=== PATIENT | male | born 1985 | race Caucasian/White ===

== ENCOUNTER 2017-02-09 12:10 | Emergency (ER) | payer MEDICARE, SELFPAY ==
[2017-02-09 12:34] VITALS: BP 140/91
[2017-02-09] MEDS ORDERED: Lactated Ringers 1,000 ML IV ONE ×2 (12:43→13:24)
--- NOTE | 2017-02-09 12:43 | EDM.PDOC ---
ED HPI GI/ABDOMINAL - General Chief Complaint: Gastrointestinal Problem Stated Complaint: VOMITING AND DIARRHEA Time Seen by Provider: 02/09/17 12:37 Source of Information: Reports: Patient History Limitations: Reports: No limitations - History of Present Illness INITIAL COMMENTS - FREE TEXT/NARRATIVE: Patient presents for evaluation and treatment of a headache, nausea, vomiting and diarrhea. Patient reports that the headache is located behind his eyes. He states that he used to frequently get headaches and this is similar to previous headaches. This headache started about 3 days ago. Patient also reports nausea and vomiting. States that the vomiting started today. Reports about 3-4 episodes of vomiting today. Patient also reports that he developed diarrhea today. He states he found about 10 episodes of diarrhea today. Patient denies any fevers, cough, abdominal pain, sore throat, dysuria, hematuria, hematemesis or any melena or hematochezia. Patient denies any ill contacts. He states that he just returned from the [facility] about 3 days ago. He states that they were there for about one month. - Related Data Allergies/ADRs: Allergies Allergy/AdvReac Type Severity Reaction Status Date / Time cefaclor [From [facility]] Allergy Rash Verified 02/09/17 12:25 Penicillins Allergy Rash Verified 02/09/17 12:25 Home Meds: Home Meds ClonazePAM [KlonoPIN] 1 mg PO BID 12/01/14 [History] Levothyroxine 125 mcg PO ACBREAKFAST 02/18/16 [History] Ondansetron [Zofran ODT] 4 mg PO Q6H PRN #15 tab.dis 02/09/17 [Rx] PARoxetine HCl [Paxil] 30 mg PO DAILY 02/09/17 [History] Past Medical History HEENT History: Reports: Impaired vision Other HEENT History: wears eyeglasses Musculoskeletal History: Reports: Fibromyalgia Neurological History: Reports: Concussion, Headaches, chronic Psychiatric History: Reports: Anxiety, Depression, Suicide attempt Endocrine/Metabolic History: Reports: Hypothyroidism Dermatologic History: Reports: Other (see below) Other Dermatologic History: yeast infections - Infectious Disease History Infectious Disease History: Reports: Chicken pox - Past Surgical History HEENT Surgical History: Reports: Myringotomy w tube(s), Naso-sinus surgery, Tonsillectomy Social & Family History - Tobacco Use Smoking Status *Q: Current Some Day Smoker Years of Tobacco use: 12 Packs/Tins Daily: 0.2 Used Tobacco, but Quit: No Second Hand Smoke Exposure: No - Caffeine Use Caffeine Use Comment: unable to obtain - Recreational Drug Use Recreational Drug Use: No Recreational Drug Type: Reports: Other (see below) - Living Situation & Occupation Living situation: Reports: , with family Occupation: unemployed ED ROS GENERAL - Review of Systems Review Of Systems: See Below Constitutional: Reports: chills. Denies: fever HEENT: Denies: Throat pain GI/Abdominal: Reports: Diarrhea, Nausea, Vomiting. Denies: Abdominal pain, Hematochezia, Melena : Reports: no symptoms. Denies: dysuria, hematuria Neurological: Reports: Headache ED EXAM, GI/ABD - Physical Exam Exam: See Below Exam Limited By: No limitations General Appearance: alert, WD/WN, no apparent distress, obese Respiratory/Chest: no respiratory distress, lungs clear, normal breath sounds Cardiovascular: normal peripheral pulses, regular rate, rhythm, no murmur GI/Abdominal: soft, non tender, hyperactive bowel sounds Neurological: alert, oriented, normal cognition Psychiatric: normal affect, normal mood Skin Exam: Warm, Dry Course - Vital Signs Last Recorded V/S: Last Vital Signs Temp 36.7 C 02/09/17 12:29 Pulse 76 02/09/17 16:03 Resp 15 02/09/17 16:03 BP 140/91 H 02/09/17 12:29 Pulse Ox 96 02/09/17 16:03 - Orders/Labs/Meds Orders: Active Orders 24 hr Category Date Time Status Peripheral IV Care [RC] . DIRECTED Care 02/09/17 12:44 Active Peripheral IV Insertion Adult [OM.PC] Routine Oth 02/09/17 12:43 Ordered Labs: Laboratory Tests 02/09/17 02/09/17 Range/Units 12:35 12:35 WBC 14.45 H (4.23-9.07) K/mm3 RBC 5.43 (4.63-6.08) M/mm3 Hgb 15.5 (13.7-17.5) gm/L Hct 43.9 (40.1-51.0) % MCV 80.8 (79.0-92.2) fl MCH 28.5 (25.7-32.2) pg MCHC 35.3 (32.2-35.5) g/dl RDW Std Deviation 38.7 (35.1-43.9) fL Plt Count 289 (163-337) K/mm3 MPV 10.0 (9.4-12.3) fl Neut % (Auto) 80.4 H (34.0-67.9) % Lymph % (Auto) 10.9 L (21.8-53.1) % [place] % (Auto) 8.0 (5.3-12.2) % Eos % (Auto) 0.2 L (0.8-7.0) Baso % (Auto) 0.2 (0.1-1.2) % Neut # (Auto) 11.61 H (1.78-5.38) K/mm3 Lymph # (Auto) 1.58 (1.32-3.57) K/mm3 [place] # (Auto) 1.16 H (0.30-0.82) K/mm3 Eos # (Auto) 0.03 L (0.04-0.54) K/mm3 Baso # (Auto) 0.03 (0.01-0.08) K/mm3 Manual Slide Review Normal smear Sodium 137 (136-145) mEq/L Potassium 3.3 L (3.5-5.1) mEq/L Chloride 100 (98-107) mEq/L Carbon Dioxide 21 (21-32) mEq/L Anion Gap 19.3 H (5-15) BUN 10 (7-18) mg/dL Creatinine 1.1 (0.7-1.3) mg/dL Est Cr Clr Drug Dosing 102.68 mL/min Estimated GFR (MDRD) > 60 (>60) mL/min BUN/Creatinine Ratio 9.1 L (14-18) Glucose 122 H (74-106) mg/dL Calcium 9.2 (8.5-10.1) mg/dL Total Bilirubin 0.6 (0.2-1.0) mg/dL AST 19 (15-37) U/L ALT 34 (16-63) U/L Alkaline Phosphatase 78 (46-116) U/L C-Reactive Protein 0.9 (<1.0) mg/dL Total Protein 8.2 (6.4-8.2) g/dl Albumin 4.2 (3.4-5.0) g/dl Globulin 4.0 gm/dL Albumin/Globulin Ratio 1.1 (1-2) Meds: Medications Discontinued Medications Generic Name Dose Route Start Last Admin Trade Name Dick PRN Reason Stop Dose Admin Lactated Ringer's 1,000 mls @ 999 mls/hr 02/09/17 12:43 02/09/17 12:55 Ringers, Lactated IV 02/09/17 13:43 999 mls/hr .BOLUS ONE Administration Lactated Ringer's 1,000 mls @ 999 mls/hr 02/09/17 13:24 02/09/17 14:00 Ringers, Lactated IV 02/09/17 14:24 999 mls/hr .BOLUS ONE Administration Ketorolac Tromethamine 30 mg 02/09/17 12:44 02/09/17 12:55 Toradol IVPUSH 02/09/17 12:45 30 mg ONETIME ONE Administration Ondansetron HCl 4 mg 02/09/17 12:44 02/09/17 12:55 Zofran IVPUSH 02/09/17 12:45 4 mg ONETIME ONE Administration Potassium Bicarbonate 10 meq 02/09/17 13:48 02/09/17 14:01 Effer-K PO 02/09/17 13:49 10 meq ONETIME ONE Administration Sodium Chloride 10 ml 02/09/17 12:44 02/09/17 12:56 Saline Flush FLUSH 10 ml ASDIRECTED PRN Administration Keep Vein Open - Re-Assessments/Exams Free Text/Narrative Re-Assessment/Exam: 02/09/17 13:29 Headache, nausea and vomiting improved. Plan is to give a 2nd bolus and potassium. Will plan on discharge home today. 02/09/17 15:29 Headache resolved. Nausea resolved. Feeling significantly better Labs returned. WBC is 14.45, hgb is 15.5 and plts are 289 Sodium is 137, potassium is 3.3 (10mEq effer-K given), chloride is 100. Anion gap is 19.3. Glucose is 122 CRP is 0.9 Reviewed the labs with the patient. Advised this will likely last about 1-3 days. Follow-up with family med if symptoms persist beyond 3 days. Discharge instructions as documented. Departure - Departure Time of Disposition: 15:31 Disposition: Home, Self-Care 01 Condition: good Clinical Impression: Gastroenteritis Prescriptions: Ondansetron [Zofran ODT] 4 mg PO Q6H PRN #15 tab.dis PRN Reason: Nausea Instructions: Viral Gastroenteritis, Adult, [id number] Referrals: Taran Richardson MD [Primary Care Provider] - Forms: ED Department Discharge Additional Instructions: Recommend clear liquids and a bland diet. [place] diet recommendations include bread, crackers, soup broth, bananas, egg whites, etc. Take the Zofran one tablet sublingual every 6-8 hours as needed for nausea. Recommend you start a probiotic. These are available [id number]. Expect your illness to last one to 3 days. Should your illness last beyond that followup with family medicine or internal medicine. I recommend Dr. Dolan at the [facility]. call [phone] schedule with him. Please return to the ER should your symptoms change or worsen. - My Orders Last 24 Hours: My Active Orders 02/09/17 12:43 Peripheral IV Insertion Adult [OM.PC] Routine 02/09/17 12:44 Peripheral IV Care [RC] . DIRECTED - Assessment/Plan Last 24 Hours: My Active Orders 02/09/17 12:43 Peripheral IV Insertion Adult [OM.PC] Routine 02/09/17 12:44 Peripheral IV Care [RC] . DIRECTED
[2017-02-09] MEDS ORDERED: Ketorolac 30 MG/ML SDV IVPUSH ONE (12:44)
[2017-02-09] MEDS ORDERED: Ondansetron 4 MG/2 ML SDV IVPUSH ONE (12:44)
[2017-02-09] MEDS ORDERED: Sodium Chloride 0.9% 10 ML Syringe FLUSH PRN (12:44)
[2017-02-09] MEDS ORDERED: Potassium Bicarbonate/Cit Ac 10 MEQ Effervescent Tab PO ONE (13:48)
== END 2017-02-09 16:05 | disposition home or self-care (01) ==
LOC: JD.ED 12:10
DX: K52.9 Noninfective gastroenteritis and colitis, unspecified (principal); F41.9 Anxiety disorder, unspecified; F32.9 Major depressive disorder, single episode, unspecified; E03.9 Hypothyroidism, unspecified; Z88.8 Allergy status to other drugs, medicaments and biological substances; Z88.0 Allergy status to penicillin; Z79.899 Other long term (current) drug therapy; Z98.890 Other specified postprocedural states
CPT/HCPCS: 36415; 80053; 85025; 86140; 96361; 96374; 96375; 99284; A9270; J1885; J2405; J7050; J7120

== ENCOUNTER 2017-12-24 17:32 | Emergency (ER) | payer MEDICARE ==
[2017-12-24 17:41] VITALS: BP 155/93
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
== END 2017-12-24 22:13 | disposition home or self-care (01) ==
LOC: JD.ED 17:32
DX: F22 Delusional disorders (principal); Z88.0 Allergy status to penicillin; Z88.1 Allergy status to other antibiotic agents; E03.9 Hypothyroidism, unspecified; Z87.891 Personal history of nicotine dependence
CPT/HCPCS: 99284

== ENCOUNTER 2017-12-30 19:26 | Emergency (ER) | payer MEDICARE ==
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
[2017-12-30] MEDS ORDERED: OLANZapine 5 MG Tab PO ONE (21:46)
[2017-12-30] MEDS ORDERED: ClonazePAM 1 MG Tab PO ONE (21:47)
[2017-12-30] MEDS ORDERED: traZODone 50 MG Tab PO ONE (21:48)
[2017-12-31] MEDS ORDERED: Haloperidol 5 MG Tab PO ONE (06:30)
[2017-12-31] MEDS ORDERED: OLANZapine 5 MG Tab PO ONE (06:34)
[2017-12-31] MEDS ORDERED: OLANZapine 5 MG Tab ONE (06:41)
[2017-12-31 07:30] VITALS: BP 144/84
== END 2017-12-31 07:28 ==
LOC: JD.ED 19:26
DX: F32.9 Major depressive disorder, single episode, unspecified (principal); F22 Delusional disorders; R45.851 Suicidal ideations; E03.9 Hypothyroidism, unspecified; Z88.1 Allergy status to other antibiotic agents; Z88.0 Allergy status to penicillin; I10 Essential (primary) hypertension; Z87.891 Personal history of nicotine dependence
CPT/HCPCS: 36415; 80053; 80306; 84443; 85025; 99285; A9270-GY; G0480

== ENCOUNTER 2018-01-08 17:19 | Emergency (ER) | payer MEDICARE ==
[2018-01-08 17:36] VITALS: BP 157/92
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
[2018-01-08 18:38] LABS: ACETAMINOPHEN 0 ug/mL (10-30)
== END 2018-01-08 19:40 ==
LOC: JD.ED 17:19
DX: F20.9 Schizophrenia, unspecified (principal); I10 Essential (primary) hypertension; F32.9 Major depressive disorder, single episode, unspecified; E03.9 Hypothyroidism, unspecified; Z87.891 Personal history of nicotine dependence; Z79.899 Other long term (current) drug therapy; Z88.0 Allergy status to penicillin; Z88.1 Allergy status to other antibiotic agents
CPT/HCPCS: 36415; 80053; 80306; 85025; 99285; G0480

== ENCOUNTER 2018-01-21 20:35 | Emergency (ER) | payer MEDICARE ==
[2018-01-21 20:47] VITALS: BP 137/80
--- NOTE | 2018-01-21 21:13 | EDM.PDOCBH ---
ED HPI GENERAL MEDICAL PROBLEM - General Chief Complaint: Behavioral/Psych Stated Complaint: SUICIDAL Time Seen by Provider: 01/21/18 20:53 Source of Information: Reports: Patient History Limitations: Reports: No Limitations - History of Present Illness INITIAL COMMENTS - FREE TEXT/NARRATIVE: 32-year-old male presents for evaluation and treatment of suicidal ideation. This is the patient's fourth visit to the ER this month for psychiatric illness. He has a history of depression, anxiety and schizophrenia. He's been admitted to [facility], twice this month, most recently discharged 4 days ago. He comes in [facility] complaining of suicidal thoughts and a plan. He states that he has many plans. Reports that he has been considering knives. He does not have a gun at home. He has had suicidal attempts in the past including overdose. Patient currently sees Dr. braswell at [facility]. He states he saw her a few days ago. They did come up with a crisis plan was instructed to come to the hospital if he has any thoughts of suicide. He is currently taking his medications as prescribed and was recently started on Haldol. He states he feels this is working but he feels he needs medication adjustments. No illicit drug use or alcohol use. Denies any medical concerns. No fevers, chills, nausea, vomiting, chest pain or abdominal pain. - Related Data Allergies Allergy/AdvReac Type Severity Reaction Status Date / Time cefaclor [From [facility]] Allergy Rash Verified 01/21/18 20:42 Penicillins Allergy Rash Verified 01/21/18 20:42 Home Meds: Home Meds ClonazePAM [KlonoPIN] 1 mg PO TID 12/01/14 [History] Levothyroxine 150 mcg PO ACBREAKFAST 02/18/16 [History] ARIPiprazole [Abilify] 10 mg PO DAILY #14 tab 12/24/17 [Rx] Lisinopril 20 mg PO DAILY 12/24/17 [History] Venlafaxine [Effexor] 225 mg PO DAILY 12/24/17 [History] traZODone 200 mg PO BEDTIME 12/24/17 [History] Haldol. 01/21/18 [History] Past Medical History HEENT History: Reports: Impaired Vision Other HEENT History: wears eyeglasses Cardiovascular History: Reports: Hypertension Musculoskeletal History: Reports: Fibromyalgia Neurological History: Reports: Concussion, Headaches, Chronic Psychiatric History: Reports: Anxiety, Depression, Schizophrenia, Suicide Attempt, Suicidal Ideation Endocrine/Metabolic History: Reports: Hypothyroidism Dermatologic History: Reports: Other (See Below) Other Dermatologic History: yeast infections - Infectious Disease History Infectious Disease History: Reports: Chicken Pox - Past Surgical History HEENT Surgical History: Reports: Myringotomy w Tube(s), Naso-Sinus Surgery, Tonsillectomy Social & Family History - Tobacco Use Smoking Status *Q: Former Smoker Years of Tobacco use: 12 Packs/Tins Daily: 0.2 Used Tobacco, but Quit: No Month/Year Tobacco Last Used: 2014 Second Hand Smoke Exposure: No - Caffeine Use Caffeine Use: Reports: Coffee Other Caffeine Use: aspercane thru diet soda Caffeine Use Comment: unable to obtain - Recreational Drug Use Recreational Drug Use: Yes Drug Use in Last 12 Months: Yes Recreational Drug Type: Reports: Marijuana/Hashish Other Recreational Drug Type: adderal - Living Situation & Occupation Living situation: Reports: , with Family Occupation: Unemployed ED ROS GENERAL - Review of Systems Review Of Systems: See Below Constitutional: Denies: Fever, Chills Cardiovascular: Denies: Chest Pain GI/Abdominal: Denies: Abdominal Pain, Nausea, Vomiting ED EXAM, BEHAVIORAL HEALTH - Physical Exam Exam: See Below Exam Limited By: No Limitations General Appearance: Alert, WD/WN, No Apparent Distress, Obese Ears: Normal External Exam Throat/Mouth: Normal Inspection, Normal Voice, No Airway Compromise Respiratory/Chest: No Respiratory Distress, Lungs Clear, Normal Breath Sounds Cardiovascular: Normal Peripheral Pulses, Regular Rate, Rhythm, No Murmur GI/Abdominal: Soft, Non-Tender Neurological: Alert, Normal Mood/Affect, Normal Cognition Psychiatric: Depressed Mood, Suicidal Plan, Suicidal Thoughts, Paranoid Thoughts Skin Exam: Warm, Dry, Normal color COURSE, BEHAVIORAL HEALTH COMP - Course Vital Signs: Last Vital Signs Temp 36.4 C 01/21/18 20:44 Pulse 110 H 01/21/18 20:44 Resp 16 01/21/18 20:44 BP 137/80 01/21/18 20:44 Pulse Ox 96 01/21/18 20:44 Orders, Labs, Meds: Active Orders 24 hr Category Date Time Status DRUG SCREEN, URINE [URCHEM] Stat Lab 01/21/18 22:00 Ordered UA W/MICROSCOPIC [URIN] Stat Lab 01/21/18 22:00 Ordered Laboratory Tests 01/21/18 01/21/18 01/21/18 Range/Units 21:15 21:15 21:15 WBC 11.51 H (4.23-9.07) K/mm3 RBC 5.09 (4.63-6.08) M/mm3 Hgb 14.9 (13.7-17.5) gm/L Hct 44.1 (40.1-51.0) % MCV 86.6 (79.0-92.2) fl MCH 29.3 (25.7-32.2) pg MCHC 33.8 (32.2-35.5) g/dl RDW Std Deviation 40.6 (35.1-43.9) fL Plt Count 290 (163-337) K/mm3 MPV 11.0 (9.4-12.3) fl Neut % (Auto) 58.3 (34.0-67.9) % Lymph % (Auto) 30.6 (21.8-53.1) % [place] % (Auto) 7.8 (5.3-12.2) % Eos % (Auto) 2.6 (0.8-7.0) Baso % (Auto) 0.3 (0.1-1.2) % Neut # (Auto) 6.70 H (1.78-5.38) K/mm3 Lymph # (Auto) 3.52 (1.32-3.57) K/mm3 [place] # (Auto) 0.90 H (0.30-0.82) K/mm3 Eos # (Auto) 0.30 (0.04-0.54) K/mm3 Baso # (Auto) 0.04 (0.01-0.08) K/mm3 Sodium 142 (136-145) mEq/L Potassium 3.8 (3.5-5.1) mEq/L Chloride 104 (98-107) mEq/L Carbon Dioxide 26 (21-32) mEq/L Anion Gap 15.8 H (5-15) BUN 13 (7-18) mg/dL Creatinine 1.4 H (0.7-1.3) mg/dL Est Cr Clr Drug Dosing 79.93 mL/min Estimated GFR (MDRD) 58 (>60) mL/min BUN/Creatinine Ratio 9.3 L (14-18) Glucose 102 (74-106) mg/dL Calcium 9.3 (8.5-10.1) mg/dL Total Bilirubin 0.2 (0.2-1.0) mg/dL AST 37 (15-37) U/L ALT 47 (16-63) U/L Alkaline Phosphatase 59 (46-116) U/L Total Protein 7.4 (6.4-8.2) g/dl Albumin 4.3 (3.4-5.0) g/dl Globulin 3.1 gm/dL Albumin/Globulin Ratio 1.4 (1-2) TSH 3rd Generation 15.784 H (0.358-3.74) uIU/mL Urine Color (Yellow) Urine Appearance (Clear) Urine pH (5.0-8.0) Ur Specific [place] (1.005-1.030) Urine Protein (Negative) Urine Glucose (UA) (Negative) Urine Ketones (Negative) Urine Occult Blood (Negative) Urine Nitrite (Negative) Urine Bilirubin (Negative) Urine Urobilinogen (0.2-1.0) Ur Leukocyte Esterase (Negative) Urine RBC (0-5) /hpf Urine WBC (0-5) /hpf Ur Epithelial Cells (0-5) /hpf Urine Bacteria (FEW) /hpf Urine Mucus (FEW) /hpf Salicylates 1.3 L (2.8-20) mg/dL Urine Opiates Screen (NEGATIVE) Ur Buprenorphine Scrn (NEGATIVE) Ur Oxycodone Screen (NEGATIVE) Urine Methadone Screen (NEGATIVE) Ur Propoxyphene Screen (NEGATIVE) Acetaminophen 0 L (10-30) ug/mL Ur Barbiturates Screen (NEGATIVE) Ur Tricyclics Screen (NEGATIVE) Ur Phencyclidine Scrn (NEGATIVE) Ur Amphetamine Screen (NEGATIVE) U Methamphetamines Scrn (NEGATIVE) U Benzodiazepines Scrn (NEGATIVE) U Cocaine Metab Screen (NEGATIVE) U Marijuana (THC) Screen (NEGATIVE) Ethyl Alcohol 0.00 (0.00) gm% 01/21/18 01/21/18 Range/Units 22:00 22:00 WBC (4.23-9.07) K/mm3 RBC (4.63-6.08) M/mm3 Hgb (13.7-17.5) gm/L Hct (40.1-51.0) % MCV (79.0-92.2) fl MCH (25.7-32.2) pg MCHC (32.2-35.5) g/dl RDW Std Deviation (35.1-43.9) fL Plt Count (163-337) K/mm3 MPV (9.4-12.3) fl Neut % (Auto) (34.0-67.9) % Lymph % (Auto) (21.8-53.1) % Bo[place] % (Auto) (5.3-12.2) % Eos % (Auto) (0.8-7.0) Baso % (Auto) (0.1-1.2) % Neut # (Auto) (1.78-5.38) K/mm3 Lymph # (Auto) (1.32-3.57) K/mm3 Bo[place] # (Auto) (0.30-0.82) K/mm3 Eos # (Auto) (0.04-0.54) K/mm3 Baso # (Auto) (0.01-0.08) K/mm3 Sodium (136-145) mEq/L Potassium (3.5-5.1) mEq/L Chloride (98-107) mEq/L Carbon Dioxide (21-32) mEq/L Anion Gap (5-15) BUN (7-18) mg/dL Creatinine (0.7-1.3) mg/dL Est Cr Clr Drug Dosing mL/min Estimated GFR (MDRD) (>60) mL/min BUN/Creatinine Ratio (14-18) Glucose (74-106) mg/dL Calcium (8.5-10.1) mg/dL Total Bilirubin (0.2-1.0) mg/dL AST (15-37) U/L ALT (16-63) U/L Alkaline Phosphatase (46-116) U/L Total Protein (6.4-8.2) g/dl Albumin (3.4-5.0) g/dl Globulin gm/dL Albumin/Globulin Ratio (1-2) TSH 3rd Generation (0.358-3.74) uIU/mL Urine Color Yellow (Yellow) Urine Appearance Clear (Clear) Urine pH 6.5 (5.0-8.0) Ur Specific [place] 1.020 (1.005-1.030) Urine Protein Negative (Negative) Urine Glucose (UA) Negative (Negative) Urine Ketones Negative (Negative) Urine Occult Blood Negative (Negative) Urine Nitrite Negative (Negative) Urine Bilirubin Negative (Negative) Urine Urobilinogen 0.2 (0.2-1.0) Ur Leukocyte Esterase Negative (Negative) Urine RBC 0-5 (0-5) /hpf Urine WBC Not seen (0-5) /hpf Ur Epithelial Cells 0-5 (0-5) /hpf Urine Bacteria Not seen (FEW) /hpf Urine Mucus Not seen (FEW) /hpf Salicylates (2.8-20) mg/dL Urine Opiates Screen Negative (NEGATIVE) Ur Buprenorphine Scrn Negative (NEGATIVE) Ur Oxycodone Screen Negative (NEGATIVE) Urine Methadone Screen Negative (NEGATIVE) Ur Propoxyphene Screen Negative (NEGATIVE) Acetaminophen (10-30) ug/mL Ur Barbiturates Screen Negative (NEGATIVE) Ur Tricyclics Screen Negative (NEGATIVE) Ur Phencyclidine Scrn Negative (NEGATIVE) Ur Amphetamine Screen Negative (NEGATIVE) U Methamphetamines Scrn Negative (NEGATIVE) U Benzodiazepines Scrn Negative (NEGATIVE) U Cocaine Metab Screen Negative (NEGATIVE) U Marijuana (THC) Screen Negative (NEGATIVE) Ethyl Alcohol (0.00) gm% Medications Discontinued Medications Generic Name Dose Route Start Last Admin Trade Name Freq PRN Reason Stop Dose Admin Ketorolac Tromethamine 60 mg 01/21/18 21:32 01/21/18 21:41 Toradol IM 01/21/18 21:33 60 mg ONETIME ONE Administration Re-Assessment/Re-Exam: 22:45 I reviewed the labs with the patient. Denies any medical concerns. Reviewed his TSH with him. He is hypothyroid. I informed him when he comes back he should see primary care provider to have his thyroid medication adjusted. Case discussed with Dr. Rai, psychiatrist on-call at [facility] in [place]. She agrees to accept the patient. Departure - Departure Time of Disposition: 22:46 Disposition: DC/Tfer to Psych Hosp/Unit [facility] Condition: Fair Clinical Impression: Suicidal ideation - Discharge Information Referrals: Indira Braswell MD [Primary Care Provider] - Forms: ED Department Discharge Additional Instructions: Patient will go by Unit Aide's Department to [facility] in [place]. Dr. Rai excepting. When he is to return home he should follow-up with family medicine for routine checkup as well as adjustments in his thyroid medication. - My Orders Last 24 Hours: My Active Orders 01/21/18 22:00 DRUG SCREEN, URINE [URCHEM] Stat UA W/MICROSCOPIC [URIN] Stat - Assessment/Plan Last 24 Hours: My Active Orders 01/21/18 22:00 DRUG SCREEN, URINE [URCHEM] Stat UA W/MICROSCOPIC [URIN] Stat
[2018-01-21] MEDS ORDERED: Ketorolac 60 MG/2 ML SDV IM ONE (21:32)
== END 2018-01-21 23:33 ==
LOC: JD.ED 20:35
DX: R45.851 Suicidal ideations (principal); I10 Essential (primary) hypertension; F41.9 Anxiety disorder, unspecified; F32.9 Major depressive disorder, single episode, unspecified; Z88.0 Allergy status to penicillin; Z88.8 Allergy status to other drugs, medicaments and biological substances; Z79.899 Other long term (current) drug therapy; Z87.891 Personal history of nicotine dependence
CPT/HCPCS: 36415; 80053; 80306; 81001; 84443; 85025; 96372; 99285; G0480; J1885; 99284

== ENCOUNTER 2018-12-09 21:19 | Emergency (ER) | payer MEDICARE, OTHER ==
[2018-12-09 21:29] VITALS: BP 145/99
--- NOTE | 2018-12-09 22:04 | EDM.PDOCBH ---
ED HPI GENERAL MEDICAL PROBLEM - General Chief Complaint: Behavioral/Psych Stated Complaint: suicidal thoughts Time Seen by Provider: 12/09/18 21:41 Source of Information: Reports: Patient, Family (), RN Notes Reviewed History Limitations: Reports: No Limitations - History of Present Illness INITIAL COMMENTS - FREE TEXT/NARRATIVE: The patient states that he has been feeling suicidal for approximately 3 months. He has not formulated a plan, and has not attempted to harm himself. The patient has a history of anxiety, depression, and schizophrenia, with approximately 5 prior suicide attempts, all by overdose, most recently in 2017. The patient denies having hallucinations, only that he sometimes tells himself "Oh, I ought to kill myself". The patient's Psychiatrist is Dr. Braswell. He states that he last saw her about 5 months ago. He is unable to say why he has not contacted her within the last 3 months. He states, however, that his venlafaxine dosage was increased about 3 months ago per her RN. He states that he has been compliant with his psychiatric medications. The patient's PCP was Gayla Welch. - Related Data Allergies Allergy/AdvReac Type Severity Reaction Status Date / Time cefaclor [From [facility]] Allergy Rash Verified 12/09/18 21:29 Penicillins Allergy Rash Verified 12/09/18 21:29 Home Meds: Home Meds ClonazePAM [KlonoPIN] 1 mg PO TID 12/01/14 [History] Levothyroxine 150 mcg PO ACBREAKFAST 02/18/16 [History] Lisinopril 20 mg PO DAILY 12/24/17 [History] Venlafaxine [Effexor] 225 mg PO DAILY 12/24/17 [History] traZODone 200 mg PO BEDTIME 12/24/17 [History] Past Medical History HEENT History: Reports: Impaired Vision Other HEENT History: wears eyeglasses Cardiovascular History: Reports: Hypertension Neurological History: Reports: Headaches, Chronic Psychiatric History: Reports: Anxiety, Depression, Schizophrenia, Suicide Attempt (x 5, by OD) Endocrine/Metabolic History: Reports: Hypothyroidism, Obesity/BMI 30+ - Infectious Disease History Infectious Disease History: Reports: Chicken Pox - Past Surgical History HEENT Surgical History: Reports: Myringotomy w Tube(s), Naso-Sinus Surgery (x 6) , Tonsillectomy Social & Family History - Family History Family Medical History: Noncontributory - Tobacco Use Smoking Status *Q: Former Smoker Years of Tobacco use: 13 Packs/Tins Daily: 0.5 Month/Year Tobacco Last Used: Quit 2014 - Caffeine Use Caffeine Use: Reports: Coffee Other Caffeine Use: aspercane thru diet soda Caffeine Use Comment: unable to obtain - Alcohol Use Alcohol Use History: Yes Alcohol Use Frequency: Rarely - Recreational Drug Use Recreational Drug Use: Yes Drug Use in Last 12 Months: No Recreational Drug Type: Reports: Marijuana/Hashish (last smoked around 2013) - Living Situation & Occupation Living situation: Reports: , with Spouse, with Family (1 child) Occupation: Unemployed ED ROS GENERAL - Review of Systems Review Of Systems: ROS reveals no pertinent complaints other than HPI. ED EXAM, BEHAVIORAL HEALTH - Physical Exam Exam: See Below Exam Limited By: No Limitations General Appearance: Alert, WD/WN, No Apparent Distress Eye Exam: Bilateral Eye: EOMI, Normal Inspection Ears: Normal External Exam, Hearing Grossly Normal Nose: Normal Inspection Throat/Mouth: Normal Inspection, Normal Lips, Normal Voice, No Airway Compromise Head: Atraumatic, Normocephalic Neck: Normal Inspection, Full Range of Motion Respiratory/Chest: No Respiratory Distress, Lungs Clear, Normal Breath Sounds, No Accessory Muscle Use Cardiovascular: Normal Peripheral Pulses, Regular Rate, Rhythm, No Gallop, No JVD, No Murmur, No Rub GI/Abdominal: Normal Bowel Sounds, Soft, Non-Tender, No Organomegaly, No Distention, No Abnormal Bruit, No Mass, Other (Obese) (Male) Exam: Deferred Rectal (Males) Exam: Deferred Back Exam: Normal Inspection, Full Range of Motion, NT Extremities: Normal Inspection, Normal Range of Motion, No Pedal Edema, Normal Capillary Refill Neurological: Alert, Normal Cognition, No Motor/Sensory Deficits, Oriented x 3 Psychiatric: Normal Affect Skin Exam: Warm, Dry, Intact, Normal color, No rash COURSE, BEHAVIORAL HEALTH COMP - Course Vital Signs: Last Vital Signs Temp 36.6 C 12/09/18 21:25 Pulse 77 12/09/18 21:25 Resp 18 12/09/18 21:25 BP 145/99 H 12/09/18 21:25 Pulse Ox 96 12/09/18 21:25 Medical Clearance: 12/09/18 22:00 While the patient states that he has been feeling suicidal for the past 3 months , he acknowledges that he is not actively suicidal, and has no plan. I explained the 2 options to him, that include attempting to have him psychiatrically admitted, versus following up with his Psychiatrist, Dr. Braswell, at the next available appointment. Initially, the patient thought that he would prefer psychiatric admission, however, I explained the process, which would include medical clearance, then, most likely, transfer to the psychiatric facility via the market asset protection manager's deputies in the morning, as the patient's is unable to drive him and that is provided that we can find a psychiatric bed for him. The patient would prefer [facility], but I am not able to guarantee that [facility] will have a bed available. Under those circumstances, the patient would prefer to follow-up with Dr. Braswell as an outpatient. The patient promised to return to the ED if his depression worsens prior to his being able to see Dr. Braswell. Departure - Departure Time of Disposition: 22:02 Disposition: Home, Self-Care 01 Condition: Fair Clinical Impression: Depression, Feeling suicidal - Discharge Information *PRESCRIPTION DRUG MONITORING PROGRAM REVIEWED*: Not Applicable *COPY OF PRESCRIPTION DRUG MONITORING REPORT IN PATIENT INGRIS: Not Applicable Instructions: Suicidal Feelings: How to Help Yourself Referrals: Indira Braswell MD [Ordering Only Provider] - Forms: ED Department Discharge Additional Instructions: You were seen in the emergency room for 3 months of feeling suicidal, but without a plan, and without trying to harm your self. The option of attempting to find psychiatric placement was offered, but declined. You would prefer to follow-up with your Psychiatrist, Dr. Braswell, as an outpatient. Please contact the office of Dr. Braswell first thing tomorrow morning, Thursday, 12/10, and make an appointment to be seen as soon as possible. If your symptoms of depression and suicidal ideation worsen before you can see Dr. Braswell, please return to the ER for reevaluation.
== END 2018-12-09 22:10 | disposition home or self-care (01) ==
LOC: JD.ED 21:19
DX: F32.9 Major depressive disorder, single episode, unspecified (principal); I10 Essential (primary) hypertension; F41.9 Anxiety disorder, unspecified; Z87.891 Personal history of nicotine dependence; Z88.0 Allergy status to penicillin; Z88.1 Allergy status to other antibiotic agents; Z79.899 Other long term (current) drug therapy
CPT/HCPCS: 99284

== ENCOUNTER 2019-01-07 21:30 | Emergency (ER) | payer MEDICARE, OTHER ==
[2019-01-07 21:40] VITALS: BP 139/87
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
[2019-01-07] MEDS ORDERED: LORazepam 1 MG Tab PO ONE (23:30)
[2019-01-07] MEDS ORDERED: Haloperidol 5 MG Tab PO ONE (23:30)
== END 2019-01-08 00:50 ==
LOC: JD.ED 21:30
DX: F20.0 Paranoid schizophrenia (principal); I10 Essential (primary) hypertension; F32.9 Major depressive disorder, single episode, unspecified; E66.9 Obesity, unspecified; Z88.0 Allergy status to penicillin; Z88.8 Allergy status to other drugs, medicaments and biological substances
CPT/HCPCS: 36415; 80053; 80306; 84443; 85025; 99285; A9270; G0480

== ENCOUNTER 2019-03-08 03:19 | Emergency (ER) | payer MEDICARE ==
[2019-03-08] MEDS ORDERED: Sodium Chloride 0.9% 10 ML Syringe FLUSH PRN (03:25)
[2019-03-08] MEDS ORDERED: Haloperidol Lactate 5 MG/ML SDV IM ONE (03:27)
[2019-03-08] MEDS ORDERED: LORazepam 2 MG/ML SDV IM ONE (03:27)
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
[2019-03-08] MEDS ORDERED: Haloperidol Lactate 5 MG/ML SDV IVPUSH ONE (04:25)
[2019-03-08] MEDS ORDERED: Sodium Chloride 0.9% 1,000 ML IV SCH (04:45)
[2019-03-08] MEDS ORDERED: LORazepam 2 MG/ML SDV IVPUSH ONE ×4 (04:54→09:05)
[2019-03-08] MEDS ORDERED: 50% Dextrose in Water 50 ML Syringe IVPUSH ONE (04:58)
[2019-03-08] MEDS ORDERED: Sodium Chloride 0.9% 1,000 ML IV ONE ×2 (04:58→08:43)
[2019-03-08] MEDS ORDERED: 50% Dextrose in Water 50 ML SDV ONE (05:07)
[2019-03-08] MEDS ORDERED: Potassium Chloride 10 MEQ in Premix Bag 1 BAG IV ONE (05:17)
[2019-03-08] MEDS ORDERED: Magnesium Sulfate/Water 2 GM in Premix Bag 1 BAG IV ONE (05:17)
[2019-03-08] MEDS ORDERED: LORazepam 2 MG/ML SDV IVPUSH PRN (06:40)
[2019-03-08] MEDS ORDERED: LORazepam 2 MG/ML SDV ONE ×2 (06:46→08:03)
[2019-03-08] MEDS ORDERED: Norepinephrine 4 MG in Dextrose 5% in Water 246 ML IV SCH ×4 (07:00→08:15)
[2019-03-08 07:18] VITALS: BP 70/50
[2019-03-08] MEDS ORDERED: levETIRAcetam 500 MG in Sodium Chloride 0.9% 100 ML IV ONE ×2 (08:10→08:15)
[2019-03-08] MEDS ORDERED: Dextrose 5%-0.9% NaCl 1,000 ML ONE (09:29)
--- NOTE | 2019-03-08 09:46 | CT ---
Head CT Technique: Multiple axial sections through the brain were obtained. Intravenous contrast was not utilized. Comparison: Prior MRI brain dated 08/05/12. Findings: Ventricles along with basal cisterns and sulci over the convexities are within normal limits for the patient's age. No abnormal parenchymal densities are seen. No midline shift or mass effect is seen. Bone window settings were reviewed which show minimal areas of mucosal thickening within the maxillary sinuses. Moderate to marked mucosal thickening is noted within the ethmoid and frontal sinus. Previous surgery is noted within the outer table of the frontal sinus with orthopedic hardware in place. No acute calvarial abnormality is appreciated. Impression: 1. Chronic appearing sinus findings as noted above. Previous surgery. 2. No acute intracranial abnormality is identified. Diagnostic code #2
[2019-03-08] MEDS ORDERED: Dextrose 5%-0.9% NaCl 1,000 ML IV SCH (10:15)
== END 2019-03-08 07:50 ==
LOC: JD.ED 03:19 → JD.ICU 05:47 → UNDOADMIN 05:47 → UNDODISIN 07:50 → JD.ED 07:50 → JD.ICU 09:48
DX: T42.4X2A Poisoning by benzodiazepines, intentional self-harm, initial encounter (principal); R41.82 Altered mental status, unspecified; N28.9 Disorder of kidney and ureter, unspecified; F32.89 Other specified depressive episodes; I10 Essential (primary) hypertension; F41.9 Anxiety disorder, unspecified; F20.9 Schizophrenia, unspecified; E03.9 Hypothyroidism, unspecified; Z88.1 Allergy status to other antibiotic agents; Z88.0 Allergy status to penicillin; Z79.899 Other long term (current) drug therapy
CPT/HCPCS: 36415; 51702; 70450; 80053; 80306; 83735; 85025; 93005; 96361; 96365; 96366; 96367; 96372; 96375; 96376; 99285; G0480; J1630; J1953; J2060; J3475; J3480; J7030; J7040; J7042; J7060

== ENCOUNTER 2019-04-13 21:23 | Emergency (ER) | payer MEDICARE ==
[2019-04-13 21:37] VITALS: BP 152/97
[2019-04-13] MEDS ORDERED: ARIPiprazole 5 MG Tab PO ONE (22:03)
[2019-04-13] MEDS ORDERED: ClonazePAM 1 MG Tab PO STA (22:03)
--- NOTE | 2019-04-13 22:05 | EDM.PDOCBH ---
ED HPI GENERAL MEDICAL PROBLEM - General Chief Complaint: Behavioral/Psych Stated Complaint: SUICIDAL IDEATIONS Time Seen by Provider: 04/13/19 22:03 Source of Information: Reports: Patient, Old Records History Limitations: Reports: No Limitations - History of Present Illness INITIAL COMMENTS - FREE TEXT/NARRATIVE: 33-year-old male presents for evaluation and treatment of anxiety and paranoia. Patient was seen in our ER proximal one month ago after a suicide attempt. he was admitted to [facility]. Patient reports that he was on Abilify while in the hospital. He states that he can no longer afford it. He saw Dr. braswell after leaving the hospital and was placed on Zyprexa but states he gained to much weight. He was then switched to Haldol. His currently on Haldol 10 mg twice a day. He does not feel that this is benefiting him. He is currently experiencing paranoia and talks extensively about his electronics listening to him and controlling him. He expresses that he knows that this is not real but it still feels very real to him. He also is experiencing anxiety. He states that he is "not really "suicidal. He has no suicidal plan and has no homicidal ideations or plans. At This time he has no auditory or visual hallucinations. He was prescribed clonazepam 1 mg twice a day but has not taken this recently. patient sees Dr. braswell at [facility]. Patient reports other than the anxiety and paranoia he is doing well. When asked how he is feeling he states he feels "obese ". - Related Data Allergies Allergy/AdvReac Type Severity Reaction Status Date / Time cefaclor [From [facility]] Allergy Rash Verified 12/09/18 21:29 Penicillins Allergy Rash Verified 12/09/18 21:29 Home Meds: Home Meds ClonazePAM [KlonoPIN] 1 mg PO BID 12/01/14 [History] Levothyroxine 150 mcg PO ACBREAKFAST 02/18/16 [History] Lisinopril 40 mg PO DAILY 12/24/17 [History] Venlafaxine [Effexor] 300 mg PO DAILY 12/24/17 [History] traZODone 150 mg PO BEDTIME 12/24/17 [History] ARIPiprazole [Abilify] 15 mg PO DAILY #14 tablet 04/13/19 [Rx] Haloperidol [Haldol] 10 mg PO BID 04/13/19 [History] Past Medical History HEENT History: Reports: Impaired Vision Other HEENT History: wears eyeglasses Cardiovascular History: Reports: Hypertension Gastrointestinal History: Reports: Gastritis Musculoskeletal History: Reports: Fibromyalgia Neurological History: Reports: Headaches, Chronic Psychiatric History: Reports: Anxiety, Depression, Schizophrenia, Suicide Attempt Endocrine/Metabolic History: Reports: Hypothyroidism, Obesity/BMI 30+ Dermatologic History: Reports: Other (See Below) Other Dermatologic History: yeast infections - Infectious Disease History Infectious Disease History: Reports: Chicken Pox - Past Surgical History HEENT Surgical History: Reports: Myringotomy w Tube(s), Naso-Sinus Surgery, Tonsillectomy Social & Family History - Family History Family Medical History: Noncontributory - Tobacco Use Smoking Status *Q: Current Every Day Smoker Years of Tobacco use: 15 Packs/Tins Daily: 0.5 - Caffeine Use Caffeine Use: Reports: Coffee, Energy Drinks, Soda Other Caffeine Use: aspercane thru diet soda Caffeine Use Comment: unable to obtain - Recreational Drug Use Recreational Drug Use: No - Living Situation & Occupation Living situation: Reports: , with Spouse, with Family (1 child) Occupation: Unemployed ED ROS GENERAL - Review of Systems Review Of Systems: See Below Psychiatric: Reports: Anxiety, Other (reports paranoia). Denies: Hallucinations , Homicidal Ideation, Suicidal Ideation ("not really suicidal", no plan) ED EXAM, BEHAVIORAL HEALTH - Physical Exam Exam: See Below Exam Limited By: No Limitations General Appearance: Alert, WD/WN, No Apparent Distress, Obese Respiratory/Chest: No Respiratory Distress, Lungs Clear, Normal Breath Sounds Cardiovascular: Normal Peripheral Pulses, Regular Rate, Rhythm, Systolic Murmur Neurological: Alert Psychiatric: Alert, Paranoid Thoughts. No: Non-Communicative, Poor Eye Contact , Homicidal Thoughts, Suicidal Plan, Suicidal Thoughts, Threatening Behavior Skin Exam: Warm, Dry, Normal color COURSE, BEHAVIORAL HEALTH COMP - Course Vital Signs: Last Vital Signs Temp 98.8 F 04/13/19 21:35 Pulse 112 H 04/13/19 21:35 Resp 20 04/13/19 21:35 BP 152/97 H 04/13/19 21:35 Pulse Ox 96 04/13/19 21:35 Orders, Labs, Meds: Medications Discontinued Medications Generic Name Dose Route Start Last Admin Trade Name Freq PRN Reason Stop Dose Admin Aripiprazole 15 mg 04/13/19 22:03 04/13/19 22:09 Abilify PO 04/13/19 22:04 15 mg ONETIME ONE Administration Clonazepam 1 mg 04/13/19 22:03 04/13/19 22:09 Klonopin PO 04/13/19 22:04 1 mg NOW STA Administration Re-Assessment/Re-Exam: 22:14 Spoke with both the patient and his , Izabella Hernandes, about disposition. states that he does not really feel suicidal at this time and has no suicidal plan. No homicidal thoughts or plans. He states that it is more the paranoia and anxiety that is causing distress at this time. We discussed inpatient treatment he does not feel it is to that point yet and his agrees. She feels safe at home. Pascual also feel safe at home. We discussed medication changes and he feels that the Abilify is the best medication for him, unfortunate, due to cost concerns has not been able to afford this. We decided we will give him a dose of Abilify tonight. He is normally on fillet 30 mg of Abilify. Starting dose for schizophrenia 10-15 mg. I will give him a 15 mg dose here in the ER tonight as well as 1 mg of clonazepam as he has not taken this. I will discharge them home witprescription for 15 mg of Abilify instructions follow-up with Dr. braswell. He is in agreement and understanding and both him and his agree to return if his symptoms change or worsen. Departure - Departure Time of Disposition: 22:14 Disposition: Home, Self-Care 01 Condition: Fair Clinical Impression: Anxiety, Paranoid delusion - Discharge Information *PRESCRIPTION DRUG MONITORING PROGRAM REVIEWED*: No *COPY OF PRESCRIPTION DRUG MONITORING REPORT IN PATIENT INGRIS: No Prescriptions: ARIPiprazole [Abilify] 15 mg PO DAILY #14 tablet Referrals: Indira Braswell MD [Primary Care Provider] - Forms: ED Department Discharge Additional Instructions: Follow-up with Dr. Braswell tomorrow. Call right away in the morning and let them know you were in the ER and we wanted you seen tomorrow. Stop the haldol and restart the ability. Start with 15mg PO daily, you will likely need this increased. continue to take your clonazepam as prescribed. Please return to the ER should your symptoms change or worsen.
== END 2019-04-13 22:28 | disposition home or self-care (01) ==
LOC: SUPCPDRO 21:23 → JD.ED 21:23
DX: F41.9 Anxiety disorder, unspecified (principal); F22 Delusional disorders; I10 Essential (primary) hypertension; F32.9 Major depressive disorder, single episode, unspecified; E03.9 Hypothyroidism, unspecified; F17.210 Nicotine dependence, cigarettes, uncomplicated; Z88.0 Allergy status to penicillin; Z79.899 Other long term (current) drug therapy; Z88.1 Allergy status to other antibiotic agents
CPT/HCPCS: 99284; A9270; 99283

== ENCOUNTER 2019-10-10 19:30 | Emergency (ER) | payer MEDICARE, OTHER ==
[2019-10-10 19:40] VITALS: BP 128/77; PULSE 118
--- NOTE | 2019-10-10 19:45 | EDM.PDOCBH ---
<Anthony Lara - Last Filed: 10/11/19 07:24> ED HPI GENERAL MEDICAL PROBLEM - General Chief Complaint: Behavioral/Psych Stated Complaint: [facility] Time Seen by Provider: 10/10/19 19:45 - History of Present Illness INITIAL COMMENTS - FREE TEXT/NARRATIVE: 33-year-old male presents emergency room with suicidal thoughts. This is been going on for the last 3 days. He has not done any physical harm to himself however he has held knives to parts of his body. He suffers from schizophrenia and has had several suicidal attempts in the past. He states he is taking his medication as normal and denies any illicit drug or alcohol use. He is hearing voices but has a hard time elaborating on what they are telling him. He denies any recent illnesses. - Related Data Allergies Allergy/AdvReac Type Severity Reaction Status Date / Time cefaclor [From [facility]] Allergy Rash Verified 10/10/19 19:35 Penicillins Allergy Rash Verified 10/10/19 19:35 Home Meds: Home Meds ClonazePAM [KlonoPIN] 1 mg PO TID 12/01/14 [History] traZODone 100 mg PO BEDTIME 12/24/17 [History] Levothyroxine 150 mcg PO ACBREAKFAST 10/10/19 [History] Venlafaxine [Effexor XR] 300 mg PO DAILY 10/10/19 [History] lisinopriL [Lisinopril] 40 mg PO DAILY 10/10/19 [History] Past Medical History HEENT History: Reports: Impaired Vision Other HEENT History: wears eyeglasses Cardiovascular History: Reports: Hypertension Gastrointestinal History: Reports: Gastritis Genitourinary History: Reports: None Musculoskeletal History: Reports: Fibromyalgia Neurological History: Reports: Headaches, Chronic Psychiatric History: Reports: Anxiety, Depression, Schizophrenia, Suicide Attempt Endocrine/Metabolic History: Reports: Hypothyroidism, Obesity/BMI 30+ Hematologic History: Reports: None Immunologic History: Reports: None Oncologic (Cancer) History: Reports: None Dermatologic History: Reports: Other (See Below) Other Dermatologic History: yeast infections - Infectious Disease History Infectious Disease History: Reports: Chicken Pox - Past Surgical History Head Surgeries/Procedures: Reports: None HEENT Surgical History: Reports: Myringotomy w Tube(s), Naso-Sinus Surgery, Tonsillectomy Male Surgical History: Reports: None Social & Family History - Family History Family Medical History: Noncontributory Cardiac: Reports: CAD Oncologic: Reports: Lung, Ovarian, Other (See Below) Other Oncologic Family History: tongue - Tobacco Use Years of Tobacco use: 10 Packs/Tins Daily: 1 Used Tobacco, but Quit: No - Caffeine Use Caffeine Use: Reports: Coffee, Energy Drinks, Soda, Tea Other Caffeine Use: aspercane thru diet soda Caffeine Use Comment: unable to obtain - Alcohol Use Days Per Week of Alcohol Use: 3 Number of Drinks Per Day: 4 Total Drinks Per Week: 12 - Recreational Drug Use Recreational Drug Use: No - Living Situation & Occupation Living situation: Reports: , with Spouse, with Family (1 child) Occupation: Unemployed ED ROS GENERAL - Review of Systems Review Of Systems: See Below Constitutional: Reports: No Symptoms HEENT: Reports: No Symptoms Respiratory: Reports: Shortness of Breath (He has dyspnea on exertion he thinks this is getting worse after gaining weight). Denies: Cough Cardiovascular: Reports: No Symptoms Endocrine: Reports: No Symptoms GI/Abdominal: Reports: No Symptoms : Reports: No Symptoms Musculoskeletal: Reports: No Symptoms Skin: Reports: No Symptoms Neurological: Reports: No Symptoms Psychiatric: Reports: Depression, Hallucinations, Suicidal Ideation. Denies: Agitation, Anxiety Hematologic/Lymphatic: Reports: No Symptoms Immunologic: Reports: No Symptoms ED EXAM, BEHAVIORAL HEALTH - Physical Exam Exam: See Below Exam Limited By: No Limitations General Appearance: Alert, No Apparent Distress Eye Exam: Bilateral Eye: Normal Inspection Ears: Normal External Exam, Normal Canal, Hearing Grossly Normal, Normal TMs Nose: Normal Inspection, Normal Mucosa, No Blood Throat/Mouth: Normal Inspection, Normal Lips, Normal Gums, Normal Oropharynx, Normal Voice, No Airway Compromise Head: Atraumatic, Normocephalic Neck: Normal Inspection, Supple, Non-Tender, Full Range of Motion Respiratory/Chest: No Respiratory Distress, Lungs Clear, Normal Breath Sounds, No Accessory Muscle Use, Chest Non-Tender Cardiovascular: Regular Rate, Rhythm, No Edema, No Murmur GI/Abdominal: Normal Bowel Sounds, Soft, Non-Tender, Other (Obese) Back Exam: Normal Inspection. No: CVA Tenderness (L), CVA Tenderness (R) Extremities: Normal Inspection, No Pedal Edema Neurological: Alert, Normal Mood/Affect, Normal Cognition Psychiatric: Suicidal Plan (He was putting knives to himself but never applied any pressure.), Suicidal Thoughts, Auditory Hallucinations. No: Homicidal Thoughts COURSE, BEHAVIORAL HEALTH COMP - Course Vital Signs: Last Vital Signs Temp 36.6 C 10/10/19 19:37 Pulse 118 H 10/10/19 19:37 Resp 18 10/10/19 19:37 BP 128/77 10/10/19 19:37 Pulse Ox 95 10/10/19 19:37 Orders, Labs, Meds: Laboratory Tests 10/10/19 10/10/19 10/10/19 Range/Units 20:08 20:08 20:12 WBC 9.64 H (4.23-9.07) K/mm3 RBC 5.17 (4.63-6.08) M/mm3 Hgb 14.5 (13.7-17.5) gm/dl Hct 43.2 (40.1-51.0) % MCV 83.6 (79.0-92.2) fl MCH 28.0 (25.7-32.2) pg MCHC 33.6 (32.2-35.5) g/dl RDW Std Deviation 41.2 (35.1-43.9) fL Plt Count 219 D (163-337) K/mm3 MPV 9.9 (9.4-12.3) fl Neutrophils % (Manual) 80 H (40-60) % Band Neutrophils % 0 (0-10) % Lymphocytes % (Manual) 14 L (20-40) % Atypical Lymphs % 0 % Monocytes % (Manual) 3 (2-10) % Eosinophils % (Manual) 3 (0.8-7.0) % Basophils % (Manual) 0 L (0.2-1.2) Platelet Estimate Adequate RBC Morph Comment Normal PT (9.7-12.0) SECONDS INR Sodium (136-145) mEq/L Potassium (3.5-5.1) mEq/L Chloride (98-107) mEq/L Carbon Dioxide (21-32) mEq/L Anion Gap (5-15) BUN (7-18) mg/dL Creatinine (0.7-1.3) mg/dL Est Cr Clr Drug Dosing mL/min Estimated GFR (MDRD) (>60) mL/min BUN/Creatinine Ratio (14-18) Glucose (74-106) mg/dL Calcium (8.5-10.1) mg/dL Total Bilirubin (0.2-1.0) mg/dL AST (15-37) U/L ALT (16-63) U/L Alkaline Phosphatase (46-116) U/L Total Protein (6.4-8.2) g/dl Albumin (3.4-5.0) g/dl Globulin gm/dL Albumin/Globulin Ratio (1-2) TSH 3rd Generation (0.358-3.74) uIU/mL Urine Color Yellow (Yellow) Urine Appearance Clear (Clear) Urine pH 6.5 (5.0-8.0) Ur Specific Brogan 1.015 (1.005-1.030) Urine Protein Negative (Negative) Urine Glucose (UA) Negative (Negative) Urine Ketones Negative (Negative) Urine Occult Blood Negative (Negative) Urine Nitrite Negative (Negative) Urine Bilirubin Negative (Negative) Urine Urobilinogen 0.2 (0.2-1.0) Ur Leukocyte Esterase Negative (Negative) Urine RBC 0-5 (0-5) /hpf Urine WBC 0-5 (0-5) /hpf Ur Squamous Epith Cells 0-5 (0-5) /hpf Urine Bacteria Few (FEW) /hpf Urine Mucus Not seen (FEW) /hpf Salicylates (2.8-20) mg/dL Urine Opiates Screen Negative (JBQEMC=616) Ur Buprenorphine Scrn Negative (CUTOFF=10) Ur Oxycodone Screen Negative (BFG0RN=998) Urine Methadone Screen Negative (PRT2FJ=942) Ur Propoxyphene Screen Negative (CLGXEM=915) Acetaminophen (10-30) ug/mL Ur Barbiturates Screen Negative (SXDBNU=461) Ur Tricyclics Screen Negative (EVMTKV=857) Ur Phencyclidine Scrn Negative (CUTOFF=25) Ur Amphetamine Screen Negative (DPMQXP=816) U Methamphetamines Scrn Negative (OIUEDW=708) U Benzodiazepines Scrn Negative (UZMWTZ=306) U Cocaine Metab Screen Negative (NIQHJF=409) U Marijuana (THC) Screen Negative (CUTOFF=50) Ethyl Alcohol (0.00) gm% 10/10/19 10/10/19 10/10/19 Range/Units 20:12 20:12 20:12 WBC (4.23-9.07) K/mm3 RBC (4.63-6.08) M/mm3 Hgb (13.7-17.5) gm/dl Hct (40.1-51.0) % MCV (79.0-92.2) fl MCH (25.7-32.2) pg MCHC (32.2-35.5) g/dl RDW Std Deviation (35.1-43.9) fL Plt Count (163-337) K/mm3 MPV (9.4-12.3) fl Neutrophils % (Manual) (40-60) % Band Neutrophils % (0-10) % Lymphocytes % (Manual) (20-40) % Atypical Lymphs % % Monocytes % (Manual) (2-10) % Eosinophils % (Manual) (0.8-7.0) % Basophils % (Manual) (0.2-1.2) Platelet Estimate RBC Morph Comment PT 9.7 (9.7-12.0) SECONDS INR < 0.93 Sodium 137 (136-145) mEq/L Potassium 4.5 (3.5-5.1) mEq/L Chloride 101 (98-107) mEq/L Carbon Dioxide 23 (21-32) mEq/L Anion Gap 17.5 H (5-15) BUN 18 (7-18) mg/dL Creatinine 1.2 (0.7-1.3) mg/dL Est Cr Clr Drug Dosing 92.38 mL/min Estimated GFR (MDRD) > 60 (>60) mL/min BUN/Creatinine Ratio 15.0 (14-18) Glucose 96 (74-106) mg/dL Calcium 9.3 (8.5-10.1) mg/dL Total Bilirubin 0.3 (0.2-1.0) mg/dL AST 40 H (15-37) U/L ALT 58 (16-63) U/L Alkaline Phosphatase 67 (46-116) U/L Total Protein 7.0 (6.4-8.2) g/dl Albumin 3.5 (3.4-5.0) g/dl Globulin 3.5 gm/dL Albumin/Globulin Ratio 1.0 (1-2) TSH 3rd Generation 1.734 (0.358-3.74) uIU/mL Urine Color (Yellow) Urine Appearance (Clear) Urine pH (5.0-8.0) Ur Specific Brogan (1.005-1.030) Urine Protein (Negative) Urine Glucose (UA) (Negative) Urine Ketones (Negative) Urine Occult Blood (Negative) Urine Nitrite (Negative) Urine Bilirubin (Negative) Urine Urobilinogen (0.2-1.0) Ur Leukocyte Esterase (Negative) Urine RBC (0-5) /hpf Urine WBC (0-5) /hpf Ur Squamous Epith Cells (0-5) /hpf Urine Bacteria (FEW) /hpf Urine Mucus (FEW) /hpf Salicylates 0.5 L (2.8-20) mg/dL Urine Opiates Screen (AWKCYR=614) Ur Buprenorphine Scrn (CUTOFF=10) Ur Oxycodone Screen (CAQ0XL=216) Urine Methadone Screen (ZXH3DN=638) Ur Propoxyphene Screen (RUJBPN=975) Acetaminophen 0 L (10-30) ug/mL Ur Barbiturates Screen (MYXUYQ=516) Ur Tricyclics Screen (QJISZG=384) Ur Phencyclidine Scrn (CUTOFF=25) Ur Amphetamine Screen (VCQLBY=188) U Methamphetamines Scrn (DJPJZF=893) U Benzodiazepines Scrn (VMOCMC=899) U Cocaine Metab Screen (DFOJBZ=417) U Marijuana (THC) Screen (CUTOFF=50) Ethyl Alcohol 0.00 (0.00) gm% Medical Clearance: 10/11/19 01:47 Labs are not concerning toxicology negative. And anticipate transfer in the morning via [facility]'s department to [place] in Dr. Cecelia Hill Departure - Departure Time of Disposition: 23:00 Disposition: DC/Tfer to Psych Hosp/Unit 65 Clinical Impression: Suicidal ideation Schizophrenia Qualifiers: Schizophrenia type: paranoid schizophrenia Qualified Code(s): F20.0 - Paranoid schizophrenia - Discharge Information Referrals: PCP,Unknown [Primary Care Provider] - Forms: ED Department Discharge Additional Instructions: Patient transferred by [facility] department to [facility] in [place] department of psychiatry for admission. Sepsis Event Note - Evaluation Sepsis Screening Result: No Definite Risk - Focused Exam Date Exam was Performed: 10/11/19 Time Exam was Performed: 07:24 <Donnell Lema - Last Filed: 10/11/19 11:30> Departure - Departure Time of Disposition: 08:20 Condition: Fair - Discharge Information *PRESCRIPTION DRUG MONITORING PROGRAM REVIEWED*: No *COPY OF PRESCRIPTION DRUG MONITORING REPORT IN PATIENT INGRIS: No
[2019-10-10 21:17] LABS: ACETAMINOPHEN 0 ug/mL (10-30)
== END 2019-10-11 08:20 ==
LOC: JD.ED 19:30
DX: F20.0 Paranoid schizophrenia (principal); F17.210 Nicotine dependence, cigarettes, uncomplicated; I10 Essential (primary) hypertension; F41.9 Anxiety disorder, unspecified; F32.9 Major depressive disorder, single episode, unspecified; Z79.899 Other long term (current) drug therapy; Z88.0 Allergy status to penicillin; Z88.1 Allergy status to other antibiotic agents
CPT/HCPCS: 36415; 80053; 80306; 81001; 84443; 85007; 85027; 85610; 99285; G0480; 99283

== ENCOUNTER 2019-11-10 18:30 | Emergency (ER) | payer MEDICARE, SELFPAY ==
[2019-11-10 18:44] VITALS: BP 172/104; PULSE 114
[2019-11-10] MEDS ORDERED: OLANZapine 10 MG Vial IM ONE (19:14)
--- NOTE | 2019-11-10 19:21 | EDM.PDOCBH ---
ED HPI GENERAL MEDICAL PROBLEM - General Chief Complaint: Behavioral/Psych Stated Complaint: MH ISSUES Time Seen by Provider: 11/10/19 18:52 Source of Information: Reports: Patient, RN Notes Reviewed History Limitations: Reports: No Limitations - History of Present Illness INITIAL COMMENTS - FREE TEXT/NARRATIVE: Patient is a 33-year-old male who presents to the ED for some mental health complaints. Patient is well-known to this ER for multiple suicide attempts, and other mental health issues. The patient is a paranoid schizophrenic. He was most recently [facility] to [facility] [place] the middle of September, he states he was treated there for around 3 days, he was started on Abilify, 15 mg. He states however that this medication makes him want to eat more, and that he gains weight, so he tapered himself off of Abilify. Patient states that he has sensations in his head, that he can only describe as laughing or pulsing sensations, and he states that he hears voices as well. He has been having increased feelings of this as well as his normal paranoia is, for which he relates to electronics. He denies any sort of suicidal ideation thoughts or plans, he denies any homicidal thoughts. He states he can hear voices that are not there, but they are not telling him to do anything or hurt himself. Patient is alert and oriented to time and place and person. He notes that he took all of his other regular medications as previously directed today. He is not complaining of any other sort of symptoms like fever/chills, chest pain, shortness of breath, nausea/vomiting/diarrhea or any sort of abdominal pain. Patient states that his psychologist is Dr. Braswell, and he was supposed to see her on 11/06/2019, but he had to reschedule his appointment, and he is now scheduled to see her on 11/15/2019. - Related Data Allergies Allergy/AdvReac Type Severity Reaction Status Date / Time cefaclor [From [facility]] Allergy Rash Verified 11/10/19 18:42 Penicillins Allergy Rash Verified 11/10/19 18:42 Home Meds: Home Meds Levothyroxine 150 mcg PO ACBREAKFAST 10/10/19 [History] Venlafaxine [Effexor XR] 300 mg PO DAILY 12/16/19 [History] lisinopriL [Lisinopril] 40 mg PO DAILY 10/10/19 [History] Ziprasidone HCl [Geodon] 40 mg PO BEDTIME #7 cap 11/10/19 [Rx] buPROPion [Wellbutrin SR] 150 mg PO DAILY 11/10/19 [History] Past Medical History HEENT History: Reports: Impaired Vision Other HEENT History: wears eyeglasses Cardiovascular History: Reports: Hypertension Gastrointestinal History: Reports: Gastritis Musculoskeletal History: Reports: Fibromyalgia Neurological History: Reports: Headaches, Chronic Psychiatric History: Reports: Anxiety, Depression, Schizophrenia, Suicide Attempt Endocrine/Metabolic History: Reports: Hypothyroidism, Obesity/BMI 30+ Dermatologic History: Reports: Other (See Below) Other Dermatologic History: yeast infections - Infectious Disease History Infectious Disease History: Reports: Chicken Pox - Past Surgical History HEENT Surgical History: Reports: Myringotomy w Tube(s), Naso-Sinus Surgery, Tonsillectomy Social & Family History - Family History Family Medical History: Noncontributory Cardiac: Reports: CAD Oncologic: Reports: Lung, Ovarian, Other (See Below) Other Oncologic Family History: tongue - Tobacco Use Smoking Status *Q: Never Smoker - Caffeine Use Caffeine Use: Reports: Coffee, Energy Drinks, Soda, Tea Other Caffeine Use: aspercane thru diet soda Caffeine Use Comment: unable to obtain - Recreational Drug Use Recreational Drug Use: No - Living Situation & Occupation Living situation: Reports: , with Spouse, with Family (1 child) Occupation: Unemployed ED ROS GENERAL - Review of Systems Review Of Systems: See Below Constitutional: Denies: Fever, Chills Respiratory: Denies: Shortness of Breath, Cough Cardiovascular: Denies: Chest Pain GI/Abdominal: Denies: Abdominal Pain, Diarrhea, Nausea, Vomiting Neurological: Denies: Confusion, Headache Psychiatric: Reports: Hallucinations (auditory), Other (increase in paranoia symptoms). Denies: Agitation, Homicidal Ideation, Mood Lability, Suicidal Ideation ED EXAM, BEHAVIORAL HEALTH - Physical Exam Exam: See Below Exam Limited By: No Limitations General Appearance: Alert, WD/WN, No Apparent Distress Eye Exam: Bilateral Eye: EOMI, Normal Inspection, PERRL Ears: Normal External Exam Nose: Normal Inspection Throat/Mouth: Normal Inspection, Normal Lips, Normal Teeth, Normal Gums, Normal Oropharynx, Normal Voice, No Airway Compromise Head: Atraumatic, Normocephalic Neck: Normal Inspection Respiratory/Chest: No Respiratory Distress, Lungs Clear, Normal Breath Sounds, No Accessory Muscle Use, Chest Non-Tender Cardiovascular: Normal Peripheral Pulses, Regular Rate, Rhythm, No Murmur GI/Abdominal: Normal Bowel Sounds, Soft, Non-Tender, No Distention, No Mass Extremities: Normal Inspection, Normal Capillary Refill Neurological: Alert, CN II-XII Intact (grossly), Normal Gait, Normal Reflexes, No Motor/Sensory Deficits, Oriented x 3 Psychiatric: Alert, Oriented, Auditory Hallucinations (hearing voices, but not telling him to harm himself or others), Paranoid Thoughts (he states mostly about electronics, that make him feel the "pulsatile" feelings in his head.). No: Agitated, Homicidal Thoughts, Suicidal Plan, Suicidal Thoughts, Visual Hallucinations, Pressured Speech Skin Exam: Warm, Dry, Intact, Normal color, No rash COURSE, BEHAVIORAL HEALTH COMP - Course Vital Signs: Last Vital Signs Temp 97.8 F 11/10/19 18:42 Pulse 114 H 11/10/19 18:42 Resp 16 11/10/19 18:42 BP 172/104 H 11/10/19 18:42 Pulse Ox 95 11/10/19 18:42 Orders, Labs, Meds: Medications Discontinued Medications Generic Name Dose Route Start Last Admin Trade Name Dick PRN Reason Stop Dose Admin Olanzapine 10 mg 11/10/19 19:14 11/10/19 19:29 Zyprexa IM 11/10/19 19:15 10 mg ONETIME ONE Administration Discharge vs Psych Eval/Treatment:: 11/10/19 19:26 Patient presents to the ED for evaluation of increased paranoid thoughts. Upon talking with the patient, I do not believe he is a harm to himself or others at this time. He was wanting some sort of medication to help the paranoia that he has been perceiving. I did discuss this with Dr. Lema, and he recommends 10 mg Zyprexa for today's use, and have him follow-up with his psychiatrist or psych nurse tomorrow. He already has an appointment with Dr. Braswell on the , which is next week Thursday, roughly 5 days from now. Upon speaking with the patient, he is upset that all of the antipsychotic medications make him gain weight, and he would like to try one that does not make him gain weight. I did tell him he should talk with Dr. Navarro regarding this, and he states he will try to remember to do this at his next appointment. Departure - Departure Time of Disposition: 19:44 Disposition: Home, Self-Care 01 Condition: Fair Clinical Impression: Schizophrenia Qualifiers: Schizophrenia type: paranoid schizophrenia Qualified Code(s): F20.0 - Paranoid schizophrenia - Discharge Information *PRESCRIPTION DRUG MONITORING PROGRAM REVIEWED*: No *COPY OF PRESCRIPTION DRUG MONITORING REPORT IN PATIENT INGRIS: No Prescriptions: Ziprasidone HCl [Geodon] 40 mg PO BEDTIME #7 cap Instructions: Living With Schizophrenia Referrals: PCP,None [Primary Care Provider] - Forms: ED Department Discharge Additional Instructions: You were evaluated today for your paranoid thoughts. You were given a one-time injection of 10 mg Zyprexa in the ER, and some medication was discussed with you, and you did decide to use Geodon, 40 mg at night for further management of your symptoms until you can be seen by Dr. Braswell next week 11/15/2019. Recommend you try to call her office tomorrow and tell you were seen in the ER and given an injection of Zyprexa for management of your increased paranoia symptoms today. If you should develop any concerning or worsening symptoms, please do not hesitate to return to the ER for further management. Sepsis Event Note - Evaluation Sepsis Screening Result: No Definite Risk - Focused Exam Vital Signs: Vital Signs Temp Pulse Resp BP Pulse Ox 11/10/19 18:42 97.8 F 114 H 16 172/104 H 95 Date Exam was Performed: 11/10/19 Time Exam was Performed: 19:44
== END 2019-11-10 19:54 | disposition home or self-care (01) ==
LOC: JD.ED 18:30
DX: F20.0 Paranoid schizophrenia (principal); I10 Essential (primary) hypertension; F41.9 Anxiety disorder, unspecified; F32.9 Major depressive disorder, single episode, unspecified; E03.9 Hypothyroidism, unspecified; E66.9 Obesity, unspecified; Z68.41 Body mass index [BMI] 40.0-44.9, adult; Z88.8 Allergy status to other drugs, medicaments and biological substances; Z88.0 Allergy status to penicillin; Z79.899 Other long term (current) drug therapy
CPT/HCPCS: 96372; 99284; J3490; 99283

== ENCOUNTER 2019-11-26 19:13 | Emergency (ER) | payer MEDICARE ==
[2019-11-26 19:35] VITALS: BP 142/86; PULSE 100
--- NOTE | 2019-11-26 19:51 | EDM.PDOCBH ---
ED HPI GENERAL MEDICAL PROBLEM - General Chief Complaint: Behavioral/Psych Stated Complaint: mentel issues need to be seen Time Seen by Provider: 11/26/19 19:32 Source of Information: Reports: Patient History Limitations: Reports: No Limitations - History of Present Illness INITIAL COMMENTS - FREE TEXT/NARRATIVE: This is a 33-year-old male. He has a long history of auditory hallucinations for at least 5 years that come and go. Over the last 6 months it's been much more solid in that he has been having ideas like people are thinking his thoughts, that the laughing at him behind his back and the voices are telling him that he is a bad person. Over the last 3 days the voices have changed and now they're telling him to kill himself. Much of the verbalization of these voices is garbled but he does get the sense that they want him to drive on the ice in the [place] and kill himself by falling through the ice. He does see Dr. Braswell at [facility] and she recently has been decreasing his Abilify and increasing the Zyprexia. He does have a history of overdosing some years ago on medications but he does not want to do that now. He also is a cutter. He hasn't cut himself in the last 3 days in fact it's been more than a year since he's cut himself. He is here because the voices are getting to him and he wants some help. He denies being suicidal at this time. He denies any plan. He denies any recent illnesses no colds, coughs, fever chills, nausea or vomiting. - Related Data Allergies Allergy/AdvReac Type Severity Reaction Status Date / Time cefaclor [From [facility]] Allergy Rash Verified 11/26/19 19:35 Penicillins Allergy Rash Verified 11/26/19 19:35 Home Meds: Home Meds Levothyroxine 150 mcg PO ACBREAKFAST 10/10/19 [History] Venlafaxine [Effexor XR] 225 mg PO DAILY 10/10/19 [History] lisinopriL [Lisinopril] 40 mg PO DAILY 10/10/19 [History] buPROPion [Wellbutrin SR] 150 mg PO DAILY 11/10/19 [History] ARIPiprazole [Abilify] 15 mg PO BID 11/26/19 [History] OLANZapine [ZyPREXA] 2 mg PO BID 11/26/19 [History] clonazePAM [Clonazepam] 1 mg PO BID 11/26/19 [History] Past Medical History HEENT History: Reports: Impaired Vision Other HEENT History: wears eyeglasses Cardiovascular History: Reports: Hypertension Gastrointestinal History: Reports: Gastritis Genitourinary History: Reports: None Musculoskeletal History: Reports: Fibromyalgia Neurological History: Reports: Headaches, Chronic Psychiatric History: Reports: Anxiety, Depression, Psych Hospitalization(s), Schizophrenia, Suicide Attempt Endocrine/Metabolic History: Reports: Hypothyroidism, Obesity/BMI 30+ Hematologic History: Reports: None Immunologic History: Reports: None Oncologic (Cancer) History: Reports: None Dermatologic History: Reports: Other (See Below) Other Dermatologic History: yeast infections - Infectious Disease History Infectious Disease History: Reports: Chicken Pox - Past Surgical History Head Surgeries/Procedures: Reports: None HEENT Surgical History: Reports: Myringotomy w Tube(s), Naso-Sinus Surgery, Tonsillectomy Male Surgical History: Reports: None Social & Family History - Family History Family Medical History: Noncontributory Cardiac: Reports: CAD Oncologic: Reports: Lung, Ovarian, Other (See Below) Other Oncologic Family History: tongue - Caffeine Use Caffeine Use: Reports: Coffee, Energy Drinks, Soda, Tea Other Caffeine Use: aspercane thru diet soda Caffeine Use Comment: unable to obtain - Recreational Drug Use Recreational Drug Use: No - Living Situation & Occupation Living situation: Reports: , with Spouse, with Family (1 child) Occupation: Unemployed ED ROS GENERAL - Review of Systems Review Of Systems: See Below Constitutional: Denies: Fever, Chills HEENT: Reports: No Symptoms Respiratory: Denies: Shortness of Breath, Cough Cardiovascular: Denies: Chest Pain Endocrine: Reports: No Symptoms GI/Abdominal: Denies: Abdominal Pain, Diarrhea, Nausea, Vomiting Musculoskeletal: Reports: No Symptoms Skin: Reports: No Symptoms Neurological: Denies: Headache Psychiatric: Reports: Hallucinations, Suicidal Ideation, Other (Auditory hallucinations) Hematologic/Lymphatic: Reports: No Symptoms ED EXAM, BEHAVIORAL HEALTH - Physical Exam Exam: See Below Exam Limited By: No Limitations General Appearance: Alert, WD/WN, No Apparent Distress Eye Exam: Bilateral Eye: Normal Inspection Ears: Normal External Exam, Normal Canal, Normal TMs Nose: Normal Inspection Throat/Mouth: Normal Inspection, Normal Lips, Normal Voice, No Airway Compromise Head: Normocephalic Neck: Supple Respiratory/Chest: No Respiratory Distress, Lungs Clear, Normal Breath Sounds Cardiovascular: Normal Peripheral Pulses, Regular Rate, Rhythm, No Murmur GI/Abdominal: Normal Bowel Sounds, Soft, Non-Tender Back Exam: Normal Inspection, Full Range of Motion Extremities: Normal Inspection, Normal Range of Motion Neurological: Alert, Normal Mood/Affect, Normal Cognition, Oriented x 3 Psychiatric: Alert, Flat Affect, Suicidal Thoughts, Auditory Hallucinations Skin Exam: Warm, Dry COURSE, BEHAVIORAL HEALTH COMP - Course Vital Signs: Last Vital Signs Temp 97.1 F 11/26/19 19:28 Pulse 100 11/26/19 19:28 Resp 20 11/26/19 19:28 BP 142/86 H 11/26/19 19:28 Pulse Ox 95 11/26/19 19:28 Orders, Labs, Meds: Active Orders 24 hr Category Date Time Status OLANZapine [ZyPREXA] Med 11/26/19 20:58 Once 2.5 mg PO ONETIME ONE Medication Orders Olanzapine (Zyprexa) 2.5 mg PO ONETIME ONE Stop: 11/26/19 20:59 Medications Generic Name Dose Route Start Last Admin Trade Name Freq PRN Reason Stop Dose Admin Olanzapine 2.5 mg 11/26/19 20:58 Zyprexa PO 11/26/19 20:59 ONETIME ONE Discharge vs Psych Eval/Treatment:: 11/26/19 20:26 I called the emergency number for [facility] and spoke to Tony and she is going to come up and talk to Nathan about what is going on and they do have some crisis beds open up for males and I am hoping that they allow him to stay in the crisis bed over the weekend to help him through this episode of hearing voices. 11/26/19 21:00 I spoke to Tony and they feel comfortable taking him to a crisis bed. They will attempt to stabilize his medications with the Zyprexa. The patient is not uncooperative but he wants help and I think this is a good option for him to be in the crisis bed. Departure - Departure Time of Disposition: 21:02 Disposition: Home, Self-Care 01 Condition: Fair Clinical Impression: Auditory hallucinations, Suicidal thoughts Schizophrenia Qualifiers: Schizophrenia type: paranoid schizophrenia Qualified Code(s): F20.0 - Paranoid schizophrenia - Discharge Information *PRESCRIPTION DRUG MONITORING PROGRAM REVIEWED*: Not Applicable *COPY OF PRESCRIPTION DRUG MONITORING REPORT IN PATIENT INGRIS: Not Applicable Instructions: Suicidal Feelings: How to Help Yourself Referrals: Indira Braswell MD [Ordering Only Provider] - Forms: ED Department Discharge Additional Instructions: Go with Tony to the crisis bed at [facility], will continue to adjust your medications to help with the voices you are hearing, return to the ER if needed Sepsis Event Note - Evaluation Sepsis Screening Result: No Definite Risk - Focused Exam Vital Signs: Vital Signs Temp Pulse Resp BP Pulse Ox 11/26/19 19:28 97.1 F 100 20 142/86 H 95 Date Exam was Performed: 11/26/19 Time Exam was Performed: 21:00 - My Orders Last 24 Hours: My Active Orders 11/26/19 20:58 OLANZapine [ZyPREXA] 2.5 mg PO ONETIME ONE - Assessment/Plan Last 24 Hours: My Active Orders 11/26/19 20:58 OLANZapine [ZyPREXA] 2.5 mg PO ONETIME ONE
[2019-11-26] MEDS ORDERED: OLANZapine 5 MG Tab PO ONE (20:58)
== END 2019-11-26 21:13 | disposition home or self-care (01) ==
LOC: JD.ED 19:13
DX: F20.0 Paranoid schizophrenia (principal); I10 Essential (primary) hypertension; F32.9 Major depressive disorder, single episode, unspecified; F41.9 Anxiety disorder, unspecified; E03.9 Hypothyroidism, unspecified; E66.9 Obesity, unspecified; Z68.41 Body mass index [BMI] 40.0-44.9, adult; Z88.0 Allergy status to penicillin; Z79.899 Other long term (current) drug therapy
CPT/HCPCS: 99284; A9270; 99283

== ENCOUNTER 2019-12-01 12:25 | Inpatient (IN) | payer MEDICARE ==
[2019-12-01] MEDS ORDERED: Sodium Chloride 0.9% 10 ML Syringe FLUSH PRN (12:29)
[2019-12-01] MEDS ORDERED: Sodium Chloride 0.9% 1,000 ML IV SCH (12:30)
--- NOTE | 2019-12-01 12:30 | EDM.PDOC ---
ED HPI GENERAL MEDICAL PROBLEM - General Chief Complaint: Cardiovascular Problem Stated Complaint: [facility] Time Seen by Provider: 12/01/19 12:28 Source of Information: Reports: Patient, EMS, RN Notes Reviewed - History of Present Illness INITIAL COMMENTS - FREE TEXT/NARRATIVE: 33-year-old male comes in after drug overdose. Reported to have taken 45 trazodone 100 mg dosage, about 30 bupropion 150 mg XL, about 60 olanzapine, 10 mg dosage about 40-50 minutes prior to arrival. History of severe depression. He state that at the time that he took the pills he wanted to . After thinking about his 3-year-old son he changed his mind, called EMS. On EMS arrival he is awake, somewhat drowsy. He was transferred here without further incident. He has not vomited. No chest pain or difficulty breathing. He denies taking tylenol, aspirin or alcohol. - Related Data Allergies Allergy/AdvReac Type Severity Reaction Status Date / Time cefaclor [From Ceclor] Allergy Rash Verified 12/01/19 15:26 Penicillins Allergy Rash Verified 12/01/19 15:26 Home Meds: Home Meds Levothyroxine 150 mcg PO ACBREAKFAST 10/10/19 [History] Venlafaxine [Effexor XR] 225 mg PO DAILY 10/10/19 [History] lisinopriL [Lisinopril] 40 mg PO DAILY 10/10/19 [History] buPROPion [Wellbutrin SR] 150 mg PO DAILY 11/10/19 [History] OLANZapine [ZyPREXA] 2 mg PO BID 11/26/19 [History] clonazePAM [Clonazepam] 1 mg PO BID 11/26/19 [History] traZODone HCl [Trazodone HCl] 150 mg PO BEDTIME 12/01/19 [History] Past Medical History HEENT History: Reports: Impaired Vision Other HEENT History: wears eyeglasses Cardiovascular History: Reports: Hypertension Gastrointestinal History: Reports: Gastritis Genitourinary History: Reports: None Musculoskeletal History: Reports: Fibromyalgia Neurological History: Reports: Headaches, Chronic Psychiatric History: Reports: Anxiety, Depression, Psych Hospitalization(s), Schizophrenia, Suicide Attempt Endocrine/Metabolic History: Reports: Hypothyroidism, Obesity/BMI 30+ Hematologic History: Reports: None Immunologic History: Reports: None Oncologic (Cancer) History: Reports: None Dermatologic History: Reports: Other (See Below) Other Dermatologic History: yeast infections - Infectious Disease History Infectious Disease History: Reports: Chicken Pox - Past Surgical History Head Surgeries/Procedures: Reports: None HEENT Surgical History: Reports: Myringotomy w Tube(s), Naso-Sinus Surgery, Tonsillectomy Male Surgical History: Reports: None Social & Family History - Family History Family Medical History: Noncontributory Cardiac: Reports: CAD Oncologic: Reports: Lung, Ovarian, Other (See Below) Other Oncologic Family History: tongue - Caffeine Use Caffeine Use: Reports: Coffee, Energy Drinks, Soda, Tea Other Caffeine Use: aspercane thru diet soda Caffeine Use Comment: unable to obtain - Living Situation & Occupation Living situation: Reports: , with Spouse, with Family (1 child) Occupation: Unemployed ED ROS GENERAL - Review of Systems Review Of Systems: See Below Constitutional: Reports: No Symptoms HEENT: Denies: Throat Pain Respiratory: Denies: Shortness of Breath Cardiovascular: Denies: Chest Pain GI/Abdominal: Denies: Abdominal Pain, Nausea, Vomiting Musculoskeletal: Reports: No Symptoms Skin: Reports: No Symptoms Neurological: Reports: Dizziness. Denies: Headache, Trouble Speaking ED EXAM, NEURO - Physical Exam Exam: See Below General Appearance: Other (Awake but moderately drowsy) Eye Exam: Bilateral Eye: PERRL Nose: Normal Inspection Throat/Mouth: Other (oral mucosa dry) Head Exam: Atraumatic. No: Facial Swelling Neck: Supple Respiratory/Chest: No Respiratory Distress, Lungs Clear, Normal Breath Sounds. No: Rhonchi, Wheezing Cardiovascular: Tachycardia GI/Abdominal: Soft, Non-Tender Neurological: Alert, No Motor/Sensory Deficits, Oriented x 3 Extremities: Normal Inspection. No: Leg Pain Psychiatric: Depressed Mood, Flat Affect Skin Exam: Warm, Dry, Normal Color EKG INTERPRETATION EKG Date: 12/01/19 Rate (Beats/Min): 122 P-Wave: Present QRS: Normal ST-T: Normal Course - Vital Signs Last Recorded V/S: Last Vital Signs Temp 98.7 F 12/03/19 08:00 Pulse 96 12/03/19 07:59 Resp 21 H 12/03/19 08:00 BP 106/52 L 12/03/19 08:00 Pulse Ox 98 12/03/19 08:00 - Orders/Labs/Meds Orders: Medication Orders Enoxaparin Sodium (Lovenox) 40 mg SUBCUT Q12H [facility] Last Admin: 12/03/19 01:18 Dose: 40 mg Admin: 12/02/19 12:36 Dose: 40 mg Admin: 12/02/19 01:13 Dose: 40 mg Admin: 12/01/19 15:31 Dose: 40 mg Midazolam HCl 50 mg/ Sodium (Chloride) 50 mls @ 0.5 mls/hr IV TITRATE ARNULFO; Protocol Last Admin: 12/03/19 04:04 Dose: 12.5 mg/hr, 12.5 mls/hr Titration: 12/03/19 04:00 Dose: 12.5 mg/hr, 12.5 mls/hr Admin: 12/03/19 00:00 Dose: 12.5 mg/hr, 12.5 mls/hr Titration: 12/02/19 23:34 Dose: 12.5 mg/hr, 12.5 mls/hr Admin: 12/02/19 19:34 Dose: 12.5 mg/hr, 12.5 mls/hr Titration: 12/02/19 19:34 Dose: 12.5 mg/hr, 12.5 mls/hr Admin: 12/02/19 16:46 Dose: 12.5 mg/hr, 12.5 mls/hr Titration: 12/02/19 16:10 Dose: 12.5 mg/hr, 12.5 mls/hr Admin: 12/02/19 12:10 Dose: 12.5 mg/hr, 12.5 mls/hr Titration: 12/02/19 11:35 Dose: 12.5 mg/hr, 12.5 mls/hr Admin: 12/02/19 07:35 Dose: 12.5 mg/hr, 12.5 mls/hr Titration: 12/02/19 07:05 Dose: 12.5 mg/hr, 12.5 mls/hr Admin: 12/02/19 03:05 Dose: 12.5 mg/hr, 12.5 mls/hr Titration: 12/02/19 02:47 Dose: 12.5 mg/hr, 12.5 mls/hr Titration: 12/02/19 01:25 Dose: 12.5 mg/hr, 12.5 mls/hr Admin: 12/01/19 23:15 Dose: 15 mg/hr, 15 mls/hr Titration: 12/01/19 23:15 Dose: 15 mg/hr, 15 mls/hr Admin: 12/01/19 19:55 Dose: 15 mg/hr, 15 mls/hr Titration: 12/01/19 19:29 Dose: 15 mg/hr, 15 mls/hr Admin: 12/01/19 16:09 Dose: 15 mg/hr, 15 mls/hr Titration: 12/01/19 16:09 Dose: 15 mg/hr, 15 mls/hr Titration: 12/01/19 14:55 Dose: 15 mg/hr, 15 mls/hr Admin: 12/01/19 14:54 Dose: 0.5 mg/hr, 0.5 mls/hr Admin: 12/01/19 13:27 Dose: 5 mg/hr, 5 mls/hr Propofol (Diprivan 100 Ml) 100 mls @ 4.355 mls/hr IV TITRATE ARNULFO; Protocol Last Admin: 12/03/19 07:49 Dose: 37 mcg/kg/min, 32.223 mls/hr Titration: 12/03/19 07:49 Dose: 37 mcg/kg/min, 32.223 mls/hr Admin: 12/03/19 04:49 Dose: 37 mcg/kg/min, 32.223 mls/hr Titration: 12/03/19 04:44 Dose: 37 mcg/kg/min, 32.223 mls/hr Titration: 12/03/19 04:32 Dose: 37 mcg/kg/min, 32.223 mls/hr Titration: 12/03/19 02:27 Dose: 40 mcg/kg/min, 34.836 mls/hr Admin: 12/03/19 01:48 Dose: 37 mcg/kg/min, 32.223 mls/hr Titration: 12/03/19 01:48 Dose: 37 mcg/kg/min, 32.223 mls/hr Titration: 12/03/19 01:21 Dose: 37 mcg/kg/min, 32.223 mls/hr Admin: 12/02/19 22:34 Dose: 35 mcg/kg/min, 30.482 mls/hr Titration: 12/02/19 22:34 Dose: 35 mcg/kg/min, 30.482 mls/hr Admin: 12/02/19 19:23 Dose: 35 mcg/kg/min, 30.482 mls/hr Titration: 12/02/19 19:18 Dose: 35 mcg/kg/min, 30.482 mls/hr Admin: 12/02/19 16:01 Dose: 35 mcg/kg/min, 30.482 mls/hr Titration: 12/02/19 15:52 Dose: 35 mcg/kg/min, 30.482 mls/hr Admin: 12/02/19 12:35 Dose: 35 mcg/kg/min, 30.482 mls/hr Titration: 12/02/19 12:35 Dose: 35 mcg/kg/min, 30.482 mls/hr Admin: 12/02/19 09:57 Dose: 35 mcg/kg/min, 30.482 mls/hr Titration: 12/02/19 09:41 Dose: 35 mcg/kg/min, 30.482 mls/hr Admin: 12/02/19 06:24 Dose: 35 mcg/kg/min, 30.482 mls/hr Titration: 12/02/19 06:16 Dose: 35 mcg/kg/min, 30.482 mls/hr Admin: 12/02/19 02:59 Dose: 35 mcg/kg/min, 30.482 mls/hr Titration: 12/02/19 02:57 Dose: 35 mcg/kg/min, 30.482 mls/hr Admin: 12/01/19 23:40 Dose: 35 mcg/kg/min, 30.482 mls/hr Titration: 12/01/19 23:40 Dose: 35 mcg/kg/min, 30.482 mls/hr Titration: 12/01/19 20:30 Dose: 35 mcg/kg/min, 30.482 mls/hr Admin: 12/01/19 20:23 Dose: 30 mcg/kg/min, 26.127 mls/hr Titration: 12/01/19 20:11 Dose: 30 mcg/kg/min, 26.127 mls/hr Titration: 12/01/19 18:02 Dose: 30 mcg/kg/min, 26.127 mls/hr Admin: 12/01/19 16:47 Dose: 40 mcg/kg/min, 34.836 mls/hr Titration: 12/01/19 16:47 Dose: 40 mcg/kg/min, 34.836 mls/hr Titration: 12/01/19 16:45 Dose: 40 mcg/kg/min, 34.836 mls/hr Titration: 12/01/19 16:14 Dose: 20 mcg/kg/min, 17.418 mls/hr Titration: 12/01/19 15:47 Dose: 30 mcg/kg/min, 26.127 mls/hr Titration: 12/01/19 14:52 Dose: 40 mcg/kg/min, 34.836 mls/hr Admin: 12/01/19 13:20 Dose: 5 mcg/kg/min, 4.355 mls/hr Norepinephrine Bitartrate 16 (mg/ Dextrose/Water) 250 mls @ 18.75 mls/hr IV TITRATE ARNULFO; Protocol Last Titration: 12/03/19 04:31 Dose: 12 mcg/min, 11.25 mls/hr Titration: 12/02/19 19:18 Dose: 10 mcg/min, 9.37 mls/hr Titration: 12/02/19 18:30 Dose: 12 mcg/min, 11.25 mls/hr Titration: 12/02/19 18:15 Dose: 15 mcg/min, 14.06 mls/hr Titration: 12/02/19 17:08 Dose: 17 mcg/min, 15.93 mls/hr Titration: 12/02/19 16:39 Dose: 18 mcg/min, 16.87 mls/hr Titration: 12/02/19 14:55 Dose: 19 mcg/min, 17.81 mls/hr Admin: 12/02/19 14:21 Dose: 20 mcg/min, 18.75 mls/hr Dextrose/Sodium Chloride (Dextrose 5%-Normal Saline) 1,000 mls @ 75 mls/hr IV ASDIRECTED ARNULFO Last Infusion: 12/03/19 02:28 Dose: 11 mls/hr Admin: 12/03/19 00:48 Dose: 75 mls/hr Lactated Ringer's (Ringers, Lactated) 2,250 mls @ 999 mls/hr IV Q1H ARNULFO Stop: 12/03/19 09:30 Last Admin: 12/03/19 07:46 Dose: 999 mls/hr Pantoprazole Sodium (Protonix Iv) 40 mg IVPUSH DAILY ARNULFO Last Admin: 12/03/19 08:07 Dose: 40 mg Admin: 12/02/19 08:19 Dose: 40 mg Admin: 12/01/19 21:33 Dose: 40 mg Sodium Chloride (Saline Flush) 10 ml FLUSH ASDIRECTED PRN PRN Reason: Keep Vein Open Last Admin: 12/01/19 12:46 Dose: 10 ml Labs: Laboratory Tests 12/01/19 12/01/19 12/01/19 Range/Units 12:29 12:35 12:35 WBC 7.80 (4.23-9.07) K/mm3 RBC 5.21 (4.63-6.08) M/mm3 Hgb 14.8 (13.7-17.5) gm/dl Hct 44.4 (40.1-51.0) % MCV 85.2 (79.0-92.2) fl MCH 28.4 (25.7-32.2) pg MCHC 33.3 (32.2-35.5) g/dl RDW Std Deviation 43.6 (35.1-43.9) fL Plt Count 287 (163-337) K/mm3 MPV 10.0 (9.4-12.3) fl Neut % (Auto) 55.9 (34.0-67.9) % Lymph % (Auto) 31.0 (21.8-53.1) % Ness % (Auto) 7.9 (5.3-12.2) % Eos % (Auto) 4.2 (0.8-7.0) Baso % (Auto) 0.5 (0.1-1.2) % Neut # (Auto) 4.35 (1.78-5.38) K/mm3 Lymph # (Auto) 2.42 (1.32-3.57) K/mm3 Ness # (Auto) 0.62 (0.30-0.82) K/mm3 Eos # (Auto) 0.33 (0.04-0.54) K/mm3 Baso # (Auto) 0.04 (0.01-0.08) K/mm3 Puncture Site ABG pH (7.35-7.45) ABG pCO2 (35.0-45.0) mmHg ABG pO2 (80.0-100.0) mmHg ABG HCO3 (22.0-26.0) meq/L ABG O2 Saturation (96.0-97.0) % ABG Base Excess (-2-2.0) A-a Gradient mmHg O2 Delivery Device FiO2 (21.00-100.00) % Tidal Volume cc PEEP cmH20 Sodium 138 (136-145) mEq/L Potassium 3.5 (3.5-5.1) mEq/L Chloride 102 (98-107) mEq/L Carbon Dioxide 20 L (21-32) mEq/L Anion Gap 19.5 H (5-15) BUN 18 (7-18) mg/dL Creatinine 1.3 (0.7-1.3) mg/dL Est Cr Clr Drug Dosing 85.28 mL/min Estimated GFR (MDRD) > 60 (>60) mL/min BUN/Creatinine Ratio 13.8 L (14-18) Glucose 108 H (74-106) mg/dL Calcium 8.8 (8.5-10.1) mg/dL Total Bilirubin 0.3 (0.2-1.0) mg/dL AST 24 (15-37) U/L ALT 58 (16-63) U/L Alkaline Phosphatase 62 (46-116) U/L Total Protein 7.6 (6.4-8.2) g/dl Albumin 3.9 (3.4-5.0) g/dl Globulin 3.7 gm/dL Albumin/Globulin Ratio 1.1 (1-2) Salicylates (2.8-20) mg/dL Urine Opiates Screen Negative (NEFTDA=943) Ur Buprenorphine Scrn Negative (CUTOFF=10) Ur Oxycodone Screen Negative (MBJ1SW=342) Urine Methadone Screen Negative (CLT2WC=136) Ur Propoxyphene Screen Negative (AKXLFJ=176) Acetaminophen 0 L (10-30) ug/mL Ur Barbiturates Screen Negative (LVRCOP=996) Ur Tricyclics Screen Negative (YGSVFG=298) Ur Phencyclidine Scrn Negative (CUTOFF=25) Ur Amphetamine Screen Negative (MDIBLL=378) U Methamphetamines Scrn Negative (DRUGJU=142) U Benzodiazepines Scrn Negative (TSBLVQ=012) U Cocaine Metab Screen Negative (QRTDEI=201) U Marijuana (THC) Screen Negative (CUTOFF=50) Ethyl Alcohol 0.00 (0.00) gm% 12/01/19 12/01/19 Range/Units 12:35 13:20 WBC (4.23-9.07) K/mm3 RBC (4.63-6.08) M/mm3 Hgb (13.7-17.5) gm/dl Hct (40.1-51.0) % MCV (79.0-92.2) fl MCH (25.7-32.2) pg MCHC (32.2-35.5) g/dl RDW Std Deviation (35.1-43.9) fL Plt Count (163-337) K/mm3 MPV (9.4-12.3) fl Neut % (Auto) (34.0-67.9) % Lymph % (Auto) (21.8-53.1) % Ness % (Auto) (5.3-12.2) % Eos % (Auto) (0.8-7.0) Baso % (Auto) (0.1-1.2) % Neut # (Auto) (1.78-5.38) K/mm3 Lymph # (Auto) (1.32-3.57) K/mm3 Ness # (Auto) (0.30-0.82) K/mm3 Eos # (Auto) (0.04-0.54) K/mm3 Baso # (Auto) (0.01-0.08) K/mm3 Puncture Site Rt radial ABG pH 7.31 L (7.35-7.45) ABG pCO2 41.2 (35.0-45.0) mmHg ABG pO2 264.0 H* (80.0-100.0) mmHg ABG HCO3 20.3 L (22.0-26.0) meq/L ABG O2 Saturation 99.5 H (96.0-97.0) % ABG Base Excess -5.1 L (-2-2.0) A-a Gradient 221 mmHg O2 Delivery Device Ventilator FiO2 75.00 (21.00-100.00) % Tidal Volume 450.0 cc PEEP 8.0 cmH20 Sodium (136-145) mEq/L Potassium (3.5-5.1) mEq/L Chloride (98-107) mEq/L Carbon Dioxide (21-32) mEq/L Anion Gap (5-15) BUN (7-18) mg/dL Creatinine (0.7-1.3) mg/dL Est Cr Clr Drug Dosing mL/min Estimated GFR (MDRD) (>60) mL/min BUN/Creatinine Ratio (14-18) Glucose (74-106) mg/dL Calcium (8.5-10.1) mg/dL Total Bilirubin (0.2-1.0) mg/dL AST (15-37) U/L ALT (16-63) U/L Alkaline Phosphatase (46-116) U/L Total Protein (6.4-8.2) g/dl Albumin (3.4-5.0) g/dl Globulin gm/dL Albumin/Globulin Ratio (1-2) Salicylates 1.0 L (2.8-20) mg/dL Urine Opiates Screen (PNJHRH=868) Ur Buprenorphine Scrn (CUTOFF=10) Ur Oxycodone Screen (BZM9QN=851) Urine Methadone Screen (MZE4ZB=303) Ur Propoxyphene Screen (HKLEFD=685) Acetaminophen (10-30) ug/mL Ur Barbiturates Screen (UVZIKQ=296) Ur Tricyclics Screen (PZSIUF=874) Ur Phencyclidine Scrn (CUTOFF=25) Ur Amphetamine Screen (GJHKJE=536) U Methamphetamines Scrn (PMHORD=618) U Benzodiazepines Scrn (WDRJGX=589) U Cocaine Metab Screen (JPYUXI=104) U Marijuana (THC) Screen (CUTOFF=50) Ethyl Alcohol (0.00) gm% Meds: Medications Generic Name Dose Route Start Last Admin Trade Name Freq PRN Reason Stop Dose Admin Enoxaparin Sodium 40 mg 12/01/19 13:30 12/03/19 01:18 Lovenox SUBCUT 40 mg Q12H ARNULFO Administration Midazolam HCl 50 mg/ Sodium 50 mls @ 0.5 mls/hr 12/01/19 13:30 12/03/19 04:04 Chloride IV 12.5 mg/hr TITRATE ARNULFO 12.5 mls/hr Administration Protocol 0.5 MG/HR Propofol 100 mls @ 4.355 mls/hr 12/01/19 13:30 12/03/19 07:49 Diprivan 100 Ml IV 37 mcg/kg/min TITRATE ARNULFO 32.223 mls/hr Administration Protocol 5 MCG/KG/MIN Norepinephrine Bitartrate 16 250 mls @ 18.75 mls/hr 12/02/19 14:00 12/03/19 04:31 mg/ Dextrose/Water IV 12 mcg/min TITRATE ARNULFO 11.25 mls/hr Titration Protocol 20 MCG/MIN Dextrose/Sodium Chloride 1,000 mls @ 75 mls/hr 12/03/19 00:45 12/03/19 02:28 Dextrose 5%-Normal Saline IV 11 mls/hr ASDIRECTED ARNULFO Infusion Lactated Ringer's 2,250 mls @ 999 mls/hr 12/03/19 07:06 12/03/19 07:46 Ringers, Lactated IV 12/03/19 09:30 999 mls/hr Q1H ARNULFO Administration Pantoprazole Sodium 40 mg 12/01/19 21:00 12/03/19 08:07 Protonix Iv IVPUSH 40 mg DAILY ARNULFO Administration Sodium Chloride 10 ml 12/01/19 12:29 12/01/19 12:46 Saline Flush FLUSH 10 ml ASDIRECTED PRN Administration Keep Vein Open Discontinued Medications Generic Name Dose Route Start Last Admin Trade Name Freq PRN Reason Stop Dose Admin Sodium Chloride 1,000 mls @ 999 mls/hr 12/01/19 12:30 12/01/19 12:35 Normal Saline IV 999 mls/hr ONETIME ARNULFO Administration Propofol Confirm 12/01/19 13:10 12/01/19 14:19 Diprivan 100 Ml Administered 12/01/19 13:11 Not Given Dose 100 mls @ as directed .ROUTE .STK-MED ONE Lactated Ringer's 1,000 mls @ 150 mls/hr 12/01/19 13:30 12/02/19 23:03 Ringers, Lactated IV 150 mls/hr ASDIRECTED ARNULFO Administration Sodium Chloride 1,000 mls @ 999 mls/hr 12/01/19 16:05 12/01/19 16:12 Normal Saline IV 12/01/19 17:05 999 mls/hr ONETIME ONE Administration Norepinephrine Bitartrate 4 mg 250 mls @ 7.5 mls/hr 12/01/19 16:30 12/02/19 13:35 / Dextrose/Water IV 12/02/19 15:00 20 mcg/min TITRATE ARNULFO 75 mls/hr Titration Protocol 2 MCG/MIN Magnesium Sulfate 4 gm/ Premix 100 mls @ 25 mls/hr 12/01/19 19:24 12/01/19 19 :57 IV 12/01/19 19:25 25 mls/hr ONETIME ONE Administration - Re-Assessments/Exams Free Text/Narrative Re-Assessment/Exam: 12/03/19 08:15 We did check with poison control. They states he does have increased seizure risk secondary to the buprprion and also airway, breathing, aspiration concerns secondary to that and sedative effect of trazadone. For those reasons they do recomend prophylactic intubation to protect and maintain airway. I did discuss and relay this information to Dr Alarcon, Hospitalist. She agrees, proceded to intubate patient with Nurse [employer] Operations Engineer present, admitted to our ICU. Departure - Departure Time of Disposition: 13:00 Disposition: Admitted As Inpatient 65 Condition: Serious Clinical Impression: Drug overdose, multiple drugs Qualifiers: Encounter type: initial encounter Injury intent: intentional self-harm Qualified Code(s): T50.912A - Poisoning by multiple unspecified drugs, medicaments and biological substances, intentional self-harm, initial encounter - Discharge Information Sepsis Event Note - Focused Exam Date Exam was Performed: 12/03/19 Time Exam was Performed: 08:20 ED Communication - Discussed Case With (1) Discussed Case With (1): Admitting Provider (Dr Aguila, decision to admit at about 13:00)
[2019-12-01] MEDS ORDERED: Etomidate 2 MG/ML 20 ML SDV IVPUSH ONE (13:00)
[2019-12-01] MEDS ORDERED: Midazolam 1 MG/ML 5 ML SDV ONE ×2 (13:00)
[2019-12-01] MEDS ORDERED: Succinylcholine 200 MG/10 ML MDV ONE (13:00)
[2019-12-01 13:07] LABS: ACETAMINOPHEN 0 ug/mL (10-30)
[2019-12-01] MEDS ORDERED: propofoL 100 ML ONE (13:10)
[2019-12-01] MEDS: propofoL 100 ML IV SCH ×4 (13:20→23:40)
[2019-12-01] MEDS: Midazolam 50 MG in Sodium Chloride 0.9% 40 ML IV SCH ×5 (13:27→23:15)
--- NOTE | 2019-12-01 14:34 | CR ---
Chest: Portable supine view of the chest was obtained. Comparison: Prior chest x-ray of 05/12/19. Heart size and mediastinum are normal. Tip of endotracheal tube lies at the upper level of the clavicles. This tube lies approximately 7.8 cm from the kia. Nasogastric tube is seen with tip coiled within the stomach. Lungs are clear with no acute parenchymal change. Bony structures are grossly intact. Impression: 1. Tip of endotracheal tube at the upper level of the clavicles and approximately 7.8 cm from the kia. 2. Satisfactory position of nasogastric tube. 3. Nothing acute is otherwise seen on portable chest x-ray. Diagnostic code #3 Study was dictated in [place] [employer] Time
[2019-12-01] MEDS: Lactated Ringers 1,000 ML IV SCH ×2 (14:54→20:14)
--- NOTE | 2019-12-01 15:24 | PCM.HP.2 ---
H&P History of Present Illness - General Date of Service: 12/01/19 Admit Problem/Dx: Admission Diagnosis/Problem Admission Diagnosis/Problem Suicide attempt by drug ingestion - History of Present Illness Initial Comments - Free Text/Narative: This is a 33 year old male with extensive psychiatric past medical history who is brought to the ED by after suicide attempt with medication overdose. - Related Data Allergies/Adverse Reactions: Allergies Allergy/AdvReac Type Severity Reaction Status Date / Time cefaclor [From Ceclor] Allergy Rash Verified 12/01/19 15:26 Penicillins Allergy Rash Verified 12/01/19 15:26 Home Medications: Home Meds Levothyroxine 150 mcg PO ACBREAKFAST 10/10/19 [History] Venlafaxine [Effexor XR] 225 mg PO DAILY 10/10/19 [History] lisinopriL [Lisinopril] 40 mg PO DAILY 10/10/19 [History] buPROPion [Wellbutrin SR] 150 mg PO DAILY 11/10/19 [History] OLANZapine [ZyPREXA] 2 mg PO BID 11/26/19 [History] clonazePAM [Clonazepam] 1 mg PO BID 11/26/19 [History] traZODone HCl [Trazodone HCl] 150 mg PO BEDTIME 12/01/19 [History] Past Medical History HEENT History: Reports: Impaired Vision Other HEENT History: wears eyeglasses Cardiovascular History: Reports: Hypertension Respiratory History: Reports: None Gastrointestinal History: Reports: Gastritis Genitourinary History: Reports: None Musculoskeletal History: Reports: Fibromyalgia Neurological History: Reports: Headaches, Chronic Psychiatric History: Reports: Anxiety, Depression, Psych Hospitalization(s), Schizophrenia, Suicide Attempt Endocrine/Metabolic History: Reports: Hypothyroidism, Obesity/BMI 30+ Hematologic History: Reports: None Immunologic History: Reports: None Oncologic (Cancer) History: Reports: None Dermatologic History: Reports: Other (See Below) Other Dermatologic History: yeast infections - Infectious Disease History Infectious Disease History: Reports: Chicken Pox - Past Surgical History Head Surgeries/Procedures: Reports: None HEENT Surgical History: Reports: Myringotomy w Tube(s), Naso-Sinus Surgery, Tonsillectomy Male Surgical History: Reports: None Social & Family History - Family History Family Medical History: Noncontributory Cardiac: Reports: CAD Oncologic: Reports: Lung, Ovarian, Other (See Below) Other Oncologic Family History: tongue - Tobacco Use Smoking Status *Q: Never Smoker - Caffeine Use Caffeine Use: Reports: Coffee, Energy Drinks, Soda, Tea Other Caffeine Use: aspercane thru diet soda Caffeine Use Comment: unable to obtain - Recreational Drug Use Recreational Drug Use: No - Living Situation & Occupation Living situation: Reports: , with Spouse, with Family (1 child) Occupation: Unemployed H&P Review of Systems - Review of Systems: Review Of Systems: Unable To Obtain Reason Not Obtained: patient sedated Exam - Exam Exam: See Below - Vital Signs Vital Signs: Last Vital Signs Temp 97.2 F 12/01/19 14:45 Pulse 122 H 12/01/19 12:30 Resp 16 12/01/19 14:45 BP 156/97 H 12/01/19 14:45 Pulse Ox 98 12/01/19 14:47 Weight: 147.916 kg - Exam Quality Assessment: Supplemental Oxygen, Other (Exam very limited due to body habitus) General: Moderate Distress, Lethargic HEENT: Conjunctiva Clear, Mucosa Moist & [place], Pupils Equal, Pupils Reactive Neck: Supple, Full Range of Motion. No: Lymphadenopathy Lungs: Decreased Breath Sounds. No: Crackles, Rales, Rhonchi, Rub, Wheezing Cardiovascular: Regular Rhythm, Tachycardia. No: Systolic Murmur, Diastolic Murmur, Rubs, Gallop/S3, Gallop/S4 GI/Abdominal Exam: Distended. No: Guarding, Rigid, Rebound, Tender (Male) Exam: Normal Inspection Extremities: Normal Inspection, Pedal Edema, Slow Capillary Refill Peripheral Pulses: 2+: Radial (L), Radial (R) Skin: Warm, Dry - Patient Data Result Diagrams: 12/03/19 04:30 12/03/19 04:30 EKG INTERPRETATION EKG Date: 12/01/19 Rhythm: NSR P-Wave: Present QRS: Normal ST-T: Normal QT: Prolonged Sepsis Event Note - Evaluation Sepsis Screening Result: No Definite Risk - Focused Exam Vital Signs: Vital Signs Temp Pulse Resp BP Pulse Ox 12/01/19 14:47 98 12/01/19 14:45 97.2 F 16 156/97 H 98 12/01/19 12:30 97.9 F 122 H 32 H 111/78 89 L Date Exam was Performed: 12/03/19 Time Exam was Performed: 08:22 - Problem List (1) Suicide attempt by multiple drug overdose SNOMED Code(s): 21144252 ICD Code: T50.912A - POISN BY MULTIPLE UNSP DRUG/MEDS/BIOL SUBST, SELF-HARM, INIT Status: Acute Current Visit: Yes (2) Anxiety SNOMED Code(s): 58312527 ICD Code: F41.9 - ANXIETY DISORDER, UNSPECIFIED Status: Acute Current Visit: Yes (3) Depression SNOMED Code(s): 02671378 ICD Code: F32.9 - MAJOR DEPRESSIVE DISORDER, SINGLE EPISODE, UNSPECIFIED Status: Chronic Current Visit: No Qualifiers: Depression Type: other depression Qualified Code(s): F32.89 - Other specified depressive episodes (4) Hypothyroidism SNOMED Code(s): 03060622 ICD Code: E03.9 - HYPOTHYROIDISM, UNSPECIFIED Status: Chronic Current Visit: No Qualifiers: Hypothyroidism type: unspecified Qualified Code(s): E03.9 - Hypothyroidism , unspecified (5) Schizophrenia SNOMED Code(s): 12224976 ICD Code: F20.9 - SCHIZOPHRENIA, UNSPECIFIED Status: Chronic Current Visit: No Qualifiers: Schizophrenia type: paranoid schizophrenia Qualified Code(s): F20.0 - Paranoid schizophrenia (6) History of attempted suicide SNOMED Code(s): 236976928, 483642710 ICD Code: Z91.5 - PERSONAL HISTORY OF SELF-HARM Status: Acute Current Visit: Yes (7) History of admission to inpatient psychiatry department SNOMED Code(s): 441624997 ICD Code: Z86.59 - PERSONAL HISTORY OF OTHER MENTAL AND BEHAVIORAL DISORDERS Status: Acute Current Visit: Yes (8) Auditory hallucinations SNOMED Code(s): 11122266 ICD Code: R44.0 - AUDITORY HALLUCINATIONS Status: Acute Current Visit: No (9) Suicidal thoughts SNOMED Code(s): 8405687 ICD Code: R45.851 - SUICIDAL IDEATIONS Status: Acute Current Visit: No (10) Hypertension SNOMED Code(s): 27181535 ICD Code: I10 - ESSENTIAL (PRIMARY) HYPERTENSION Status: Acute Current Visit: Yes (11) Hypoalbuminemia SNOMED Code(s): 063176722 ICD Code: E88.09 - OTH DISORDERS OF PLASMA-PROTEIN METABOLISM, NEC Status: Acute Current Visit: Yes (12) Morbid obesity SNOMED Code(s): 917065649 ICD Code: E66.01 - MORBID (SEVERE) OBESITY DUE TO EXCESS CALORIES Status: Acute Current Visit: Yes (13) Smoker SNOMED Code(s): 39653593 ICD Code: F17.200 - NICOTINE DEPENDENCE, UNSPECIFIED, UNCOMPLICATED Status : Acute Current Visit: Yes (14) Chronic headache SNOMED Code(s): 031098578 ICD Code: R51 - HEADACHE Status: Acute Current Visit: Yes Problem List Initiated/Reviewed/Updated: Yes Assessment/Plan Comment:: Suicide attempt by multiple drug overdose Anxiety/ Depression/ Schizophrenia Auditory hallucinations History of attempted suicide, multiple History of admission to inpatient psychiatry department, recently discharged Polysubstance abuse Patient ingested olanzapine, trazodone and bupropion Poison control contacted and recommended intubation with sedation with benzodiazepines and propofol, avoid barbiturates At least 5 prior suicide attempts are documented on patient's chart Abuse of amphetamines, THC, BDZ and opiates PLAN - IVF with LR - Follow up with poison control - Monitor electrolytes - Seizure precautions - Sedation with Versed and propofol - Monitor vital signs - UDS - NPO for now Hypertension BP on admission 111/78 Home management with lisinopril PLAN - Hold home med for now Chronic headache Hypothyroidism No known acute issues or recent adjustment of his medications PLAN - TSH level - Hold home levothyroxine for now PROPHYLAXIS DVT- Lovenox GI- pantoprazole CODE STATUS: FULL CODE DISPOSITION: Patient will be admitted to ICU with propofol and versed for sedation. Follow up with poison control. Psychiatry consult once appropriate. - Mortality Measure Prognosis:: Poor
[2019-12-01] MEDS: Enoxaparin 40 MG/0.4 ML Syringe SUBCUT SCH (15:31)
[2019-12-01] MEDS ORDERED: Sodium Chloride 0.9% 1,000 ML IV ONE (16:05)
[2019-12-01] MEDS: Norepinephrine 4 MG in Dextrose 5% in Water 246 ML IV SCH ×4 (16:43→21:00)
--- NOTE | 2019-12-01 17:17 | PCM.PRNOTE ---
- Free Text/Narrative Note: Central Venous Catheter Placement Date: 12/01/19 Indication: Hemodynamic monitoring + caustic drug use Attending: Ambika Aguila MD A time-out was completed verifying correct patient, procedure, site, positioning , and special equipment if applicable. The patient was placed in a dependent position appropriate for central line placement based on the vein to be cannulated. The patients right neck was prepped and draped in sterile fashion. 1% Lidocaine was used to anesthetize the surrounding skin area. A triple lumen 7-[place] Cord[place] catheter was introduced into the the internal jugular using the Seldinger technique and under ultrasound guidance. The catheter was threaded smoothly over the guide wire and appropriate blood return was obtained. Each lumen of the catheter was evacuated of air and flushed with sterile saline. The catheter was then sutured in place to the skin and a sterile dressing applied. Perfusion to the extremity distal to the point of catheter insertion was checked and found to be adequate. CXR was performed to confirm placement Estimated Blood Loss: 5mL The patient tolerated the procedure well and there were no complications.
--- NOTE | 2019-12-01 17:17 | PCM.PRNOTE ---
- Free Text/Narrative Note: Endotracheal Intubation Date: 12/01/2019 Time: 15:04 Indication: Airway protection Attending: Ambika Aguila MD A time-out was completed verifying correct patient, procedure, site, positioning , and special equipment if applicable. The patient was placed in a flat position. Sedation was obtained using Etomidate 20mg, and additionally with Succinylcholine. The patient was easily ventilated using an ambu bag. The MAC 4 BLADE was used and inserted into the oropharynx at which time there was a Grade 1 view of the vocal cords. A 7.5-mohawk endotracheal tube was inserted and visualized going through the vocal cords. The stylette was removed. Colorimetric change was visualized on the CO2 meter. Breath sounds were heard in both lung perry equally. The endotracheal tube was placed at 23 cm, measured at the lip. Portable CXR was performed to confirm placement. Estimated Blood Loss: none The patient tolerated the procedure well and there were no complications
--- NOTE | 2019-12-01 17:52 | CR ---
Chest: Portable view of the chest is obtained. Comparison: Prior chest x-ray of 12/01/15. Tip of endotracheal tube lies at the upper level of clavicles. Nasogastric tube is seen coiled within the stomach. Slight atelectasis noted within both lungs. Lungs otherwise are clear. Heart size and mediastinum are normal. Right jugular line is seen. Tip lies near the right atrial and superior vena cava junction. Impression: 1. Tubes and catheters as noted above. 2. Mild scattered atelectasis within both lungs. Diagnostic code #3 Study was dictated in [place] Standard Time Is
[2019-12-01] MEDS ORDERED: Magnesium Sulfate/Water 4 GM in Premix Bag 1 BAG IV ONE (19:24)
[2019-12-01] MEDS: Pantoprazole 40 MG Vial IVPUSH SCH (21:33)
[2019-12-02] MEDS: Norepinephrine 4 MG in Dextrose 5% in Water 246 ML IV SCH ×8 (00:28→10:43)
[2019-12-02] MEDS: Enoxaparin 40 MG/0.4 ML Syringe SUBCUT SCH ×2 (01:13→12:36)
[2019-12-02] MEDS: Lactated Ringers 1,000 ML IV SCH ×4 (02:50→23:03)
[2019-12-02] MEDS: propofoL 100 ML IV SCH ×7 (02:59→22:34)
[2019-12-02] MEDS: Midazolam 50 MG in Sodium Chloride 0.9% 40 ML IV SCH ×5 (03:05→19:34)
[2019-12-02] MEDS: Pantoprazole 40 MG Vial IVPUSH SCH (08:19)
[2019-12-02] MEDS: Norepinephrine 16 MG in Dextrose 5% in Water 234 ML IV SCH ×2 (14:21)
[2019-12-03] MEDS ORDERED: Dextrose 5%-0.9% NaCl 1,000 ML IV SCH (00:45)
[2019-12-03] MEDS: Enoxaparin 40 MG/0.4 ML Syringe SUBCUT SCH ×2 (01:18→13:05)
[2019-12-03] MEDS: propofoL 100 ML IV SCH ×8 (01:48→23:43)
[2019-12-03] MEDS: Midazolam 50 MG in Sodium Chloride 0.9% 40 ML IV SCH ×7 (04:04→20:11)
--- NOTE | 2019-12-03 06:31 | CR ---
Chest: Portable semi-upright view of the chest was obtained. Comparison: Prior chest x-ray of 12/01/19. Endotracheal tube is seen with tip lying at the upper level of the clavicles. Right jugular line is seen with tip lying at the level of the superior vena cava and right atrial junction. Nasogastric tube is seen. Tip is coiled within the stomach. Lungs show no acute parenchymal change. Heart size and mediastinum are stable. Bony structures are grossly intact. Impression: 1. Tip of endotracheal tube at the upper level of the clavicles. This is slightly high in position and tube could be advanced by 2 or 3 cm for optimal position. 2. Satisfactory position of right jugular line and nasogastric tube. 3. Nothing acute is otherwise seen on portable chest x-ray. Diagnostic code #3 This report was dictated in [place] Standard Time I agree with preliminary report from [facility], finalized on 12/02/19, 9:39 PM Central Time
--- NOTE | 2019-12-03 07:17 | PCM.PN ---
- General Info Date of Service: 12/02/19 Subjective Update: OVERNIGHT EVENTS AND INTERVAL CHANGES Drips: - Propofol - Versed - Norepinephrine - LR VS trend: - Tmax: 99 - HR: 85-99 - BP: 83-103/40-52 Urine output: 5,375 NO BM Glucose trend: 102-108 Mechanical Ventilation: Vt 450 RR 16x' PEEP 8 PIP 22 Pmean 12 Vte 11.5 - Patient Data Vitals - Most Recent: Last Vital Signs Temp 100.2 F 12/03/19 06:28 Pulse 99 12/03/19 07:01 Resp 19 12/03/19 07:01 BP 124/66 12/03/19 07:00 Pulse Ox 96 12/03/19 07:01 Weight - Most Recent: 152.407 kg - Exam Quality Assessment: Supplemental Oxygen, Central Line/PICC, DVT Prophylaxis General: Sedated HEENT: Pupils Equal, Pupils Reactive, EOMI. No: Mucous Membr. Moist/[place] Lungs: Decreased Breath Sounds, Crackles, Rales. No: Rhonchi, Wheezing Cardiovascular: Regular Rate, Regular Rhythm. No: Murmurs, Gallops, Rubs GI/Abdominal Exam: Soft, Distended. No: Normal Bowel Sounds Extremities: Normal Inspection, Normal Capillary Refill, Pedal Edema Sepsis Event Note - Evaluation Sepsis Screening Result: No Definite Risk - Focused Exam Vital Signs: Vital Signs Temp Pulse Resp BP BP BP Pulse Ox 12/03/19 07:01 99 19 96 12/03/19 07:00 101 H 22 H 124/66 96 12/03/19 06:59 100 22 H 96 12/03/19 06:46 99 23 H 96 12/03/19 06:45 100 22 H 119/63 97 12/03/19 06:44 100 21 H 97 12/03/19 06:31 101 H 18 96 12/03/19 06:30 101 H 22 H 113/56 L 96 12/03/19 06:29 102 H 25 H 96 12/03/19 06:28 100.2 F 12/03/19 06:16 103 H 24 H 96 12/03/19 06:15 104 H 23 H 123/52 L 97 12/03/19 06:14 101 H 22 H 97 12/03/19 06:01 102 H 23 H 97 12/03/19 06:00 100 F 104 H 22 H 120/57 L 120/57 L 97 12/03/19 05:59 103 H 23 H 97 12/03/19 05:46 103 H 24 H 97 12/03/19 05:45 103 H 24 H 114/56 L 97 12/03/19 05:44 103 H 22 H 97 12/03/19 05:35 22 H 12/03/19 05:31 105 H 23 H 97 12/03/19 05:30 104 H 22 H 108/53 L 96 12/03/19 05:29 103 H 23 H 97 12/03/19 05:16 105 H 26 H 97 12/03/19 05:15 106 H 26 H 117/59 L 97 12/03/19 05:14 105 H 21 H 97 12/03/19 05:01 104 H 24 H 96 12/03/19 05:00 99.9 F 103 H 24 H 107/59 L 108/53 L 97 12/03/19 04:59 103 H 23 H 96 12/03/19 04:56 100.3 F 12/03/19 04:46 102 H 23 H 96 12/03/19 04:45 103 H 25 H 109/53 L 96 12/03/19 04:44 101 H 22 H 96 12/03/19 04:31 103 H 25 H 96 12/03/19 04:30 103 H 22 H 100/53 L 96 12/03/19 04:29 104 H 25 H 96 12/03/19 04:16 104 H 23 H 96 12/03/19 04:15 103 H 23 H 102/49 L 96 12/03/19 04:14 104 H 23 H 96 12/03/19 04:01 103 H 24 H 96 12/03/19 04:00 101.1 F H 104 H 24 H 112/57 L 112/57 L 97 12/03/19 03:59 103 H 25 H 96 12/03/19 03:53 27 H 12/03/19 03:46 104 H 25 H 96 12/03/19 03:45 103 H 24 H 108/55 L 96 12/03/19 03:44 105 H 24 H 96 12/03/19 03:31 106 H 24 H 96 12/03/19 03:30 104 H 23 H 102/54 L 96 12/03/19 03:29 107 H 24 H 96 12/03/19 03:16 102 H 21 H 96 12/03/19 03:15 103 H 21 H 110/60 96 12/03/19 03:14 103 H 25 H 95 12/03/19 03:01 104 H 26 H 96 12/03/19 03:00 104 H 23 H 109/57 L 96 12/03/19 02:59 103 H 24 H 96 12/03/19 02:46 103 H 21 H 95 12/03/19 02:45 104 H 26 H 104/57 L 96 12/03/19 02:44 104 H 25 H 95 12/03/19 02:31 106 H 27 H 94 L 12/03/19 02:30 106 H 18 106/56 L 94 L 12/03/19 02:29 107 H 27 H 94 L 12/03/19 02:22 26 H 12/03/19 02:16 105 H 25 H 93 L 12/03/19 02:15 108 H 24 H 107/55 L 94 L 12/03/19 02:14 107 H 25 H 93 L 12/03/19 02:01 105 H 26 H 94 L 12/03/19 02:00 98.3 F 106 H 26 H 102/58 L 102/58 L 94 L 12/03/19 01:59 106 H 24 H 93 L 12/03/19 01:46 107 H 21 H 93 L 12/03/19 01:45 106 H 26 H 104/50 L 93 L 12/03/19 01:44 104 H 23 H 93 L 12/03/19 01:31 105 H 19 93 L 12/03/19 01:30 105 H 25 H 115/55 L 93 L 12/03/19 01:16 106 H 22 H 93 L 12/03/19 01:15 103 H 27 H 109/55 L 93 L 12/03/19 01:14 103 H 22 H 93 L 12/03/19 01:01 105 H 23 H 93 L 12/03/19 01:00 98.3 F 103 H 21 H 112/57 L 112/57 L 93 L 12/03/19 00:59 104 H 27 H 93 L 12/03/19 00:46 103 H 23 H 106/53 L 94 L 12/03/19 00:45 24 H 12/03/19 00:31 101 H 19 118/58 L 93 L 12/03/19 00:30 104 H 23 H 93 L 12/03/19 00:16 101 H 22 H 116/63 93 L 12/03/19 00:15 25 H 12/03/19 00:01 99 19 118/62 94 L 12/03/19 00:00 22 H 12/02/19 23:56 97.4 F 22 H 120/70 94 L 12/02/19 23:46 99 21 H 120/70 95 12/02/19 23:45 20 12/02/19 23:34 97.4 F 12/02/19 23:31 99 22 H 114/67 94 L 12/02/19 23:30 20 12/02/19 23:16 99 24 H 121/64 96 12/02/19 23:15 18 12/02/19 23:02 96 21 H 95 12/02/19 23:01 96 21 H 113/65 96 12/02/19 23:00 97 21 H 113/65 98 12/02/19 22:46 96 22 H 115/59 L 96 12/02/19 22:45 96 19 97 12/02/19 22:36 18 12/02/19 22:31 94 18 117/67 97 12/02/19 22:30 94 17 97 12/02/19 22:16 94 18 118/67 98 12/02/19 22:15 95 20 97 12/02/19 22:01 96 19 118/64 97 12/02/19 22:00 97.3 F 96 21 H 118/67 97 12/02/19 21:46 96 21 H 119/56 L 97 12/02/19 21:45 92 19 96 12/02/19 21:31 95 21 H 113/68 97 12/02/19 21:30 95 18 98 12/02/19 21:16 96 17 119/65 97 12/02/19 21:15 94 20 97 12/02/19 21:01 92 18 121/65 98 12/02/19 21:00 92 18 121/65 98 12/02/19 20:46 92 19 115/69 98 12/02/19 20:45 91 19 98 12/02/19 20:41 19 12/02/19 20:31 92 17 121/68 98 12/02/19 20:30 91 19 98 12/02/19 20:16 89 16 126/68 99 12/02/19 20:15 90 15 100 12/02/19 20:01 89 17 120/68 99 12/02/19 20:00 97.7 F 85 16 120/68 99 12/02/19 19:46 87 23 H 128/64 99 12/02/19 19:45 89 19 99 12/02/19 19:31 87 15 122/61 99 12/02/19 19:30 85 16 99 Pulse Ox 12/03/19 07:01 12/03/19 07:00 12/03/19 06:59 12/03/19 06:46 12/03/19 06:45 12/03/19 06:44 12/03/19 06:31 12/03/19 06:30 12/03/19 06:29 12/03/19 06:28 12/03/19 06:16 12/03/19 06:15 12/03/19 06:14 12/03/19 06:01 12/03/19 06:00 12/03/19 05:59 12/03/19 05:46 12/03/19 05:45 12/03/19 05:44 12/03/19 05:35 97 12/03/19 05:31 12/03/19 05:30 12/03/19 05:29 12/03/19 05:16 12/03/19 05:15 12/03/19 05:14 12/03/19 05:01 12/03/19 05:00 12/03/19 04:59 12/03/19 04:56 12/03/19 04:46 12/03/19 04:45 12/03/19 04:44 12/03/19 04:31 12/03/19 04:30 12/03/19 04:29 12/03/19 04:16 12/03/19 04:15 12/03/19 04:14 12/03/19 04:01 12/03/19 04:00 12/03/19 03:59 12/03/19 03:53 96 12/03/19 03:46 12/03/19 03:45 12/03/19 03:44 12/03/19 03:31 12/03/19 03:30 12/03/19 03:29 12/03/19 03:16 12/03/19 03:15 12/03/19 03:14 12/03/19 03:01 12/03/19 03:00 12/03/19 02:59 12/03/19 02:46 12/03/19 02:45 12/03/19 02:44 12/03/19 02:31 12/03/19 02:30 12/03/19 02:29 12/03/19 02:22 94 L 12/03/19 02:16 12/03/19 02:15 12/03/19 02:14 12/03/19 02:01 12/03/19 02:00 12/03/19 01:59 12/03/19 01:46 12/03/19 01:45 12/03/19 01:44 12/03/19 01:31 12/03/19 01:30 12/03/19 01:16 12/03/19 01:15 12/03/19 01:14 12/03/19 01:01 12/03/19 01:00 12/03/19 00:59 12/03/19 00:46 12/03/19 00:45 12/03/19 00:31 12/03/19 00:30 95 12/03/19 00:16 12/03/19 00:15 12/03/19 00:01 12/03/19 00:00 12/02/19 23:56 12/02/19 23:46 12/02/19 23:45 12/02/19 23:34 12/02/19 23:31 12/02/19 23:30 12/02/19 23:16 12/02/19 23:15 12/02/19 23:02 12/02/19 23:01 12/02/19 23:00 12/02/19 22:46 12/02/19 22:45 12/02/19 22:36 97 12/02/19 22:31 12/02/19 22:30 12/02/19 22:16 12/02/19 22:15 12/02/19 22:01 12/02/19 22:00 12/02/19 21:46 12/02/19 21:45 12/02/19 21:31 12/02/19 21:30 12/02/19 21:16 12/02/19 21:15 12/02/19 21:01 12/02/19 21:00 12/02/19 20:46 12/02/19 20:45 12/02/19 20:41 99 12/02/19 20:31 12/02/19 20:30 12/02/19 20:16 12/02/19 20:15 12/02/19 20:01 12/02/19 20:00 12/02/19 19:46 12/02/19 19:45 12/02/19 19:31 12/02/19 19:30 Date Exam was Performed: 12/05/19 Time Exam was Performed: 08:59 - Problem List & Annotations (1) Suicide attempt by multiple drug overdose SNOMED Code(s): 58486401 Code(s): T50.912A - POISN BY MULTIPLE UNSP DRUG/MEDS/BIOL SUBST, SELF-HARM, INIT Status: Acute Current Visit: Yes (2) Anxiety SNOMED Code(s): 42035305 Code(s): F41.9 - ANXIETY DISORDER, UNSPECIFIED Status: Acute Current Visit: Yes (3) Depression SNOMED Code(s): 40823495 Code(s): F32.9 - MAJOR DEPRESSIVE DISORDER, SINGLE EPISODE, UNSPECIFIED Status: Chronic Current Visit: No Qualifiers: Depression Type: other depression Qualified Code(s): F32.89 - Other specified depressive episodes (4) Hypothyroidism SNOMED Code(s): 71938291 Code(s): E03.9 - HYPOTHYROIDISM, UNSPECIFIED Status: Chronic Current Visit: No Qualifiers: Hypothyroidism type: unspecified Qualified Code(s): E03.9 - Hypothyroidism , unspecified (5) Schizophrenia SNOMED Code(s): 92986005 Code(s): F20.9 - SCHIZOPHRENIA, UNSPECIFIED Status: Chronic Current Visit : No Qualifiers: Schizophrenia type: paranoid schizophrenia Qualified Code(s): F20.0 - Paranoid schizophrenia (6) History of attempted suicide SNOMED Code(s): 485099208, 505079561 Code(s): Z91.5 - PERSONAL HISTORY OF SELF-HARM Status: Acute Current Visit: Yes (7) History of admission to inpatient psychiatry department SNOMED Code(s): 485362383 Code(s): Z86.59 - PERSONAL HISTORY OF OTHER MENTAL AND BEHAVIORAL DISORDERS Status: Acute Current Visit: Yes (8) Auditory hallucinations SNOMED Code(s): 49587819 Code(s): R44.0 - AUDITORY HALLUCINATIONS Status: Acute Current Visit: No (9) Suicidal thoughts SNOMED Code(s): 2223320 Code(s): R45.851 - SUICIDAL IDEATIONS Status: Acute Current Visit: No - Problem List Review Problem List Initiated/Reviewed/Updated: Yes - Plan Plan:: Suicide attempt by multiple drug overdose Anxiety/ Depression/ Schizophrenia Auditory hallucinations History of attempted suicide, multiple History of admission to inpatient psychiatry department, recently discharged Polysubstance abuse Patient ingested olanzapine, trazodone and bupropion Poison control contacted and recommended intubation with sedation with benzodiazepines and propofol, avoid barbiturates At least 5 prior suicide attempts are documented on patient's chart Abuse of amphetamines, THC, BDZ and opiates As per patient was having auditory hallucinations 2 weeks prior Intubated for airway protection QTc today: 532 Propofol dropped his BP so levophed was started PLAN - IVF with LR - Follow up with poison control - Daily EKGs for QTc monitoring - Seizure precautions - Sedation with Versed and propofol - Levophed for hypotension, goal MAP >64 - Monitor vital signs - ETT care by RT - Bed rotation by nursing staff Hypotension in the setting of prior hypertension diagnosis BP trend 83-103/40-53 PLAN - Hold home med for now - Continue levophed, taper as tolerated Chronic headache Hypothyroidism No known acute issues or recent adjustment of his medications PLAN - TSH level - Hold home levothyroxine for now PROPHYLAXIS DVT- Lovenox GI- pantoprazole CODE STATUS: FULL CODE DISPOSITION: Patient will remain in ICU with propofol and versed for sedation. Follow up with poison control. Psychiatry consult once appropriate.
--- NOTE | 2019-12-03 07:17 | PCM.PN ---
- General Info Date of Service: 12/03/19 Subjective Update: OVERNIGHT EVENTS AND INTERVAL CHANGES - Hypotensive with elevated lactic acid, gave corresponding fluid bolus with minimal response, tapered Levophed Drips: - Propofol - Versed - Norepinephrine - LR VS trend: - Tmax: 101.1 - HR: 99-108 - BP: 90-120/41-70 Urine output: 3,320 NO BM Glucose trend: 141-145 WBC up from 9.01 to 12.25 QTc: 521 Mechanical Ventilation: Vt 450 RR 16x' PEEP 8 PIP 22 Pmean 12 Vte 11.5 - Patient Data Vitals - Most Recent: Last Vital Signs Temp 100.2 F 12/03/19 06:28 Pulse 99 12/03/19 07:01 Resp 19 12/03/19 07:01 BP 124/66 12/03/19 07:00 Pulse Ox 96 12/03/19 07:01 Weight - Most Recent: 152.407 kg - Exam Physical Findings Comments:: Quality Assessment: Supplemental Oxygen, Central Line/PICC, DVT Prophylaxis General: Sedated HEENT: Pupils Equal, Pupils Reactive, EOMI. No: Mucous Membr. Moist/[place] Lungs: Decreased Breath Sounds, Crackles, Rales. No: Rhonchi, Wheezing Cardiovascular: Regular Rate, Regular Rhythm. No: Murmurs, Gallops, Rubs GI/Abdominal Exam: Soft, Distended. No: Normal Bowel Sounds Extremities: Normal Inspection, Normal Capillary Refill, Pedal Edema Sepsis Event Note - Evaluation Sepsis Screening Result: No Definite Risk - Focused Exam Vital Signs: Vital Signs Temp Pulse Resp BP BP BP Pulse Ox 12/03/19 07:01 99 19 96 12/03/19 07:00 101 H 22 H 124/66 96 12/03/19 06:59 100 22 H 96 12/03/19 06:46 99 23 H 96 12/03/19 06:45 100 22 H 119/63 97 12/03/19 06:44 100 21 H 97 12/03/19 06:31 101 H 18 96 12/03/19 06:30 101 H 22 H 113/56 L 96 12/03/19 06:29 102 H 25 H 96 12/03/19 06:28 100.2 F 12/03/19 06:16 103 H 24 H 96 12/03/19 06:15 104 H 23 H 123/52 L 97 12/03/19 06:14 101 H 22 H 97 12/03/19 06:01 102 H 23 H 97 12/03/19 06:00 100 F 104 H 22 H 120/57 L 120/57 L 97 12/03/19 05:59 103 H 23 H 97 12/03/19 05:46 103 H 24 H 97 12/03/19 05:45 103 H 24 H 114/56 L 97 12/03/19 05:44 103 H 22 H 97 12/03/19 05:35 22 H 12/03/19 05:31 105 H 23 H 97 12/03/19 05:30 104 H 22 H 108/53 L 96 12/03/19 05:29 103 H 23 H 97 12/03/19 05:16 105 H 26 H 97 12/03/19 05:15 106 H 26 H 117/59 L 97 12/03/19 05:14 105 H 21 H 97 12/03/19 05:01 104 H 24 H 96 12/03/19 05:00 99.9 F 103 H 24 H 107/59 L 108/53 L 97 12/03/19 04:59 103 H 23 H 96 12/03/19 04:56 100.3 F 12/03/19 04:46 102 H 23 H 96 12/03/19 04:45 103 H 25 H 109/53 L 96 12/03/19 04:44 101 H 22 H 96 12/03/19 04:31 103 H 25 H 96 12/03/19 04:30 103 H 22 H 100/53 L 96 12/03/19 04:29 104 H 25 H 96 12/03/19 04:16 104 H 23 H 96 12/03/19 04:15 103 H 23 H 102/49 L 96 12/03/19 04:14 104 H 23 H 96 12/03/19 04:01 103 H 24 H 96 12/03/19 04:00 101.1 F H 104 H 24 H 112/57 L 112/57 L 97 12/03/19 03:59 103 H 25 H 96 12/03/19 03:53 27 H 12/03/19 03:46 104 H 25 H 96 12/03/19 03:45 103 H 24 H 108/55 L 96 12/03/19 03:44 105 H 24 H 96 12/03/19 03:31 106 H 24 H 96 12/03/19 03:30 104 H 23 H 102/54 L 96 12/03/19 03:29 107 H 24 H 96 12/03/19 03:16 102 H 21 H 96 12/03/19 03:15 103 H 21 H 110/60 96 12/03/19 03:14 103 H 25 H 95 12/03/19 03:01 104 H 26 H 96 12/03/19 03:00 104 H 23 H 109/57 L 96 12/03/19 02:59 103 H 24 H 96 12/03/19 02:46 103 H 21 H 95 12/03/19 02:45 104 H 26 H 104/57 L 96 12/03/19 02:44 104 H 25 H 95 12/03/19 02:31 106 H 27 H 94 L 12/03/19 02:30 106 H 18 106/56 L 94 L 12/03/19 02:29 107 H 27 H 94 L 12/03/19 02:22 26 H 12/03/19 02:16 105 H 25 H 93 L 12/03/19 02:15 108 H 24 H 107/55 L 94 L 12/03/19 02:14 107 H 25 H 93 L 12/03/19 02:01 105 H 26 H 94 L 12/03/19 02:00 98.3 F 106 H 26 H 102/58 L 102/58 L 94 L 12/03/19 01:59 106 H 24 H 93 L 12/03/19 01:46 107 H 21 H 93 L 12/03/19 01:45 106 H 26 H 104/50 L 93 L 12/03/19 01:44 104 H 23 H 93 L 12/03/19 01:31 105 H 19 93 L 12/03/19 01:30 105 H 25 H 115/55 L 93 L 12/03/19 01:16 106 H 22 H 93 L 12/03/19 01:15 103 H 27 H 109/55 L 93 L 12/03/19 01:14 103 H 22 H 93 L 12/03/19 01:01 105 H 23 H 93 L 12/03/19 01:00 98.3 F 103 H 21 H 112/57 L 112/57 L 93 L 12/03/19 00:59 104 H 27 H 93 L 12/03/19 00:46 103 H 23 H 106/53 L 94 L 12/03/19 00:45 24 H 12/03/19 00:31 101 H 19 118/58 L 93 L 12/03/19 00:30 104 H 23 H 93 L 12/03/19 00:16 101 H 22 H 116/63 93 L 12/03/19 00:15 25 H 12/03/19 00:01 99 19 118/62 94 L 12/03/19 00:00 22 H 12/02/19 23:56 97.4 F 22 H 120/70 94 L 12/02/19 23:46 99 21 H 120/70 95 12/02/19 23:45 20 12/02/19 23:34 97.4 F 12/02/19 23:31 99 22 H 114/67 94 L 12/02/19 23:30 20 12/02/19 23:16 99 24 H 121/64 96 12/02/19 23:15 18 12/02/19 23:02 96 21 H 95 12/02/19 23:01 96 21 H 113/65 96 12/02/19 23:00 97 21 H 113/65 98 12/02/19 22:46 96 22 H 115/59 L 96 12/02/19 22:45 96 19 97 12/02/19 22:36 18 12/02/19 22:31 94 18 117/67 97 12/02/19 22:30 94 17 97 12/02/19 22:16 94 18 118/67 98 12/02/19 22:15 95 20 97 12/02/19 22:01 96 19 118/64 97 12/02/19 22:00 97.3 F 96 21 H 118/67 97 12/02/19 21:46 96 21 H 119/56 L 97 12/02/19 21:45 92 19 96 12/02/19 21:31 95 21 H 113/68 97 12/02/19 21:30 95 18 98 12/02/19 21:16 96 17 119/65 97 12/02/19 21:15 94 20 97 12/02/19 21:01 92 18 121/65 98 12/02/19 21:00 92 18 121/65 98 12/02/19 20:46 92 19 115/69 98 12/02/19 20:45 91 19 98 12/02/19 20:41 19 12/02/19 20:31 92 17 121/68 98 12/02/19 20:30 91 19 98 12/02/19 20:16 89 16 126/68 99 12/02/19 20:15 90 15 100 12/02/19 20:01 89 17 120/68 99 12/02/19 20:00 97.7 F 85 16 120/68 99 12/02/19 19:46 87 23 H 128/64 99 12/02/19 19:45 89 19 99 12/02/19 19:31 87 15 122/61 99 12/02/19 19:30 85 16 99 Pulse Ox 12/03/19 07:01 12/03/19 07:00 12/03/19 06:59 12/03/19 06:46 12/03/19 06:45 12/03/19 06:44 12/03/19 06:31 12/03/19 06:30 12/03/19 06:29 12/03/19 06:28 12/03/19 06:16 12/03/19 06:15 12/03/19 06:14 12/03/19 06:01 12/03/19 06:00 12/03/19 05:59 12/03/19 05:46 12/03/19 05:45 12/03/19 05:44 12/03/19 05:35 97 12/03/19 05:31 12/03/19 05:30 12/03/19 05:29 12/03/19 05:16 12/03/19 05:15 12/03/19 05:14 12/03/19 05:01 12/03/19 05:00 12/03/19 04:59 12/03/19 04:56 12/03/19 04:46 12/03/19 04:45 12/03/19 04:44 12/03/19 04:31 12/03/19 04:30 12/03/19 04:29 12/03/19 04:16 12/03/19 04:15 12/03/19 04:14 12/03/19 04:01 12/03/19 04:00 12/03/19 03:59 12/03/19 03:53 96 12/03/19 03:46 12/03/19 03:45 12/03/19 03:44 12/03/19 03:31 12/03/19 03:30 12/03/19 03:29 12/03/19 03:16 12/03/19 03:15 12/03/19 03:14 12/03/19 03:01 12/03/19 03:00 12/03/19 02:59 12/03/19 02:46 12/03/19 02:45 12/03/19 02:44 12/03/19 02:31 12/03/19 02:30 12/03/19 02:29 12/03/19 02:22 94 L 12/03/19 02:16 12/03/19 02:15 12/03/19 02:14 12/03/19 02:01 12/03/19 02:00 12/03/19 01:59 12/03/19 01:46 12/03/19 01:45 12/03/19 01:44 12/03/19 01:31 12/03/19 01:30 12/03/19 01:16 12/03/19 01:15 12/03/19 01:14 12/03/19 01:01 12/03/19 01:00 12/03/19 00:59 12/03/19 00:46 12/03/19 00:45 12/03/19 00:31 12/03/19 00:30 95 12/03/19 00:16 12/03/19 00:15 12/03/19 00:01 12/03/19 00:00 12/02/19 23:56 12/02/19 23:46 12/02/19 23:45 12/02/19 23:34 12/02/19 23:31 12/02/19 23:30 12/02/19 23:16 12/02/19 23:15 12/02/19 23:02 12/02/19 23:01 12/02/19 23:00 12/02/19 22:46 12/02/19 22:45 12/02/19 22:36 97 12/02/19 22:31 12/02/19 22:30 12/02/19 22:16 12/02/19 22:15 12/02/19 22:01 12/02/19 22:00 12/02/19 21:46 12/02/19 21:45 12/02/19 21:31 12/02/19 21:30 12/02/19 21:16 12/02/19 21:15 12/02/19 21:01 12/02/19 21:00 12/02/19 20:46 12/02/19 20:45 12/02/19 20:41 99 12/02/19 20:31 12/02/19 20:30 12/02/19 20:16 12/02/19 20:15 12/02/19 20:01 12/02/19 20:00 12/02/19 19:46 12/02/19 19:45 12/02/19 19:31 12/02/19 19:30 Date Exam was Performed: 12/05/19 Time Exam was Performed: 09:07 - Problem List & Annotations (1) Suicide attempt by multiple drug overdose SNOMED Code(s): 08224360 Code(s): T50.912A - POISN BY MULTIPLE UNSP DRUG/MEDS/BIOL SUBST, SELF-HARM, INIT Status: Acute Current Visit: Yes (2) Anxiety SNOMED Code(s): 78552318 Code(s): F41.9 - ANXIETY DISORDER, UNSPECIFIED Status: Acute Current Visit: Yes (3) Depression SNOMED Code(s): 34030251 Code(s): F32.9 - MAJOR DEPRESSIVE DISORDER, SINGLE EPISODE, UNSPECIFIED Status: Chronic Current Visit: No Qualifiers: Depression Type: other depression Qualified Code(s): F32.89 - Other specified depressive episodes (4) Hypothyroidism SNOMED Code(s): 95951581 Code(s): E03.9 - HYPOTHYROIDISM, UNSPECIFIED Status: Chronic Current Visit: No Qualifiers: Hypothyroidism type: unspecified Qualified Code(s): E03.9 - Hypothyroidism , unspecified (5) Schizophrenia SNOMED Code(s): 35302603 Code(s): F20.9 - SCHIZOPHRENIA, UNSPECIFIED Status: Chronic Current Visit : No Qualifiers: Schizophrenia type: paranoid schizophrenia Qualified Code(s): F20.0 - Paranoid schizophrenia (6) History of attempted suicide SNOMED Code(s): 689785581, 311611090 Code(s): Z91.5 - PERSONAL HISTORY OF SELF-HARM Status: Acute Current Visit: Yes (7) History of admission to inpatient psychiatry department SNOMED Code(s): 759323746 Code(s): Z86.59 - PERSONAL HISTORY OF OTHER MENTAL AND BEHAVIORAL DISORDERS Status: Acute Current Visit: Yes (8) Auditory hallucinations SNOMED Code(s): 83715773 Code(s): R44.0 - AUDITORY HALLUCINATIONS Status: Acute Current Visit: No (9) Suicidal thoughts SNOMED Code(s): 3170497 Code(s): R45.851 - SUICIDAL IDEATIONS Status: Acute Current Visit: No (10) Aspiration pneumonia SNOMED Code(s): 316293827 Code(s): J69.0 - PNEUMONITIS DUE TO INHALATION OF FOOD AND VOMIT Status: Acute Current Visit: Yes (11) Hospital-acquired pneumonia SNOMED Code(s): 468613102 Code(s): J18.9 - PNEUMONIA, UNSPECIFIED ORGANISM; Y95 - NOSOCOMIAL CONDITION Status: Acute Current Visit: Yes - Problem List Review Problem List Initiated/Reviewed/Updated: Yes - Plan Plan:: Suicide attempt by multiple drug overdose Anxiety/ Depression/ Schizophrenia Auditory hallucinations History of attempted suicide, multiple History of admission to inpatient psychiatry department, recently discharged Polysubstance abuse Patient ingested olanzapine, trazodone and bupropion Poison control contacted and recommended intubation with sedation with benzodiazepines and propofol, avoid barbiturates At least 5 prior suicide attempts are documented on patient's chart Abuse of amphetamines, THC, BDZ and opiates As per patient was having auditory hallucinations 2 weeks prior Intubated for airway protection QTc today: 521 PLAN - IVF with LR - Follow up with poison control - Daily EKGs for QTc monitoring - Seizure precautions - Sedation with Versed and propofol - Levophed for hypotension, goal MAP >64 - Monitor vital signs - ETT care by RT - Bed rotation by nursing staff Aspiration vs. Hospital Acquired PNA Hypotension in the setting of prior hypertension diagnosis BP trend 90-120/41-70 Purulent ETT secretions + fever spike PCN and cephalosporin allergic PLAN - Hold home med for now - Continue levophed, taper as tolerated - Start Clindamycin - Follow up on sputum and blood cultures Chronic headache Hypothyroidism No known acute issues or recent adjustment of his medications PLAN - TSH level - Hold home levothyroxine for now PROPHYLAXIS DVT- Lovenox GI- pantoprazole CODE STATUS: FULL CODE DISPOSITION: Patient will remain in ICU with propofol and versed for sedation. Follow up with poison control. Psychiatry consult once appropriate.
[2019-12-03] MEDS: Lactated Ringers 1,000 ML IV SCH ×3 (07:46→10:23)
[2019-12-03] MEDS: Pantoprazole 40 MG Vial IVPUSH SCH (08:07)
--- NOTE | 2019-12-03 08:09 | CR ---
Chest: Portable view of the chest was obtained. Comparison: Prior chest x-ray of 12/02/19. Tip of endotracheal tube lies at the upper clavicle level. Right jugular line remain stable in position. Nasogastric tube is noted. Tip position not optimally seen but appears to lie within the body of the stomach in satisfactory position. Heart size and mediastinum are within normal limits for portable technique. Mild areas of atelectasis are seen within both lung bases. Impression: 1. Tubes and catheters as described above. 2. Mild bibasilar atelectasis. 3. No other acute abnormality is seen. Diagnostic code #2 This report was dictated in [place] Standard Time
[2019-12-03] MEDS: Norepinephrine 16 MG in Dextrose 5% in Water 234 ML IV SCH ×2 (11:26)
[2019-12-03] MEDS ORDERED: Clindamycin Phosphate 600 MG in Sodium Chloride 0.9% 100 ML IV SCH (17:00)
[2019-12-03] MEDS ORDERED: Acetaminophen 650 MG Supp RECTAL PRN (20:00)
[2019-12-04] MEDS: Midazolam 50 MG in Sodium Chloride 0.9% 40 ML IV SCH ×2 (00:32→04:58)
[2019-12-04] MEDS: Enoxaparin 40 MG/0.4 ML Syringe SUBCUT SCH ×2 (01:05→12:55)
[2019-12-04] MEDS: propofoL 100 ML IV SCH ×2 (02:15→05:48)
[2019-12-04] MEDS ORDERED: Lactated Ringers 500 ML IV ONE (03:18)
[2019-12-04] MEDS: Norepinephrine 16 MG in Dextrose 5% in Water 234 ML IV SCH ×2 (06:35)
--- NOTE | 2019-12-04 08:32 | CR ---
Chest: Single view of the chest was obtained. Comparison: Prior chest x-ray of 12/03/19. Endotracheal tube has been removed. Mild subglottic narrowing is seen likely representing some post extubation edema. Mild atelectasis is noted within both lung bases. Heart size and mediastinum are stable. Nasogastric tube has been removed. Right jugular line remains. Impression: 1. Endotracheal tube and nasogastric tube have been removed. 2. Mild narrowing of the subglottic region. As mentioned above, this is most likely due to mild post extubation subglottic edema. 3. Mild bibasilar atelectasis is noted. Diagnostic code #3 This report was dictated in [place] Standard Time
[2019-12-04] MEDS: Pantoprazole 40 MG Vial IVPUSH SCH (09:04)
[2019-12-04] MEDS: Levalbuterol HCl 1.25 MG/3 ML Neb NEB SCH ×4 (09:12→21:26)
--- NOTE | 2019-12-04 09:12 | PCM.PN ---
- General Info Date of Service: 12/04/19 Subjective Update: OVERNIGHT EVENTS AND INTERVAL CHANGES - New fever spike, recultured Drips: - Propofol - Versed - Norepinephrine - LR VS trend: - Tmax: 101.2 - HR: 95-102 - BP: 110-121/42-71 Urine output: 2,090 NO BM Glucose trend: 114-121 WBC up from 9.01 to 12.25 QTc: 505 WBC up from 12.25 to 15.63 Blood culture growing gram + cocci in clusters on peripheral 3mL culture, nothing growing from central line cultures Clindamycin day 2 Mechanical Ventilation: Vt 450 RR 16x' PEEP 8 PIP 22 Pmean 12 Vte 11.5 - Patient Data Vitals - Most Recent: Last Vital Signs Temp 97.3 F 12/04/19 07:00 Pulse 86 12/04/19 05:00 Resp 16 12/04/19 08:00 BP 112/73 12/04/19 08:00 Pulse Ox 98 12/04/19 08:00 Weight - Most Recent: 152.588 kg - Exam Physical Findings Comments:: Quality Assessment: Supplemental Oxygen, Central Line/PICC, DVT Prophylaxis General: Sedated HEENT: Pupils Equal, Pupils Reactive, EOMI. No: Mucous Membr. Moist/[place] Lungs: Decreased Breath Sounds, Crackles, Rales. No: Rhonchi, Wheezing Cardiovascular: Regular Rate, Regular Rhythm. No: Murmurs, Gallops, Rubs GI/Abdominal Exam: Soft, Distended. No: Normal Bowel Sounds Extremities: Normal Inspection, Normal Capillary Refill, Pedal Edema Sepsis Event Note - Evaluation Sepsis Screening Result: Sepsis Risk - Focused Exam Vital Signs: Vital Signs Temp Temp Pulse Resp BP BP BP 12/04/19 08:00 16 112/73 12/04/19 07:00 97.3 F 10 L 117/91 H 12/04/19 06:18 18 12/04/19 05:00 86 16 111/63 12/04/19 04:26 19 12/04/19 04:00 98.2 F 91 21 H 132/67 12/04/19 03:00 98.8 F 20 94/45 L 12/04/19 02:53 96 23 H 99/52 L 12/04/19 02:52 92 16 12/04/19 02:46 91 19 12/04/19 02:45 91 18 92/41 L 12/04/19 02:44 91 18 12/04/19 02:31 92 18 12/04/19 02:30 92 19 94/47 L 12/04/19 02:29 92 18 12/04/19 02:16 94 12/04/19 02:15 94 19 90/47 L 12/04/19 02:14 94 19 12/04/19 02:02 19 12/04/19 02:01 96 12/04/19 02:00 98.2 F 96 11 L 95/46 L 90/47 L 12/04/19 01:59 96 21 H 12/04/19 01:46 98 22 H 12/04/19 01:45 100 9 L 99/53 L 12/04/19 01:44 96 20 12/04/19 01:37 98.2 F 12/04/19 01:31 98 22 H 12/04/19 01:30 98 23 H 101/43 L 12/04/19 01:29 97 23 H 12/04/19 01:17 102 H 26 H 97/46 L 12/04/19 01:16 100 25 H 12/04/19 01:15 99 25 H 94/41 L 12/04/19 01:14 98 23 H 12/04/19 01:07 101.2 F H 12/04/19 01:01 98 21 H 12/04/19 01:00 101.2 F H 98 20 115/54 L 115/54 L 12/04/19 00:59 98 21 H 12/04/19 00:46 96 19 12/04/19 00:45 96 19 114/57 L 12/04/19 00:44 95 19 12/04/19 00:31 96 20 12/04/19 00:30 96 18 114/54 L 12/04/19 00:29 96 20 12/04/19 00:25 19 12/04/19 00:16 96 21 H 12/04/19 00:15 96 20 110/51 L 12/04/19 00:14 96 21 H 12/04/19 00:01 97 22 H 12/04/19 00:00 98.2 F 97 22 H 108/57 L 108/57 L 12/03/19 23:59 97 22 H 12/03/19 23:46 96 21 H 12/03/19 23:45 96 21 H 105/50 L 12/03/19 23:44 96 22 H 12/03/19 23:39 97 23 H 105/51 L 12/03/19 23:38 96 24 H 12/03/19 23:31 97 23 H 92/44 L 12/03/19 23:30 97 20 12/03/19 23:16 100 22 H 12/03/19 23:15 100 27 H 112/54 L 12/03/19 23:14 103 H 34 H 12/03/19 23:11 98 23 H 94/45 L 12/03/19 23:10 101 H 21 H 12/03/19 23:01 99 23 H 12/03/19 23:00 99.7 F 99 23 H 94/51 L 105/51 L 12/03/19 22:59 100 23 H 12/03/19 22:46 101 H 23 H 101/46 L 12/03/19 22:45 100 22 H 12/03/19 22:31 102 H 22 H 111/47 L 12/03/19 22:30 100 18 12/03/19 22:16 102 H 16 113/57 L 12/03/19 22:15 102 H 23 H 12/03/19 22:01 101 H 21 H 104/48 L 12/03/19 22:00 102 H 18 104/48 L 12/03/19 21:46 102 H 24 H 109/50 L 12/03/19 21:45 102 H 23 H 12/03/19 21:31 101 H 23 H 106/51 L 12/03/19 21:30 102 H 23 H 12/03/19 21:16 102 H 23 H 110/51 L 12/03/19 21:15 102 H 25 H Pulse Ox Pulse Ox 12/04/19 08:00 98 12/04/19 07:00 98 12/04/19 06:18 97 12/04/19 05:00 97 12/04/19 04:26 96 12/04/19 04:00 97 12/04/19 03:00 97 12/04/19 02:53 95 12/04/19 02:52 97 12/04/19 02:46 96 12/04/19 02:45 97 12/04/19 02:44 95 12/04/19 02:31 97 12/04/19 02:30 97 12/04/19 02:29 96 12/04/19 02:16 96 12/04/19 02:15 96 12/04/19 02:14 96 12/04/19 02:02 97 12/04/19 02:01 97 12/04/19 02:00 97 12/04/19 01:59 97 12/04/19 01:46 97 12/04/19 01:45 97 12/04/19 01:44 97 12/04/19 01:37 12/04/19 01:31 96 12/04/19 01:30 96 12/04/19 01:29 96 12/04/19 01:17 93 L 12/04/19 01:16 93 L 12/04/19 01:15 95 12/04/19 01:14 96 12/04/19 01:07 12/04/19 01:01 97 12/04/19 01:00 97 12/04/19 00:59 97 12/04/19 00:46 97 12/04/19 00:45 97 12/04/19 00:44 97 12/04/19 00:31 97 12/04/19 00:30 97 12/04/19 00:29 97 12/04/19 00:25 97 12/04/19 00:16 96 12/04/19 00:15 96 12/04/19 00:14 96 12/04/19 00:01 96 12/04/19 00:00 96 12/03/19 23:59 96 12/03/19 23:46 96 12/03/19 23:45 96 12/03/19 23:44 96 12/03/19 23:39 96 12/03/19 23:38 96 12/03/19 23:31 96 12/03/19 23:30 96 12/03/19 23:16 97 12/03/19 23:15 97 12/03/19 23:14 96 12/03/19 23:11 96 12/03/19 23:10 96 12/03/19 23:01 96 12/03/19 23:00 96 12/03/19 22:59 96 12/03/19 22:46 98 12/03/19 22:45 98 12/03/19 22:31 97 12/03/19 22:30 97 97 12/03/19 22:16 97 12/03/19 22:15 97 12/03/19 22:01 97 12/03/19 22:00 96 12/03/19 21:46 96 12/03/19 21:45 97 12/03/19 21:31 97 12/03/19 21:30 97 12/03/19 21:16 97 12/03/19 21:15 97 Date Exam was Performed: 12/05/19 Time Exam was Performed: 09:12 - Problem List & Annotations (1) Suicide attempt by multiple drug overdose SNOMED Code(s): 05906241 Code(s): T50.912A - POISN BY MULTIPLE UNSP DRUG/MEDS/BIOL SUBST, SELF-HARM, INIT Status: Acute Current Visit: Yes (2) Anxiety SNOMED Code(s): 82268789 Code(s): F41.9 - ANXIETY DISORDER, UNSPECIFIED Status: Acute Current Visit: Yes (3) Depression SNOMED Code(s): 29095229 Code(s): F32.9 - MAJOR DEPRESSIVE DISORDER, SINGLE EPISODE, UNSPECIFIED Status: Chronic Current Visit: No Qualifiers: Depression Type: other depression Qualified Code(s): F32.89 - Other specified depressive episodes (4) Hypothyroidism SNOMED Code(s): 04280128 Code(s): E03.9 - HYPOTHYROIDISM, UNSPECIFIED Status: Chronic Current Visit: No Qualifiers: Hypothyroidism type: unspecified Qualified Code(s): E03.9 - Hypothyroidism , unspecified (5) Schizophrenia SNOMED Code(s): 90965529 Code(s): F20.9 - SCHIZOPHRENIA, UNSPECIFIED Status: Chronic Current Visit : No Qualifiers: Schizophrenia type: paranoid schizophrenia Qualified Code(s): F20.0 - Paranoid schizophrenia (6) History of attempted suicide SNOMED Code(s): 708418330, 933491723 Code(s): Z91.5 - PERSONAL HISTORY OF SELF-HARM Status: Acute Current Visit: Yes (7) History of admission to inpatient psychiatry department SNOMED Code(s): 611417713 Code(s): Z86.59 - PERSONAL HISTORY OF OTHER MENTAL AND BEHAVIORAL DISORDERS Status: Acute Current Visit: Yes (8) Auditory hallucinations SNOMED Code(s): 82458891 Code(s): R44.0 - AUDITORY HALLUCINATIONS Status: Acute Current Visit: No (9) Suicidal thoughts SNOMED Code(s): 0613636 Code(s): R45.851 - SUICIDAL IDEATIONS Status: Acute Current Visit: No (10) Aspiration pneumonia SNOMED Code(s): 706381217 Code(s): J69.0 - PNEUMONITIS DUE TO INHALATION OF FOOD AND VOMIT Status: Acute Current Visit: Yes (11) Hospital-acquired pneumonia SNOMED Code(s): 960830894 Code(s): J18.9 - PNEUMONIA, UNSPECIFIED ORGANISM; Y95 - NOSOCOMIAL CONDITION Status: Acute Current Visit: Yes (12) Hypertension SNOMED Code(s): 94792284 Code(s): I10 - ESSENTIAL (PRIMARY) HYPERTENSION Status: Acute Current Visit: Yes - Problem List Review Problem List Initiated/Reviewed/Updated: Yes - Plan Plan:: Suicide attempt by multiple drug overdose Anxiety/ Depression/ Schizophrenia Auditory hallucinations History of attempted suicide, multiple History of admission to inpatient psychiatry department, recently discharged Polysubstance abuse Patient ingested olanzapine, trazodone and bupropion Poison control contacted and recommended intubation with sedation with benzodiazepines and propofol, avoid barbiturates At least 5 prior suicide attempts are documented on patient's chart Abuse of amphetamines, THC, BDZ and opiates As per patient was having auditory hallucinations 2 weeks prior Intubated for airway protection QTc today: 505 PLAN - IVF with LR - Follow up with poison control - Daily EKGs for QTc monitoring - Seizure precautions - Sedation with Versed and propofol - Levophed for hypotension, goal MAP >64 - Monitor vital signs - ETT care by RT - Bed rotation by nursing staff - Extubate today Aspiration vs. Hospital Acquired PNA Hypotension in the setting of prior hypertension diagnosis BP trend 110-121/42-71 Purulent ETT secretions + fever spike PCN and cephalosporin allergic PLAN - Hold home med for now - Continue levophed, taper as tolerated - Continue Clindamycin - Follow up on sputum and blood cultures Chronic headache Hypothyroidism No known acute issues or recent adjustment of his medications PLAN - TSH level - Hold home levothyroxine for now PROPHYLAXIS DVT- Lovenox GI- pantoprazole CODE STATUS: FULL CODE DISPOSITION: Patient will remain in ICU with propofol and versed for sedation. Follow up with poison control. Psychiatry consult once appropriate.
[2019-12-04] MEDS: Lactated Ringers 1,000 ML IV SCH ×2 (11:52→21:17)
[2019-12-04] MEDS: Haloperidol Lactate 5 MG/ML SDV IVPUSH PRN ×3 (20:23→22:42)
[2019-12-04] MEDS ORDERED: QUEtiapine 25 MG Tab PO SCH (21:00)
[2019-12-04] MEDS: LORazepam 2 MG/ML SDV IVPUSH PRN ×2 (22:14→23:53)
[2019-12-05] MEDS ORDERED: 50% Dextrose in Water 50 ML Syringe IVPUSH PRN (00:18)
[2019-12-05] MEDS: LORazepam 2 MG/ML SDV IVPUSH PRN ×5 (01:56→10:27)
[2019-12-05] MEDS: Enoxaparin 40 MG/0.4 ML Syringe SUBCUT SCH (02:05)
[2019-12-05] MEDS ORDERED: Acetaminophen 325 MG Tab PO PRN (02:59)
[2019-12-05 04:04] VITALS: PULSE 114
[2019-12-05] MEDS: Lactated Ringers 1,000 ML IV SCH (06:31)
[2019-12-05] MEDS ORDERED: Clindamycin Phosphate 600 MG/4 ML SDV ONE (08:02)
[2019-12-05 08:05] VITALS: BP 129/66
[2019-12-05] MEDS: Pantoprazole 40 MG Vial IVPUSH SCH (08:13)
[2019-12-05] MEDS ORDERED: Nicotine 21 MG/24 Hr Patch TRDERM SCH (09:15)
--- NOTE | 2019-12-05 09:26 | PCM.DCSUM1 ---
Discharge Summary - Hospital Course HPI Initial Comments: This is a 33 year old male with past medical history of paranoid schizophrenia who was brought to the ED via EMS after being called by who found patient down with multiple empty pill bottles. As per patient's he has had multiple prior suicide attempts and inpatient psychiatry statys, last one being 1 month ago approximately. She stated for the past 2 weeks patient had been having auditory hallucinations. Patient ingested 1 month's worth of Olanzapine, bupropion and trazodone. - Discharge Data Discharge Date: 12/05/19 Discharge Disposition: DC/Tfer to Acute Hospital 02 Condition: Good - Referral to Home Health Primary Care Physician: PCP None - Discharge Diagnosis/Problem(s) (1) Suicide attempt by multiple drug overdose SNOMED Code(s): 85804431 ICD Code: T50.912A - POISN BY MULTIPLE UNSP DRUG/MEDS/BIOL SUBST, SELF-HARM, INIT Status: Acute Current Visit: Yes (2) Anxiety SNOMED Code(s): 82653150 ICD Code: F41.9 - ANXIETY DISORDER, UNSPECIFIED Status: Acute Current Visit: Yes (3) Depression SNOMED Code(s): 87055575 ICD Code: F32.9 - MAJOR DEPRESSIVE DISORDER, SINGLE EPISODE, UNSPECIFIED Status: Chronic Current Visit: No Qualifiers: Depression Type: other depression Qualified Code(s): F32.89 - Other specified depressive episodes (4) Hypothyroidism SNOMED Code(s): 75543572 ICD Code: E03.9 - HYPOTHYROIDISM, UNSPECIFIED Status: Chronic Current Visit: No Qualifiers: Hypothyroidism type: unspecified Qualified Code(s): E03.9 - Hypothyroidism , unspecified (5) Schizophrenia SNOMED Code(s): 73189693 ICD Code: F20.9 - SCHIZOPHRENIA, UNSPECIFIED Status: Chronic Current Visit: No Qualifiers: Schizophrenia type: paranoid schizophrenia Qualified Code(s): F20.0 - Paranoid schizophrenia (6) History of attempted suicide SNOMED Code(s): 991251731, 393902283 ICD Code: Z91.5 - PERSONAL HISTORY OF SELF-HARM Status: Acute Current Visit: Yes (7) History of admission to inpatient psychiatry department SNOMED Code(s): 755362529 ICD Code: Z86.59 - PERSONAL HISTORY OF OTHER MENTAL AND BEHAVIORAL DISORDERS Status: Acute Current Visit: Yes (8) Auditory hallucinations SNOMED Code(s): 89752458 ICD Code: R44.0 - AUDITORY HALLUCINATIONS Status: Acute Current Visit: No (9) Suicidal thoughts SNOMED Code(s): 8368825 ICD Code: R45.851 - SUICIDAL IDEATIONS Status: Acute Current Visit: No (10) Aspiration pneumonia SNOMED Code(s): 509803483 ICD Code: J69.0 - PNEUMONITIS DUE TO INHALATION OF FOOD AND VOMIT Status: Acute Current Visit: Yes (11) Hospital-acquired pneumonia SNOMED Code(s): 870048092 ICD Code: J18.9 - PNEUMONIA, UNSPECIFIED ORGANISM; Y95 - NOSOCOMIAL CONDITION Status: Acute Current Visit: Yes (12) Hypertension SNOMED Code(s): 65966328 ICD Code: I10 - ESSENTIAL (PRIMARY) HYPERTENSION Status: Acute Current Visit: Yes - Patient Summary/Data Operative Procedure(s) Performed: Intubation. Central line placement Labs Pending at D/C: Blood and sputum cultures Hospital Course: Poison control was consulted in the emergency department when patient was brought in. They recommended prophylactic intubation followed by sedation with midazolam and propofol. Intubation without any complications. Patient was transferred to ICU where blood pressure droped 2/2 propofol infusion for which a central line was placed and patient was started on norepinephrine. High sedation requirements meant high levophed rates while patient was intubated. On 2-3rd admission day patient spiked a fever for which a lactic acid was obtained a patient was pancultured. Lactic acid was elevated and patient was dependent on levophed to maintain blood pressure for which he received multiple fluid boluses to maintain BP. ETT secretions changed on day 3 to purulent for which they were sent to culture. CXR with minimal changes but very poor quality and physical exam confounded by patient's body habitus. Due to patient being allergic to PCN and cephalosporins as per chart and inability to confirm these allergies he was started on clindamycin. Enteral tube feeds were started without any residuals On day 4 patient passed SBT for which he was extubated with subsequent removal of OG tube. He was placed on nasal cannula and has maintain O2 sats in low 90s at 4L NC As per poison control patient will be "out of the khan" once QTc is no longer prolonged. This is due to medications having such a long half life. Today WBC improved from 15.6 to 14.8 UO at 5.2 L Sputum culture is growing gram + cocci Blood culture without any specific bacterial identification except for the gram + cocci in clusters - Discharge Plan Home Medications: Home Meds Levothyroxine 150 mcg PO ACBREAKFAST 10/10/19 [History] Venlafaxine [Effexor XR] 225 mg PO DAILY 10/10/19 [History] lisinopriL [Lisinopril] 40 mg PO DAILY 10/10/19 [History] buPROPion [Wellbutrin SR] 150 mg PO DAILY 11/10/19 [History] OLANZapine [ZyPREXA] 2 mg PO BID 11/26/19 [History] clonazePAM [Clonazepam] 1 mg PO BID 11/26/19 [History] traZODone HCl [Trazodone HCl] 150 mg PO BEDTIME 12/01/19 [History] Oxygen Therapy Mode: Nasal Cannula Oxygen Flow Rate (L/min): 4 Forms: ED Department Discharge - Discharge Summary/Plan Comment DC Time >30 min.: Yes - General Info Date of Service: 12/05/19 Subjective Update: OVERNIGHT EVENTS AND INTERVAL CHANGES VS trend: - Tmax: 101.8 - HR: 90-117 - BP: 96-132/57-69 Urine output: 5,220 NO BM Glucose trend: 114-138 WBC down from 15.6 to 14.8 QTc: 519 WBC up from 12.25 to 15.63 Blood culture growing gram + cocci in clusters on peripheral 3mL culture, nothing growing from central line cultures Sputum culture with gram positive cocci Clindamycin day 3 - Patient Data Vitals - Most Recent: Last Vital Signs Temp 98.3 F 12/05/19 08:00 Pulse 114 H 12/05/19 04:00 Resp 28 H 12/05/19 08:00 BP 129/66 12/05/19 08:00 Pulse Ox 92 L 12/05/19 08:00 Weight - Most Recent: 152.588 kg I&O - Last 24 hours: Intake & Output 12/04/19 12/05/19 12/05/19 22:59 06:59 14:59 Intake Total 2176 1239 Output Total 1665 2250 600 Balance 511 -1011 -600 RAULITO Results - Last 24 hrs: Microbiology 12/03/19 04:47 Aerobic Blood Culture - Preliminary Blood - Venous - Lab Draw Gram Positive Cocci In Clustrs Anaerobic Blood Culture - Final 12/03/19 04:30 Aerobic Blood Culture - Preliminary Blood - Venous NO GROWTH AFTER 2 DAYS Anaerobic Blood Culture - Preliminary NO GROWTH AFTER 2 DAYS 12/03/19 04:50 Gram Stain - Final Sputum - Other Sputum Culture - Preliminary Gram Positive Cocci - Exam General: Reports: Alert, Cooperative, No Acute Distress HEENT: Reports: Pupils Equal, Pupils Reactive, Mucous Membr. Moist/[place] Neck: Reports: Supple Lungs: Reports: Decreased Breath Sounds, Crackles. Denies: Rales, Rhonchi, Wheezing Cardiovascular: Reports: Regular Rate, Regular Rhythm. Denies: Murmurs, Gallops , Rubs GI/Abdominal Exam: Normal Bowel Sounds, Soft, Distended. No: Guarding, Rigid, Rebound, Tender Extremities: Normal Inspection, Normal Capillary Refill, Pedal Edema Skin: Reports: Warm, Dry Neurological: Reports: No New Focal Deficit Psy/Mental Status: Reports: Alert, Labile Mood, Anxious
[2019-12-05] MEDS ORDERED: Haloperidol Lactate 5 MG/ML SDV IVPUSH ONE (10:01)
== END 2019-12-05 10:40 | DRG 918 ==
LOC: JD.ED 12:25 → JD.ICU 13:23
PROVIDERS: ADMIT Internal Medicine; ATTEND Internal Medicine
PROC: 0BH17EZ Insertion of Endotracheal Airway into Trachea, Via Natural or Artificial Opening (ICD-10-PCS; principal; 2019-12-01)
PROC: 05HM33Z Insertion of Infusion Device into Right Internal Jugular Vein, Percutaneous Approach (ICD-10-PCS; 2019-12-01)
PROC: 5A1945Z Respiratory Ventilation, 24-96 Consecutive Hours (ICD-10-PCS; 2019-12-01)
PROC: 3E033XZ Introduction of Vasopressor into Peripheral Vein, Percutaneous Approach (ICD-10-PCS; 2019-12-03)
DX: T43.592A Poisoning by other antipsychotics and neuroleptics, intentional self-harm, initial encounter (principal); F20.0 Paranoid schizophrenia; Z68.42 Body mass index [BMI] 45.0-49.9, adult; T43.292A Poisoning by other antidepressants, intentional self-harm, initial encounter; H54.7 Unspecified visual loss; T43.212A Poisoning by selective serotonin and norepinephrine reuptake inhibitors, intentional self-harm, initial encounter; I10 Essential (primary) hypertension; M79.7 Fibromyalgia; F41.9 Anxiety disorder, unspecified; E03.9 Hypothyroidism, unspecified; F32.89 Other specified depressive episodes; Z79.890 Hormone replacement therapy; E88.09 Other disorders of plasma-protein metabolism, not elsewhere classified; E66.01 Morbid (severe) obesity due to excess calories; R51 Headache; F17.200 Nicotine dependence, unspecified, uncomplicated; I95.9 Hypotension, unspecified; Z88.1 Allergy status to other antibiotic agents; Z91.5 Personal history of self-harm; Z88.0 Allergy status to penicillin; Z90.89 Acquired absence of other organs; Z98.890 Other specified postprocedural states; Z99.81 Dependence on supplemental oxygen; Z88.8 Allergy status to other drugs, medicaments and biological substances; Z79.899 Other long term (current) drug therapy
CPT/HCPCS: 36415; 80053; 80306; 82803; 85025; 93005; 96360; 99285; G0480 ×3; J0330; J2250 ×2; J2704; J3490; J7030; 36600; 71045; 71045-26; 80048; 81001; 82550; 82962; 83605; 83735; 83880; 84100; 84145; 85027; 87040; 87070; 87077; 87186; 87205; 93010; 94003; 94640; 99284; A9270-GY; C9113; J1630; J1650; J2060; J3475; J7042; J7050; J7060; J7120; J7612-GY

== ENCOUNTER 2020-05-03 18:35 | Emergency (ER) | payer MEDICARE, OTHER ==
--- NOTE | 2020-05-03 19:08 | EDM.PDOCBH ---
ED HPI GENERAL MEDICAL PROBLEM - General Chief Complaint: Behavioral/Psych Stated Complaint: SUICIDAL Time Seen by Provider: 05/03/20 18:43 Source of Information: Reports: Patient History Limitations: Reports: No Limitations - History of Present Illness INITIAL COMMENTS - FREE TEXT/NARRATIVE: The patient presents with suicidal ideation. He has a history of depression, suicidal attempts, schizophrenia with hallucinations and also paranoia. He sees Dr Braswell and he can not see her again for another 2 weeks. He says the paranoia is better but he feels something is off. He feels suicidal. He may overdose or get the train schedule and lay on the rail road tracks. He has overdosed in the past where he needed to be intubated and transferred to [place] to the ICU. He has no other symptoms such as fever, chills, cough, congestion, runny nose, chest pain, shortness of breath, abdominal pain, nausea or vomiting. He says the only change to his medications lately is his abilify was stopped. It had no affect and was making him worse. Onset: Gradual Duration: Day(s): Severity: Moderate Improves with: Reports: None Worsens with: Reports: None Associated Symptoms: Reports: No Other Symptoms - Related Data Allergies Allergy/AdvReac Type Severity Reaction Status Date / Time cefaclor [From Ceclor] Allergy Rash Verified 12/01/19 15:26 Penicillins Allergy Rash Verified 12/01/19 15:26 Home Meds: Home Meds Levothyroxine 150 mcg PO ACBREAKFAST 10/10/19 [History] Venlafaxine [Effexor XR] 225 mg PO DAILY 10/10/19 [History] lisinopriL [Lisinopril] 40 mg PO DAILY 10/10/19 [History] buPROPion [Wellbutrin SR] 300 mg PO DAILY 11/10/19 [History] clonazePAM [Clonazepam] 1 mg PO BID 11/26/19 [History] traZODone HCl [Trazodone HCl] 150 mg PO BEDTIME 12/01/19 [History] Past Medical History HEENT History: Reports: Impaired Vision Other HEENT History: wears eyeglasses Cardiovascular History: Reports: Hypertension Respiratory History: Reports: None Gastrointestinal History: Reports: Gastritis Genitourinary History: Reports: None Musculoskeletal History: Reports: Fibromyalgia Neurological History: Reports: Headaches, Chronic Psychiatric History: Reports: Anxiety, Depression, Psych Hospitalization(s), Schizophrenia, Suicide Attempt Endocrine/Metabolic History: Reports: Hypothyroidism, Obesity/BMI 30+ Hematologic History: Reports: None Immunologic History: Reports: None Oncologic (Cancer) History: Reports: None Dermatologic History: Reports: Other (See Below) Other Dermatologic History: yeast infections - Infectious Disease History Infectious Disease History: Reports: Chicken Pox - Past Surgical History Head Surgeries/Procedures: Reports: None HEENT Surgical History: Reports: Myringotomy w Tube(s), Naso-Sinus Surgery, Tonsillectomy Male Surgical History: Reports: None Social & Family History - Family History Family Medical History: Noncontributory Cardiac: Reports: CAD Oncologic: Reports: Lung, Ovarian, Other (See Below) Other Oncologic Family History: tongue - Tobacco Use Smoking Status *Q: Current Every Day Smoker Years of Tobacco use: 12 Packs/Tins Daily: 1 - Caffeine Use Caffeine Use: Reports: Coffee, Soda, Tea Other Caffeine Use: aspercane thru diet soda Caffeine Use Comment: unable to obtain - Recreational Drug Use Recreational Drug Use: No - Living Situation & Occupation Living situation: Reports: , with Spouse, with Family (1 child) Occupation: Unemployed ED ROS GENERAL - Review of Systems Review Of Systems: See Below Constitutional: Reports: No Symptoms HEENT: Reports: No Symptoms Respiratory: Reports: No Symptoms Cardiovascular: Reports: No Symptoms Endocrine: Reports: No Symptoms GI/Abdominal: Reports: No Symptoms : Reports: No Symptoms Musculoskeletal: Reports: No Symptoms Skin: Reports: No Symptoms Neurological: Reports: No Symptoms Psychiatric: Reports: Suicidal Ideation. Denies: Anxiety, Homicidal Ideation ED EXAM, BEHAVIORAL HEALTH - Physical Exam Exam: See Below Exam Limited By: No Limitations General Appearance: Alert, No Apparent Distress Ears: Normal External Exam Nose: Normal Inspection Head: Atraumatic, Normocephalic Neck: Normal Inspection Respiratory/Chest: No Respiratory Distress, Lungs Clear, Normal Breath Sounds Cardiovascular: Regular Rate, Rhythm, No Edema, No Murmur GI/Abdominal: Soft, Non-Tender, No Organomegaly, No Mass Back Exam: Normal Inspection Extremities: Normal Inspection COURSE, BEHAVIORAL HEALTH COMP - Course Vital Signs: Last Vital Signs Temp 98.2 F 05/03/20 18:49 Pulse 105 H 05/03/20 18:49 Resp 20 05/03/20 18:49 BP 113/82 05/03/20 18:49 Pulse Ox 96 05/03/20 18:49 Orders, Labs, Meds: Active Orders 24 hr Category Date Time Status Cardiac Monitoring [RC] . DIRECTED Care 05/03/20 19:00 Active Laboratory Tests 05/03/20 05/03/20 05/03/20 Range/Units 19:20 19:20 19:20 WBC 10.04 H (4.23-9.07) K/mm3 RBC 5.37 (4.63-6.08) M/mm3 Hgb 15.6 D (13.7-17.5) gm/dl Hct 45.7 (40.1-51.0) % MCV 85.1 D (79.0-92.2) fl MCH 29.1 (25.7-32.2) pg MCHC 34.1 (32.2-35.5) g/dl RDW Std Deviation 40.9 (35.1-43.9) fL Plt Count 297 (163-337) K/mm3 MPV 10.0 (9.4-12.3) fl Neut % (Auto) 67.3 (34.0-67.9) % Lymph % (Auto) 22.9 (21.8-53.1) % Gooding % (Auto) 7.1 (5.3-12.2) % Eos % (Auto) 2.1 (0.8-7.0) Baso % (Auto) 0.4 (0.1-1.2) % Neut # (Auto) 6.76 H (1.78-5.38) K/mm3 Lymph # (Auto) 2.30 (1.32-3.57) K/mm3 Gooding # (Auto) 0.71 (0.30-0.82) K/mm3 Eos # (Auto) 0.21 (0.04-0.54) K/mm3 Baso # (Auto) 0.04 (0.01-0.08) K/mm3 Manual Slide Review Normal smear Sodium 139 (136-145) mEq/L Potassium 3.8 (3.5-5.1) mEq/L Chloride 102 (98-107) mEq/L Carbon Dioxide 25 (21-32) mEq/L Anion Gap 15.8 H (5-15) BUN 17 (7-18) mg/dL Creatinine 1.6 H (0.7-1.3) mg/dL Est Cr Clr Drug Dosing 68.63 mL/min Estimated GFR (MDRD) 49 (>60) mL/min BUN/Creatinine Ratio 10.6 L (14-18) Glucose 107 H (74-106) mg/dL Calcium 9.4 (8.5-10.1) mg/dL Total Bilirubin 0.3 (0.2-1.0) mg/dL AST 27 (15-37) U/L ALT 49 (16-63) U/L Alkaline Phosphatase 61 (46-116) U/L Total Protein 7.8 (6.4-8.2) g/dl Albumin 3.9 (3.4-5.0) g/dl Globulin 3.9 gm/dL Albumin/Globulin Ratio 1.0 (1-2) TSH 3rd Generation 4.183 H (0.358-3.74) uIU/mL Salicylates 0.2 L (2.8-20) mg/dL Urine Opiates Screen (ETVANR=081) Ur Buprenorphine Scrn (CUTOFF=10) Ur Oxycodone Screen (LOS1JN=243) Urine Methadone Screen (SIH4ZN=363) Ur Propoxyphene Screen (BNBEPT=913) Acetaminophen 0 L (10-30) ug/mL Ur Barbiturates Screen (NMVAMV=648) Ur Tricyclics Screen (CMSUGY=766) Ur Phencyclidine Scrn (CUTOFF=25) Ur Amphetamine Screen (HUKVPJ=275) U Methamphetamines Scrn (LDTAJB=139) U Benzodiazepines Scrn (KZWHNR=945) U Cocaine Metab Screen (UYRYDQ=613) U Marijuana (THC) Screen (CUTOFF=50) Ethyl Alcohol 0.00 (0.00) gm% COVID-19 (GRACIELA) (NEGATIVE) 05/03/20 05/03/20 Range/Units 19:35 19:40 WBC (4.23-9.07) K/mm3 RBC (4.63-6.08) M/mm3 Hgb (13.7-17.5) gm/dl Hct (40.1-51.0) % MCV (79.0-92.2) fl MCH (25.7-32.2) pg MCHC (32.2-35.5) g/dl RDW Std Deviation (35.1-43.9) fL Plt Count (163-337) K/mm3 MPV (9.4-12.3) fl Neut % (Auto) (34.0-67.9) % Lymph % (Auto) (21.8-53.1) % Gooding % (Auto) (5.3-12.2) % Eos % (Auto) (0.8-7.0) Baso % (Auto) (0.1-1.2) % Neut # (Auto) (1.78-5.38) K/mm3 Lymph # (Auto) (1.32-3.57) K/mm3 [place] # (Auto) (0.30-0.82) K/mm3 Eos # (Auto) (0.04-0.54) K/mm3 Baso # (Auto) (0.01-0.08) K/mm3 Manual Slide Review Sodium (136-145) mEq/L Potassium (3.5-5.1) mEq/L Chloride (98-107) mEq/L Carbon Dioxide (21-32) mEq/L Anion Gap (5-15) BUN (7-18) mg/dL Creatinine (0.7-1.3) mg/dL Est Cr Clr Drug Dosing mL/min Estimated GFR (MDRD) (>60) mL/min BUN/Creatinine Ratio (14-18) Glucose (74-106) mg/dL Calcium (8.5-10.1) mg/dL Total Bilirubin (0.2-1.0) mg/dL AST (15-37) U/L ALT (16-63) U/L Alkaline Phosphatase (46-116) U/L Total Protein (6.4-8.2) g/dl Albumin (3.4-5.0) g/dl Globulin gm/dL Albumin/Globulin Ratio (1-2) TSH 3rd Generation (0.358-3.74) uIU/mL Salicylates (2.8-20) mg/dL Urine Opiates Screen Negative (GYQRBU=298) Ur Buprenorphine Scrn Negative (CUTOFF=10) Ur Oxycodone Screen Negative (PKR5OZ=044) Urine Methadone Screen Negative (PEX2MB=827) Ur Propoxyphene Screen Negative (EKUZCW=869) Acetaminophen (10-30) ug/mL Ur Barbiturates Screen Negative (HPZPQC=115) Ur Tricyclics Screen Negative (PZMFCL=164) Ur Phencyclidine Scrn Negative (CUTOFF=25) Ur Amphetamine Screen Negative (ILUKGV=330) U Methamphetamines Scrn Negative (ULNQSD=447) U Benzodiazepines Scrn Negative (ULRPXE=980) U Cocaine Metab Screen Negative (TPFIFC=629) U Marijuana (THC) Screen Negative (CUTOFF=50) Ethyl Alcohol (0.00) gm% COVID-19 (GRACIELA) Negative (NEGATIVE) Re-Assessment/Re-Exam: I have ordered the necessary labs and COVID 19. His WBC was slightly elevated at 10.04. His CMP is negative. His TSH was slightly elevated at 4.183. His UDS is negative. His salicylates and acetaminophen is negative. His ETOH is negative. His COVID 19 is negative. I called [facility] in [place] and Dr Nath the ER physician accepted him. He will be going by family. Departure - Departure Time of Disposition: 20:45 Disposition: DC/Tfer to Psych Hosp/Unit 65 Condition: Fair Clinical Impression: Depressive disorder, Suicidal ideation - Discharge Information *PRESCRIPTION DRUG MONITORING PROGRAM REVIEWED*: Not Applicable *COPY OF PRESCRIPTION DRUG MONITORING REPORT IN PATIENT INGRIS: Not Applicable Referrals: Alanna Casiano MD [Primary Care Provider] - Forms: ED Department Discharge Additional Instructions: Go directly to [facility] ER. Sepsis Event Note (ED) - Evaluation Sepsis Screening Result: No Definite Risk - Focused Exam Vital Signs: Vital Signs Temp Pulse Resp BP Pulse Ox 05/03/20 18:49 98.2 F 105 H 20 113/82 96 - My Orders Last 24 Hours: My Active Orders 05/03/20 19:00 Cardiac Monitoring [RC] . DIRECTED - Assessment/Plan Last 24 Hours: My Active Orders 05/03/20 19:00 Cardiac Monitoring [RC] . DIRECTED
[2020-05-03 21:01] VITALS: BP 123/71; PULSE 96
== END 2020-05-03 21:00 ==
LOC: JD.ED 18:35
DX: F32.9 Major depressive disorder, single episode, unspecified (principal); I10 Essential (primary) hypertension; F41.9 Anxiety disorder, unspecified; E03.9 Hypothyroidism, unspecified; E66.9 Obesity, unspecified; F17.210 Nicotine dependence, cigarettes, uncomplicated; Z68.41 Body mass index [BMI] 40.0-44.9, adult; Z20.828 Contact with and (suspected) exposure to other viral communicable diseases; Z88.1 Allergy status to other antibiotic agents; Z88.0 Allergy status to penicillin
CPT/HCPCS: 36415; 80053; 80306; 80307; 84443; 85025; 99285; U0002

== ENCOUNTER 2020-06-14 21:06 | Emergency (ER) | payer MEDICARE, OTHER ==
[2020-06-14] MEDS ORDERED: Sodium Chloride 0.9% 1,000 ML IV ONE (21:24)
--- NOTE | 2020-06-14 21:37 | EDM.PDOCBH ---
ED HPI GENERAL MEDICAL PROBLEM - General Chief Complaint: Behavioral/Psych Stated Complaint: [facility] Time Seen by Provider: 06/14/20 21:17 Source of Information: Reports: Patient, RN History Limitations: Reports: Other (Patient's speech rapid, mumbled, rambling - unable to obtain a meaningful history) - History of Present Illness INITIAL COMMENTS - FREE TEXT/NARRATIVE: Mr. Evans is a pleasant 34-year-old gentleman with a past medical history significant for anxiety, depression, schizophrenia, and at least 7 prior suicide attempts that we know of, all by pill overdose, who is now brought to the ED by EMS after his called 911 due to the patient being paranoid. We do not have any more details than that; the patient's did not come to the ED. Here in the ED, the patient is found to be hypotensive at 86/68, with a tachycardia of 115 bpm. He is afebrile, saturating 95% on room air. When asked if he had taken any medications recently, the patient stated that he had taken trazodone, of which he is prescribed 150 mg at bedtime, but is unclear if he took an excess. Due to the patient's agitation, a recent review of systems was unable to be obtained. It is believed that his PCP is Alanna Casiano NP. The patient's Psychiatrist is Dr. Indira Braswell. Back Pain Score (Numeric/FACES): 10 - Related Data Allergies Allergy/AdvReac Type Severity Reaction Status Date / Time cefaclor [From Ceclor] Allergy Severe Rash Verified 06/14/20 21:19 Penicillins Allergy Severe Rash Verified 06/14/20 21:18 Home Meds: Home Meds Levothyroxine 150 mcg PO ACBREAKFAST 10/10/19 [History] Venlafaxine [Effexor XR] 225 mg PO DAILY 10/10/19 [History] lisinopriL [Lisinopril] 40 mg PO DAILY 10/10/19 [History] buPROPion [Wellbutrin SR] 300 mg PO DAILY 11/10/19 [History] clonazePAM [Clonazepam] 1 mg PO BID 11/26/19 [History] traZODone HCl [Trazodone HCl] 150 mg PO BEDTIME 12/01/19 [History] Past Medical History HEENT History: Reports: Impaired Vision (wears glasses) Cardiovascular History: Reports: Hypertension Psychiatric History: Reports: Anxiety, Depression, Psych Hospitalization(s), Schizophrenia, Suicide Attempt (x 5, all by pill OD) Endocrine/Metabolic History: Reports: Hypothyroidism, Obesity/BMI 30+ - Infectious Disease History Infectious Disease History: Reports: Chicken Pox - Past Surgical History HEENT Surgical History: Reports: Myringotomy w Tube(s), Naso-Sinus Surgery (x 6), Tonsillectomy Social & Family History - Family History Family Medical History: Noncontributory Cardiac: Reports: CAD Oncologic: Reports: Lung, Ovarian, Other (See Below) Other Oncologic Family History: tongue - Tobacco Use Smoking Status *Q: Former Smoker Years of Tobacco use: 13 Packs/Tins Daily: 0.5 Month/Year Tobacco Last Used: Quit 2014 - Caffeine Use Caffeine Use: Reports: Coffee, Energy Drinks, Soda Other Caffeine Use: aspercane thru diet soda Caffeine Use Comment: unable to obtain - Alcohol Use Alcohol Use History: Yes Alcohol Use Frequency: Rarely - Recreational Drug Use Recreational Drug Use: Yes Drug Use in Last 12 Months: No Recreational Drug Type: Reports: Marijuana/Hashish (last smoked 2013) - Living Situation & Occupation Living situation: Reports: , with Spouse, with Family (1 child) Occupation: Unemployed ED ROS GENERAL - Review of Systems Review Of Systems: Unable To Obtain Reason Not Obtained: [facility] ED EXAM, BEHAVIORAL HEALTH - Physical Exam Exam: See Below Exam Limited By: No Limitations (the patient took deep breaths when asked to) General Appearance: Alert, WD/WN Eye Exam: Bilateral Eye: EOMI, Normal Inspection, PERRL (around 6 mm, but minimal constriction to light) Ears: Normal External Exam, Hearing Grossly Normal Nose: Normal Inspection Throat/Mouth: Normal Inspection, Normal Lips, Normal Voice, No Airway Compromise Head: Atraumatic, Normocephalic Neck: Normal Inspection, Full Range of Motion Respiratory/Chest: No Respiratory Distress, Lungs Clear, Normal Breath Sounds, No Accessory Muscle Use Cardiovascular: Normal Peripheral Pulses, Regular Rate, Rhythm, No Edema, No Gallop, No JVD, No Murmur, No Rub GI/Abdominal: Normal Bowel Sounds, Soft, No Organomegaly, No Distention, No Abnormal Bruit, No Mass, Tender (The patient is claiming tenderness to palpation of his entire abdomen, but he did not move his hand or flex either hip in response to my palpating on his abdomen) (Male) Exam: Deferred Rectal (Males) Exam: Deferred Back Exam: Normal Inspection, Full Range of Motion, NT Extremities: Normal Inspection, Normal Range of Motion, No Pedal Edema, Normal Capillary Refill Neurological: Alert, No Motor/Sensory Deficits Psychiatric: Agitated, Pressured Speech Skin Exam: Warm, Intact, Normal color, No rash, Diaphoretic EKG INTERPRETATION EKG Date: 06/14/20 Time: 21:30 Rhythm: Other (Sinus tachycardia) Rate (Beats/Min): 110 [place]: Normal P-Wave: Present QRS: Other (Late transition) ST-T: Normal QT: Normal Comparison: Change From Previous EKG (Late transition new since 12/05/2019) COURSE, BEHAVIORAL HEALTH COMP - Course Vital Signs: Last Vital Signs Temp 36.8 C 06/14/20 21:08 Pulse 100 06/15/20 00:40 Resp 21 H 06/15/20 00:40 BP 90/60 06/15/20 00:40 Pulse Ox 96 06/15/20 00:40 Orders, Labs, Meds: Active Orders 24 hr Category Date Time Status EKG Documentation Completion [RC] STAT Care 06/14/20 21:23 Active Chest 1V Frontal [CR] Stat Exams 06/14/20 23:14 Taken CULTURE BLOOD [BC] Stat Lab 06/14/20 23:35 Received CULTURE BLOOD [BC] Stat Lab 06/14/20 23:50 Received Sodium Bicarbonate [Sodium Bicarbonate 8.4%] 150 meq Med 06/15/20 01:05 Ordered Dextrose 5% in Water 1,000 ml IV ONETIME Sodium Bicarbonate [Sodium Bicarbonate 8.4%] 50 meq Med 06/15/20 00:30 Active Sodium Chloride 0.45% 1,000 ml IV ONETIME Blood Culture x2 Reflex Set [OM.PC] Stat Oth 06/14/20 23:14 Ordered Medication Orders Sodium Bicarbonate 50 meq/ (Sodium Chloride) 1,050 mls @ 999 mls/hr IV ONETIME ONE Stop: 06/15/20 01:33 Last Admin: 06/15/20 00:42 Dose: 999 mls/hr Documented by: RAE Sodium Bicarbonate 150 meq/ (Dextrose/Water) 1,150 mls @ 150 mls/hr IV ONETIME ONE Stop: 06/15/20 08:44 Laboratory Tests 06/14/20 06/14/20 06/14/20 Range/Units 21:16 21:25 21:25 WBC 10.99 H (4.23-9.07) K/mm3 RBC 5.45 (4.63-6.08) M/mm3 Hgb 15.7 (13.7-17.5) gm/dl Hct 45.9 (40.1-51.0) % MCV 84.2 (79.0-92.2) fl MCH 28.8 (25.7-32.2) pg MCHC 34.2 (32.2-35.5) g/dl RDW Std Deviation 40.9 (35.1-43.9) fL Plt Count 385 H D (163-337) K/mm3 MPV 10.0 (9.4-12.3) fl Neutrophils % (Manual) 56 (40-60) % Band Neutrophils % 1 (0-10) % Lymphocytes % (Manual) 35 (20-40) % Atypical Lymphs % 0 % Monocytes % (Manual) 6 (2-10) % Eosinophils % (Manual) 2 (0.8-7.0) % Basophils % (Manual) 0 L (0.2-1.2) Platelet Estimate Adequate RBC Morph Comment Normal Sodium 135 L (136-145) mEq/L Potassium 4.1 (3.5-5.1) mEq/L Chloride 101 (98-107) mEq/L Carbon Dioxide 21 (21-32) mEq/L Anion Gap 17.1 H (5-15) BUN 35 H (7-18) mg/dL Creatinine 3.1 H D (0.7-1.3) mg/dL Est Cr Clr Drug Dosing 35.42 mL/min Estimated GFR (MDRD) 23 (>60) mL/min BUN/Creatinine Ratio 11.3 L (14-18) Glucose 118 H (74-106) mg/dL POC Glucose 102 (70-105) mg/dL Lactic Acid (0.4-2.0) mmol/L Calcium 9.2 (8.5-10.1) mg/dL Magnesium 2.3 (1.8-2.4) mg/dl Total Bilirubin 0.5 (0.2-1.0) mg/dL AST 24 (15-37) U/L ALT 49 (16-63) U/L Alkaline Phosphatase 56 (46-116) U/L Troponin I (0.00-0.056) ng/mL C-Reactive Protein (<1.0) mg/dL Total Protein 8.0 (6.4-8.2) g/dl Albumin 4.1 (3.4-5.0) g/dl Globulin 3.9 gm/dL Albumin/Globulin Ratio 1.1 (1-2) TSH 3rd Generation 27.623 H (0.358-3.74) uIU/mL Urine Color (Yellow) Urine Appearance (Clear) Urine pH (5.0-8.0) Ur Specific [place] (1.005-1.030) Urine Protein (Negative) Urine Glucose (UA) (Negative) Urine Ketones (Negative) Urine Occult Blood (Negative) Urine Nitrite (Negative) Urine Bilirubin (Negative) Urine Urobilinogen (0.2-1.0) Ur Leukocyte Esterase (Negative) U Hyaline Cast (Auto) (0-5) /lpf Urine RBC (0-5) /hpf Urine WBC (0-5) /hpf Ur Squamous Epith Cells (0-5) /hpf Urine Bacteria (FEW) /hpf Urine Mucus (FEW) /hpf Salicylates (2.8-20) mg/dL Urine Opiates Screen (RKLFFI=390) Ur Buprenorphine Scrn (CUTOFF=10) Ur Oxycodone Screen (CTH3UM=565) Urine Methadone Screen (URV9WH=041) Ur Propoxyphene Screen (RPKEPE=818) Acetaminophen 0 L (10-30) ug/mL Ur Barbiturates Screen (WSQYSA=850) Ur Tricyclics Screen (XEHLOM=464) Ur Phencyclidine Scrn (CUTOFF=25) Ur Amphetamine Screen (FHJBLZ=167) U Methamphetamines Scrn (THQTSE=083) U Benzodiazepines Scrn (CKQHLY=490) U Cocaine Metab Screen (KZIZNU=908) U Marijuana (THC) Screen (CUTOFF=50) Ethyl Alcohol 0.00 (0.00) gm% COVID-19 (GRACIELA) (NEGATIVE) 06/14/20 06/14/20 06/14/20 Range/Units 21:25 22:20 23:00 WBC (4.23-9.07) K/mm3 RBC (4.63-6.08) M/mm3 Hgb (13.7-17.5) gm/dl Hct (40.1-51.0) % MCV (79.0-92.2) fl MCH (25.7-32.2) pg MCHC (32.2-35.5) g/dl RDW Std Deviation (35.1-43.9) fL Plt Count (163-337) K/mm3 MPV (9.4-12.3) fl Neutrophils % (Manual) (40-60) % Band Neutrophils % (0-10) % Lymphocytes % (Manual) (20-40) % Atypical Lymphs % % Monocytes % (Manual) (2-10) % Eosinophils % (Manual) (0.8-7.0) % Basophils % (Manual) (0.2-1.2) Platelet Estimate RBC Morph Comment Sodium (136-145) mEq/L Potassium (3.5-5.1) mEq/L Chloride (98-107) mEq/L Carbon Dioxide (21-32) mEq/L Anion Gap (5-15) BUN (7-18) mg/dL Creatinine (0.7-1.3) mg/dL Est Cr Clr Drug Dosing mL/min Estimated GFR (MDRD) (>60) mL/min BUN/Creatinine Ratio (14-18) Glucose (74-106) mg/dL POC Glucose (70-105) mg/dL Lactic Acid (0.4-2.0) mmol/L Calcium (8.5-10.1) mg/dL Magnesium (1.8-2.4) mg/dl Total Bilirubin (0.2-1.0) mg/dL AST (15-37) U/L ALT (16-63) U/L Alkaline Phosphatase (46-116) U/L Troponin I (0.00-0.056) ng/mL C-Reactive Protein (<1.0) mg/dL Total Protein (6.4-8.2) g/dl Albumin (3.4-5.0) g/dl Globulin gm/dL Albumin/Globulin Ratio (1-2) TSH 3rd Generation (0.358-3.74) uIU/mL Urine Color (Yellow) Urine Appearance (Clear) Urine pH (5.0-8.0) Ur Specific [place] (1.005-1.030) Urine Protein (Negative) Urine Glucose (UA) (Negative) Urine Ketones (Negative) Urine Occult Blood (Negative) Urine Nitrite (Negative) Urine Bilirubin (Negative) Urine Urobilinogen (0.2-1.0) Ur Leukocyte Esterase (Negative) U Hyaline Cast (Auto) (0-5) /lpf Urine RBC (0-5) /hpf Urine WBC (0-5) /hpf Ur Squamous Epith Cells (0-5) /hpf Urine Bacteria (FEW) /hpf Urine Mucus (FEW) /hpf Salicylates 0.7 L (2.8-20) mg/dL Urine Opiates Screen Negative (AEQGPS=478) Ur Buprenorphine Scrn Negative (CUTOFF=10) Ur Oxycodone Screen Negative (BBE8VT=813) Urine Methadone Screen Negative (XYL2IR=330) Ur Propoxyphene Screen Negative (VFRUCS=733) Acetaminophen (10-30) ug/mL Ur Barbiturates Screen Negative (USGNSI=691) Ur Tricyclics Screen Presumptive positive H (XGLYHX=326) Ur Phencyclidine Scrn Negative (CUTOFF=25) Ur Amphetamine Screen Negative (OETFFI=229) U Methamphetamines Scrn Negative (BEMMPZ=196) U Benzodiazepines Scrn Negative (NZAAUB=305) U Cocaine Metab Screen Negative (XWRQAX=911) U Marijuana (THC) Screen Negative (CUTOFF=50) Ethyl Alcohol (0.00) gm% COVID-19 (GRACIELA) Negative (NEGATIVE) 06/14/20 06/14/20 06/14/20 Range/Units 23:05 23:35 23:35 WBC (4.23-9.07) K/mm3 RBC (4.63-6.08) M/mm3 Hgb (13.7-17.5) gm/dl Hct (40.1-51.0) % MCV (79.0-92.2) fl MCH (25.7-32.2) pg MCHC (32.2-35.5) g/dl RDW Std Deviation (35.1-43.9) fL Plt Count (163-337) K/mm3 MPV (9.4-12.3) fl Neutrophils % (Manual) (40-60) % Band Neutrophils % (0-10) % Lymphocytes % (Manual) (20-40) % Atypical Lymphs % % Monocytes % (Manual) (2-10) % Eosinophils % (Manual) (0.8-7.0) % Basophils % (Manual) (0.2-1.2) Platelet Estimate RBC Morph Comment Sodium (136-145) mEq/L Potassium (3.5-5.1) mEq/L Chloride (98-107) mEq/L Carbon Dioxide (21-32) mEq/L Anion Gap (5-15) BUN (7-18) mg/dL Creatinine (0.7-1.3) mg/dL Est Cr Clr Drug Dosing mL/min Estimated GFR (MDRD) (>60) mL/min BUN/Creatinine Ratio (14-18) Glucose (74-106) mg/dL POC Glucose (70-105) mg/dL Lactic Acid 1.2 (0.4-2.0) mmol/L Calcium (8.5-10.1) mg/dL Magnesium (1.8-2.4) mg/dl Total Bilirubin (0.2-1.0) mg/dL AST (15-37) U/L ALT (16-63) U/L Alkaline Phosphatase (46-116) U/L Troponin I < 0.017 (0.00-0.056) ng/mL C-Reactive Protein 3.5 H* (<1.0) mg/dL Total Protein (6.4-8.2) g/dl Albumin (3.4-5.0) g/dl Globulin gm/dL Albumin/Globulin Ratio (1-2) TSH 3rd Generation (0.358-3.74) uIU/mL Urine Color Yellow (Yellow) Urine Appearance Clear (Clear) Urine pH 6.0 (5.0-8.0) Ur Specific [place] 1.020 (1.005-1.030) Urine Protein Negative (Negative) Urine Glucose (UA) Negative (Negative) Urine Ketones 1+ H (Negative) Urine Occult Blood Negative (Negative) Urine Nitrite Negative (Negative) Urine Bilirubin Negative (Negative) Urine Urobilinogen 0.2 (0.2-1.0) Ur Leukocyte Esterase Negative (Negative) U Hyaline Cast (Auto) 0-5 (0-5) /lpf Urine RBC Not seen (0-5) /hpf Urine WBC Not seen (0-5) /hpf Ur Squamous Epith Cells 5-10 H (0-5) /hpf Urine Bacteria Not seen (FEW) /hpf Urine Mucus Not seen (FEW) /hpf Salicylates (2.8-20) mg/dL Urine Opiates Screen (VCEGUE=757) Ur Buprenorphine Scrn (CUTOFF=10) Ur Oxycodone Screen (JLC7HU=717) Urine Methadone Screen (IOG0BC=465) Ur Propoxyphene Screen (DMCVLE=267) Acetaminophen (10-30) ug/mL Ur Barbiturates Screen (GBZUTF=149) Ur Tricyclics Screen (WAHCLG=203) Ur Phencyclidine Scrn (CUTOFF=25) Ur Amphetamine Screen (QTBPOY=508) U Methamphetamines Scrn (SAYKEB=613) U Benzodiazepines Scrn (MHTJYR=966) U Cocaine Metab Screen (PHZITE=451) U Marijuana (THC) Screen (CUTOFF=50) Ethyl Alcohol (0.00) gm% COVID-19 (GRACIELA) (NEGATIVE) Medications Generic Name Dose Route Start Last Admin Trade Name Freq PRN Reason Stop Dose Admin Sodium Bicarbonate 50 meq/ 1,050 mls @ 999 mls/hr 06/15/20 00:30 06/15/20 00:42 Sodium Chloride IV 06/15/20 01:33 999 mls/hr ONETIME ONE Administration Sodium Bicarbonate 150 meq/ 1,150 mls @ 150 mls/hr 06/15/20 01:05 Dextrose/Water IV 06/15/20 08:44 ONETIME ONE Discontinued Medications Generic Name Dose Route Start Last Admin Trade Name Freq PRN Reason Stop Dose Admin Sodium Chloride 1,000 mls @ 999 mls/hr 06/14/20 21:24 06/14/20 21:41 Normal Saline IV 06/14/20 22:24 999 mls/hr ONETIME ONE Administration Lactated Ringer's 1,000 mls @ 999 mls/hr 06/14/20 22:41 06/14/20 22:57 Ringers, Lactated IV 06/14/20 23:41 999 mls/hr .BOLUS ONE Administration Norepinephrine Bitartrate 4 mg 250 mls @ 18.75 mls/hr 06/14/20 23:45 06/15/20 00:43 / Dextrose/Water IV 6 mcg/min TITRATE ARNULFO 22.5 mls/hr Administration Protocol 5 MCG/MIN Dextrose/Water Confirm 06/15/20 01:09 Dextrose 5% In Water Administered 06/15/20 01:10 Dose 1,000 mls @ as directed .ROUTE .STK-MED ONE Sodium Bicarbonate Confirm 06/15/20 00:31 Sodium Bicarbonate 8.4% Administered 06/15/20 00:32 Dose 50 meq .ROUTE .STK-MED ONE Sodium Bicarbonate Confirm 06/15/20 01:09 Sodium Bicarbonate 8.4% Administered 06/15/20 01:10 Dose 50 meq .ROUTE .STK-MED ONE Medical Clearance: 06/14/20 21:29 As above, the patient was brought by EMS, who were called by the patient's due to paranoia. Upon arrival to the ED, the patient is found to be hypotensive, tachycardic, and diaphoretic. When asked if he took any medications, he states only his trazodone, but does not say how much. Since the patient has a well-documented history of at least 7 prior suicide attempts, all by overdose, it is presumed at this time that he has attempted suicide again by overdose. I have ordered a work-up that includes blood work, a urine drug screen, an ECG, and a test for the SARS-CoV-2 virus. In the meantime, the patient will be given a 1 L bolus of IV fluid. 06/14/20 21:33 I went to check on the patient, finding him telling Christina WILSON and Chela WILSON that he had the right to refuse treatment. Since I am suspecting that he attempted suicide, I will place him under 24-hour hold at this time. 06/14/20 22:42 Following 1 L of NS, the patient's BP is now 97/57. I have ordered a second 1 L bolus of LR. 06/14/20 22:58 The patient's CBC is remarkable for WBC count mildly elevated at 10.99, but with only 1% bandemia. His platelets are mildly elevated at 385,000, with the remainder of his CBC being unremarkable. His CMP is remarkable for a sodium slightly depressed at 135, and an anion gap slightly elevated at 17.1, but with a bicarbonate normal at 21. His BUN/Cr are elevated at 35/3.1, and his blood glucose was slightly elevated at 118, with the remainder of his CMP being unremarkable. His magnesium level is within normal limits at 2.3. His TSH is substantially elevated at 27.623. His acetaminophen level is 0. His salicylate level is within normal limits at 0.7. His EtOH level is 0.00. His test for the SARS-CoV-2 virus is negative. The patient has not yet provided a urine sample for the urine drug screen. Reviewing prior labs, I see that the patient's BUN/Cr was 17/1.6 on 05/03/2020, and normal at 12/1.1 on 12/05/2019. 06/14/20 23:06 Notified by Chela WILSON that she required a urine sample by clean-catch. Since the patient has been hypotensive, I added a urinalysis. 06/14/20 23:15 The patient's BP is now up to 121/76, with a HR of 66. Despite his improvement, I do not believe it is safe to say that he is medically cleared, and will therefore need to be admitted to the hospital. Unfortunately, we are currently on diversion, with no ICU beds available, therefore the patient will need to be transferred to an outside facility. I am told that [facility] is also on diversion, but that there may be beds at [facility]. I suspect that the patient's hypotension is related to drug ingestion in a suicide attempt, and at this time I do not suspect a medical or infectious cause, however, to rule out such possibilities, I have added a lactic acid level, CRP, troponin, 2 sets of blood cultures, and a portable chest x-ray. 06/14/20 23:31 As anticipated, the patient's BP has continued to fluctuate, currently 90/61 with a HR of 103 bpm. He is still receiving the second IV fluid bolus. 06/14/20 23:44 Portable chest radiograph appears to be grossly unremarkable. Poor inspiratory effort. The cardiac silhouette is within normal limits. No pulmonary vascular congestion. No pleural effusions. No focal infiltrate. No pneumothorax. Formal read per the Radiologist pending. 06/14/20 23:51 The patient's urinalysis is unremarkable. His urine drug screen is positive for tricyclic antidepressants only, and is otherwise negative. His lactic acid level, CRP, and troponin are still pending. 06/15/20 00:00 Following a second liter of IV fluid, the patient's BP is currently 85/49, with a MAP of 60 and a HR of 98. The patient's medication list does not include a tricyclic antidepressant. None of his listed home medications are known to cause a false-positive tricyclic antidepressant on a urine drug screen however, I suspect that the patient is on an unlisted tricyclic antidepressant, leading to the positive urine drug screen. Because of his symptoms of hypotension, tachycardia, delirium, and a slightly dilated pupils that poorly to light, I am concerned that the patient may be suffering from a tricyclic antidepressant overdose. Speaking against that would be the patient's diaphoresis (one would expect the patient to be dry with a TCA overdose), and his normal QTc on his ECG. 06/15/20 00:15 In order to treat a TCA OD, I have ordered 50 mEq NAHCO3 in 1 L of 1/2 NS, to be run at 999 ml/h. I discussed this with the pharmacist, who will make sure that the correct solution is made, since there is no direct way to order that solution in the computer. Since the patient's BP is currently 82/51, I will also start the patient on a low dose of Levophed at 5 mcg/min, and titrate up if necessary. 06/15/20 00:43 The patient's lactic acid level is within normal limits at 1.2. His CRP is mildly elevated at 3.5. His troponin is undetectably low. 06/15/20 00:53 The portable chest x-ray images were pushed to [facility] at 23:53. Case discussed with Kvng at [facility] at 00:45. He confirmed that they have an ICU bed available. He then spoke to the Account Development Specialist, Dr. Terrell, returning to the phone at 00:53. They currently have a patient in the operating room at this time, who may require the ICU bed. They will know in about 15 minutes, and will call us back at that time. 06/15/20 01:05 Called back by Kvng at 00:57. The ICU bed is available. Case then discussed with Dr. Terrell at 00:58. He recommended that we switch the patient's IV fluid from the current 1 amp of sodium bicarbonate in 1/2 NS to 3 amps of bicarbonate in D5W, at 150 mL/h. He recommended that we continue the norepinephrine drip, presently. He accepted the patient for admission to their ICU. The [place] ambulance crew is already here. The patient's current BP is 108/64. Departure - Departure Time of Disposition: 01:08 Disposition: DC/Tfer to Acute Hospital 02 Condition: Fair Clinical Impression: Overdose of tricyclic antidepressants, Acute on chronic renal failure, Hypotension, Elevated TSH - Discharge Information *PRESCRIPTION DRUG MONITORING PROGRAM REVIEWED*: Not Applicable *COPY OF PRESCRIPTION DRUG MONITORING REPORT IN PATIENT INGRIS: Not Applicable Referrals: Alanna Casiano NP [Primary Care Provider] - Free,Indira Leary MD [Ordering Only Provider] - Forms: ED Department Discharge Sepsis Event Note (ED) - Evaluation Sepsis Screening Result: No Definite Risk - Focused Exam Vital Signs: Vital Signs Temp Pulse Resp BP Pulse Ox 06/15/20 00:40 100 21 H 90/60 96 06/14/20 21:08 36.8 C 115 H 20 86/68 L 95 - My Orders Last 24 Hours: My Active Orders 06/14/20 21:23 EKG Documentation Completion [RC] STAT 06/14/20 23:14 Chest 1V Frontal [CR] Stat Blood Culture x2 Reflex Set [OM.PC] Stat 06/14/20 23:35 CULTURE BLOOD [BC] Stat 06/14/20 23:50 CULTURE BLOOD [BC] Stat 06/15/20 00:30 Sodium Bicarbonate [Sodium Bicarbonate 8.4%] 50 meq Sodium Chloride 0.45% 1,000 ml IV ONETIME 06/15/20 01:05 Sodium Bicarbonate [Sodium Bicarbonate 8.4%] 150 meq Dextrose 5% in Water 1,000 ml IV ONETIME - Assessment/Plan Last 24 Hours: My Active Orders 06/14/20 21:23 EKG Documentation Completion [RC] STAT 06/14/20 23:14 Chest 1V Frontal [CR] Stat Blood Culture x2 Reflex Set [OM.PC] Stat 06/14/20 23:35 CULTURE BLOOD [BC] Stat 06/14/20 23:50 CULTURE BLOOD [BC] Stat 06/15/20 00:30 Sodium Bicarbonate [Sodium Bicarbonate 8.4%] 50 meq Sodium Chloride 0.45% 1,000 ml IV ONETIME 06/15/20 01:05 Sodium Bicarbonate [Sodium Bicarbonate 8.4%] 150 meq Dextrose 5% in Water 1,000 ml IV ONETIME
[2020-06-14] MEDS ORDERED: Lactated Ringers 1,000 ML IV ONE (22:41)
[2020-06-15] MEDS ORDERED: Lactated Ringers 1,000 ML IV ONE
[2020-06-15] MEDS ORDERED: Sodium Bicarbonate 8.4% 50 MEQ/50 ML Syringe IVPUSH STA (00:08)
[2020-06-15] MEDS: Norepinephrine 4 MG in Dextrose 5% in Water 246 ML IV SCH ×4 (00:18→00:43)
[2020-06-15] MEDS ORDERED: Sodium Bicarbonate 50 MEQ in Sodium Chloride 0.45% 1,000 ML IV ONE (00:30)
[2020-06-15] MEDS ORDERED: Sodium Bicarbonate 8.4% 50 MEQ/50 ML Syringe ONE ×2 (00:31→01:09)
[2020-06-15 00:44] VITALS: BP 90/60; PULSE 100
[2020-06-15] MEDS ORDERED: Sodium Bicarbonate 150 MEQ in Dextrose 5% in Water 1,000 ML IV ONE ×2 (01:05)
[2020-06-15] MEDS ORDERED: Dextrose 5% in Water 1,000 ML ONE (01:09)
--- NOTE | 2020-06-18 12:16 | CR ---
Chest: Portable view of the chest was obtained. Comparison: Prior chest x-ray of 12/04/19. Heart size and mediastinum are normal. Lungs are clear with no acute parenchymal change. Bony structures are grossly intact. Impression: 1. Nothing acute is seen on portable chest x-ray. Diagnostic code #1 This report was dictated in MDT
== END 2020-06-15 02:00 ==
LOC: JD.ED 21:06
DX: T43.011A Poisoning by tricyclic antidepressants, accidental (unintentional), initial encounter (principal); I12.9 Hypertensive chronic kidney disease with stage 1 through stage 4 chronic kidney disease, or unspecified chronic kidney disease; N18.9 Chronic kidney disease, unspecified; N17.9 Acute kidney failure, unspecified; I95.9 Hypotension, unspecified; R94.6 Abnormal results of thyroid function studies; R00.0 Tachycardia, unspecified; F41.9 Anxiety disorder, unspecified; F32.9 Major depressive disorder, single episode, unspecified; E66.9 Obesity, unspecified; Z68.41 Body mass index [BMI] 40.0-44.9, adult; Z20.828 Contact with and (suspected) exposure to other viral communicable diseases; Z87.891 Personal history of nicotine dependence; Z88.1 Allergy status to other antibiotic agents; Z88.0 Allergy status to penicillin; Z79.899 Other long term (current) drug therapy
CPT/HCPCS: 36415; 71045; 80053; 80306; 80307; 81001; 82962; 83605; 83735; 84443; 84484; 85007; 85027; 86140; 87040; 93005; 96361; 96365; 96368; 96376; 99285; J7030; J7060; J7120; U0002; 93010

== ENCOUNTER 2020-06-17 17:52 | Emergency (ER) | payer MEDICARE, OTHER ==
[2020-06-17 18:30] VITALS: BP 141/51; PULSE 105
--- NOTE | 2020-06-17 19:11 | EDM.PDOCBH ---
ED HPI GENERAL MEDICAL PROBLEM - General Chief Complaint: Behavioral/Psych Stated Complaint: SUICIDIAL AND WANTS TO TAKE ALL HIS MEDS Time Seen by Provider: 06/17/20 18:51 Source of Information: Reports: Patient History Limitations: Reports: No Limitations - History of Present Illness INITIAL COMMENTS - FREE TEXT/NARRATIVE: Patient is a 34-year-old male who presents to the emergency department with complaints of hallucinations with suicidal ideation. Patient has a known history of schizophrenia. He was recently seen in this emergency department 3 nights ago foracute psychosis with a possible overdose on trazadone. He was sent to the ICU at [facility] in [place]. States he was discharged this morning. He states that at that time he had asked to go to the psych floor, however they told him to follow-up with his psychiatrist, Dr. Braswell and discharged him home. States since he got home he has been hearing voices and states that he has had thoughts of overdosing on this medications. The voices he is hearing are telling him "things to make him feel bad about himself ". He denies taking any medications with the intent of overdosing this evening. States he wants his medications changed to make the hallucinations go away. - Related Data Allergies Allergy/AdvReac Type Severity Reaction Status Date / Time cefaclor [From [facility]] Allergy Intermediate Rash Verified 06/17/20 18:30 Penicillins Allergy Intermediate Rash Verified 06/17/20 18:30 Home Meds: Home Meds Levothyroxine 150 mcg PO ACBREAKFAST 10/10/19 [History] Venlafaxine [Effexor XR] 225 mg PO DAILY 10/10/19 [History] lisinopriL [Lisinopril] 40 mg PO DAILY 10/10/19 [History] buPROPion [Wellbutrin SR] 300 mg PO DAILY 11/10/19 [History] clonazePAM [Clonazepam] 1 mg PO BID 11/26/19 [History] traZODone HCl [Trazodone HCl] 150 mg PO BEDTIME 12/01/19 [History] Past Medical History HEENT History: Reports: Impaired Vision Other HEENT History: wears eyeglasses Cardiovascular History: Reports: Hypertension Respiratory History: Reports: None Gastrointestinal History: Reports: Gastritis Genitourinary History: Reports: None Musculoskeletal History: Reports: Fibromyalgia Neurological History: Reports: Headaches, Chronic Psychiatric History: Reports: Anxiety, Depression, Psych Hospitalization(s), Schizophrenia, Suicide Attempt Endocrine/Metabolic History: Reports: Hypothyroidism, Obesity/BMI 30+ Hematologic History: Reports: None Immunologic History: Reports: None Oncologic (Cancer) History: Reports: None Dermatologic History: Reports: Other (See Below) Other Dermatologic History: yeast infections - Infectious Disease History Infectious Disease History: Reports: None - Past Surgical History HEENT Surgical History: Reports: Myringotomy w Tube(s), Naso-Sinus Surgery, Tonsillectomy Male Surgical History: Reports: None Social & Family History - Family History Family Medical History: Noncontributory Cardiac: Reports: CAD Oncologic: Reports: Lung, Ovarian, Other (See Below) Other Oncologic Family History: tongue - Caffeine Use Caffeine Use: Reports: Coffee, Energy Drinks, Soda Other Caffeine Use: aspercane thru diet soda Caffeine Use Comment: unable to obtain - Living Situation & Occupation Living situation: Reports: , with Spouse, with Family (1 child) Occupation: Unemployed ED ROS GENERAL - Review of Systems Review Of Systems: See Below Constitutional: Reports: No Symptoms. Denies: Fever, Chills HEENT: Reports: No Symptoms Respiratory: Reports: No Symptoms Cardiovascular: Reports: No Symptoms Endocrine: Reports: No Symptoms GI/Abdominal: Reports: No Symptoms : Reports: No Symptoms Musculoskeletal: Reports: No Symptoms Skin: Reports: No Symptoms Neurological: Reports: No Symptoms Psychiatric: Reports: Agitation, Depression, Hallucinations, Suicidal Ideation Hematologic/Lymphatic: Reports: No Symptoms Immunologic: Reports: No Symptoms ED EXAM, BEHAVIORAL HEALTH - Physical Exam Exam: See Below Exam Limited By: No Limitations General Appearance: Alert, WD/WN, No Apparent Distress Respiratory/Chest: No Respiratory Distress, Lungs Clear, Normal Breath Sounds, No Accessory Muscle Use, Chest Non-Tender Cardiovascular: Normal Peripheral Pulses, Regular Rate, Rhythm, No Edema, No Gallop, No JVD, No Murmur, No Rub Neurological: Alert, Normal Mood/Affect, CN II-XII Intact, Normal Cognition, Normal Gait, Normal Reflexes, No Motor/Sensory Deficits, Oriented x 3 Psychiatric: Alert, Oriented, Flat Affect, Poor Eye Contact, Suicidal Thoughts, Auditory Hallucinations, Visual Hallucinations, Paranoid Thoughts EKG INTERPRETATION EKG Date: 06/17/20 Time: 19:03 Rhythm: NSR Rate (Beats/Min): 107 [place]: Normal P-Wave: Present QRS: Normal ST-T: Normal QT: Prolonged COURSE, BEHAVIORAL HEALTH COMP - Course Vital Signs: Last Vital Signs Temp 97 F 06/17/20 18:28 Pulse 105 H 06/17/20 18:28 Resp 16 06/17/20 18:28 BP 141/51 H 06/17/20 18:28 Pulse Ox 99 06/17/20 18:28 Orders, Labs, Meds: Laboratory Tests 06/17/20 06/17/20 06/17/20 Range/Units 18:45 18:55 18:55 WBC 8.54 (4.23-9.07) K/mm3 RBC 4.60 L (4.63-6.08) M/mm3 Hgb 13.2 L D (13.7-17.5) gm/dl Hct 39.7 L (40.1-51.0) % MCV 86.3 (79.0-92.2) fl MCH 28.7 (25.7-32.2) pg MCHC 33.2 (32.2-35.5) g/dl RDW Std Deviation 39.3 (35.1-43.9) fL Plt Count 262 D (163-337) K/mm3 MPV 9.8 (9.4-12.3) fl Neutrophils % (Manual) 73 H (40-60) % Band Neutrophils % 0 (0-10) % Lymphocytes % (Manual) 22 (20-40) % Atypical Lymphs % 0 % Monocytes % (Manual) 5 (2-10) % Eosinophils % (Manual) 0 L (0.8-7.0) % Basophils % (Manual) 0 L (0.2-1.2) Platelet Estimate Adequate RBC Morph Comment Normal Sodium 139 (136-145) mEq/L Potassium 4.0 (3.5-5.1) mEq/L Chloride 100 (98-107) mEq/L Carbon Dioxide 28 (21-32) mEq/L Anion Gap 15.0 (5-15) BUN 13 (7-18) mg/dL Creatinine 1.3 D (0.7-1.3) mg/dL Est Cr Clr Drug Dosing TNP Estimated GFR (MDRD) > 60 (>60) mL/min BUN/Creatinine Ratio 10.0 L (14-18) Glucose 81 (74-106) mg/dL Calcium 9.5 (8.5-10.1) mg/dL Total Bilirubin 0.3 (0.2-1.0) mg/dL AST 19 (15-37) U/L ALT 42 (16-63) U/L Alkaline Phosphatase 64 (46-116) U/L Total Protein 7.8 (6.4-8.2) g/dl Albumin 3.9 (3.4-5.0) g/dl Globulin 3.9 gm/dL Albumin/Globulin Ratio 1.0 (1-2) TSH 3rd Generation 1.726 (0.358-3.74) uIU/mL Salicylates (2.8-20) mg/dL Urine Opiates Screen Negative (MFVHMC=748) Ur Buprenorphine Scrn Negative (CUTOFF=10) Ur Oxycodone Screen Negative (WBD4DN=127) Urine Methadone Screen Negative (QLI2HM=315) Ur Propoxyphene Screen Negative (ZQQBRF=463) Acetaminophen 0 L (10-30) ug/mL Ur Barbiturates Screen Negative (FVGBND=420) Ur Tricyclics Screen Presumptive positive H (XXQFNS=916) Ur Phencyclidine Scrn Negative (CUTOFF=25) Ur Amphetamine Screen Negative (JYTHQG=798) U Methamphetamines Scrn Negative (UAZFZV=078) U Benzodiazepines Scrn Presumptive positive H (JQXKDT=639) U Cocaine Metab Screen Negative (JRMJAM=330) U Marijuana (THC) Screen Negative (CUTOFF=50) Ethyl Alcohol 0.00 (0.00) gm% COVID-19 (GRACIELA) (NEGATIVE) 06/17/20 06/17/20 Range/Units 18:55 20:22 WBC (4.23-9.07) K/mm3 RBC (4.63-6.08) M/mm3 Hgb (13.7-17.5) gm/dl Hct (40.1-51.0) % MCV (79.0-92.2) fl MCH (25.7-32.2) pg MCHC (32.2-35.5) g/dl RDW Std Deviation (35.1-43.9) fL Plt Count (163-337) K/mm3 MPV (9.4-12.3) fl Neutrophils % (Manual) (40-60) % Band Neutrophils % (0-10) % Lymphocytes % (Manual) (20-40) % Atypical Lymphs % % Monocytes % (Manual) (2-10) % Eosinophils % (Manual) (0.8-7.0) % Basophils % (Manual) (0.2-1.2) Platelet Estimate RBC Morph Comment Sodium (136-145) mEq/L Potassium (3.5-5.1) mEq/L Chloride (98-107) mEq/L Carbon Dioxide (21-32) mEq/L Anion Gap (5-15) BUN (7-18) mg/dL Creatinine (0.7-1.3) mg/dL Est Cr Clr Drug Dosing Estimated GFR (MDRD) (>60) mL/min BUN/Creatinine Ratio (14-18) Glucose (74-106) mg/dL Calcium (8.5-10.1) mg/dL Total Bilirubin (0.2-1.0) mg/dL AST (15-37) U/L ALT (16-63) U/L Alkaline Phosphatase (46-116) U/L Total Protein (6.4-8.2) g/dl Albumin (3.4-5.0) g/dl Globulin gm/dL Albumin/Globulin Ratio (1-2) TSH 3rd Generation (0.358-3.74) uIU/mL Salicylates 1.3 L (2.8-20) mg/dL Urine Opiates Screen (LHAQAQ=520) Ur Buprenorphine Scrn (CUTOFF=10) Ur Oxycodone Screen (OLO3ZN=923) Urine Methadone Screen (WMY3VT=374) Ur Propoxyphene Screen (NWGZVE=585) Acetaminophen (10-30) ug/mL Ur Barbiturates Screen (QOGFVH=872) Ur Tricyclics Screen (CUDUHN=703) Ur Phencyclidine Scrn (CUTOFF=25) Ur Amphetamine Screen (GKHSCX=003) U Methamphetamines Scrn (LZQOFG=151) U Benzodiazepines Scrn (AHALRN=131) U Cocaine Metab Screen (GDQFAH=492) U Marijuana (THC) Screen (CUTOFF=50) Ethyl Alcohol (0.00) gm% COVID-19 (GRACIELA) Negative (NEGATIVE) Medications Discontinued Medications Generic Name Dose Route Start Last Admin Trade Name Freq PRN Reason Stop Dose Admin Clonazepam 0.5 mg 06/17/20 21:11 06/17/20 21:23 Klonopin PO 06/17/20 21:12 0.5 mg ONETIME ONE Administration Olanzapine 5 mg 06/17/20 21:10 06/17/20 21:23 Zyprexa PO 06/17/20 21:11 5 mg ONETIME ONE Administration Medical Clearance: Patient's work-up was overall unremarkable with the exception of his urine drug screen being positive for tricyclics and benzodiazepines which are likely related to his prescription medications. Called and spoke with Dr. Paz, the on-call psychiatrist at [facility] in [place]. She was familiar with his case and did see him while he was in the hospital in [place]. She states that he is at his baseline which is chronically delusional. He has been admitted to [facility] in [place] in the past and refuses to partake in the therapies and she does not feel that a readmission to [facility] would be beneficial to him. She recommended that he follow-up with [facility] and his psychiatrist, Dr. Braswell. Called and spoke to Olga Lidia the on-call hoop expander at [facility]. Unfortunately do not have beds available, however when I discussed going to the crisis bed with the patient, he states that he would like to go home as opposed to go to the crisis bed. I discussed that he expressed thoughts of overdosing on his medications. He states that he lied and did not have plans of hurting himself. Stated that the only reason he said that was because its the only way that he gets help is by threatening to harm himself although he does not plan to overdose on medications. Discussed with patient that once he makes threats of self-harm we take it seriously. He continued to express that he does not want to harm himseld and that he would like to go home. I did call back and speak with Dr. Paz the psychiatrist at [facility]. She continues to maintain that admitting him to [facility] would be of no benefit to him. 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 She would like him to follow-up with [facility] tomorrow. Discussed with this patient and he is in agreement. He continues to deny suicidal ideation or intent. He states that he wants his medications changed. but that he does not want go to [facility] in [place] and that he would rather follow-up with his psychiatrist tomorrow. We will discharg e him home. He has been provided the crisis line to [facility] and advised that if he should have thoughts of self-harm, he should return to the emergency department. Discharge instructions as documented. Departure - Departure Time of Disposition: 22:26 Disposition: Home, Self-Care 01 Condition: Good Clinical Impression: Hallucinations, Suicidal thoughts - Discharge Information *PRESCRIPTION DRUG MONITORING PROGRAM REVIEWED*: No *COPY OF PRESCRIPTION DRUG MONITORING REPORT IN PATIENT INGRIS: No Instructions: Suicidal Feelings: How to Help Yourself Referrals: Alanna Casiano SAMPLER TESTER [Primary Care Provider] - Forms: ED Department Discharge Additional Instructions: You were seen in the emergency department today for hallucinations and thoughts of self-harm; however, you then stated that you are not having thoughts of harming yourself. Your work-up was completed and found to be overall normal. We have been in contact with psychiatrist, Dr. Paz at [facility] in [place]. She does not feel that transfer to [place] would be beneficial to you at this time. She would like you to follow-up with your psychiatrist at [facility] tomorrow. Please call to schedule an appointment first thing in the morning. If you should have any thoughts of self-harm, please return to the emergency department. You may also call the [facility] crisis number at [phone]. Return to the ER as needed. Sepsis Event Note (ED) - Evaluation Sepsis Screening Result: No Definite Risk
[2020-06-17 19:33] LABS: ACETAMINOPHEN 0 ug/mL (10-30)
[2020-06-17] MEDS ORDERED: OLANZapine 5 MG Tab PO ONE (21:10)
[2020-06-17] MEDS ORDERED: ClonazePAM 0.5 MG Tab PO ONE (21:11)
== END 2020-06-17 22:37 | disposition home or self-care (01) ==
LOC: JD.ED 17:52
DX: R45.851 Suicidal ideations (principal); R44.3 Hallucinations, unspecified; Z20.828 Contact with and (suspected) exposure to other viral communicable diseases; I10 Essential (primary) hypertension; F41.9 Anxiety disorder, unspecified; F32.9 Major depressive disorder, single episode, unspecified; E03.9 Hypothyroidism, unspecified; E66.9 Obesity, unspecified; Z88.0 Allergy status to penicillin; Z88.1 Allergy status to other antibiotic agents; Z79.899 Other long term (current) drug therapy
CPT/HCPCS: 36415; 80053; 80306; 80307; 84443; 85007; 85027; 93005; 99285; A9270; U0002; 93010; 99283

== ENCOUNTER 2020-07-15 14:50 | Emergency (ER) | payer MEDICARE ==
[2020-07-15 15:05] VITALS: BP 143/85; PULSE 102
[2020-07-15] MEDS ORDERED: OLANZapine 5 MG Tab PO ONE (16:24)
--- NOTE | 2020-07-15 16:33 | EDM.PDOCBH ---
ED HPI GENERAL MEDICAL PROBLEM - General Chief Complaint: Behavioral/Psych Stated Complaint: BEHAVIORAL ISSUES Time Seen by Provider: 07/15/20 14:58 Source of Information: Reports: Patient History Limitations: Reports: No Limitations - History of Present Illness INITIAL COMMENTS - FREE TEXT/NARRATIVE: The patient presents for suicidal ideation. He has a history of schizophrenia and he says the voices are getting worse. They are negative and telling him to kill himself. He has no current plan but in the past he has overdosed. He has no fever, chills, cough, congestion, runny nose, chest pain, shortness of breath, abdominal pain, nausea or vomiting. He says he was admitted to [facility] a few weeks ago and they did some med changes and it did not seem like it was working. He had more med changes by Dr Braswell 5 days ago and it does not seem to be helping. Onset: Gradual Duration: Week(s): Severity: Moderate Improves with: Reports: None Worsens with: Reports: None Associated Symptoms: Reports: No Other Symptoms - Related Data Allergies Allergy/AdvReac Type Severity Reaction Status Date / Time cefaclor [From Ce[facility]] Allergy Intermediate Rash Verified 06/17/20 18:30 Penicillins Allergy Intermediate Rash Verified 06/17/20 18:30 Home Meds: Home Meds Levothyroxine 150 mcg PO ACBREAKFAST 10/10/19 [History] Venlafaxine [Effexor XR] 225 mg PO DAILY 10/10/19 [History] lisinopriL [Lisinopril] 40 mg PO DAILY 10/10/19 [History] buPROPion [Wellbutrin SR] 300 mg PO DAILY 11/10/19 [History] clonazePAM [Clonazepam] 1 mg PO BID 11/26/19 [History] traZODone HCl [Trazodone HCl] 150 mg PO BEDTIME 12/01/19 [History] Past Medical History HEENT History: Reports: Impaired Vision Other HEENT History: wears eyeglasses Cardiovascular History: Reports: Hypertension Respiratory History: Reports: None Gastrointestinal History: Reports: Gastritis Genitourinary History: Reports: None Musculoskeletal History: Reports: Fibromyalgia Neurological History: Reports: Headaches, Chronic Psychiatric History: Reports: Anxiety, Depression, Psych Hospitalization(s), Schizophrenia, Suicide Attempt Endocrine/Metabolic History: Reports: Hypothyroidism, Obesity/BMI 30+ Hematologic History: Reports: None Immunologic History: Reports: None Oncologic (Cancer) History: Reports: None Dermatologic History: Reports: Other (See Below) Other Dermatologic History: yeast infections - Infectious Disease History Infectious Disease History: Reports: None - Past Surgical History Head Surgeries/Procedures: Reports: None HEENT Surgical History: Reports: Myringotomy w Tube(s), Naso-Sinus Surgery, Tonsillectomy Male Surgical History: Reports: None Social & Family History - Family History Family Medical History: Noncontributory Cardiac: Reports: CAD Oncologic: Reports: Lung, Ovarian, Other (See Below) Other Oncologic Family History: tongue - Tobacco Use Smoking Status *Q: Never Smoker - Caffeine Use Caffeine Use: Reports: Coffee, Energy Drinks, Soda Other Caffeine Use: aspercane thru diet soda Caffeine Use Comment: unable to obtain - Living Situation & Occupation Living situation: Reports: , with Spouse, with Family (1 child) Occupation: Unemployed ED ROS GENERAL - Review of Systems Review Of Systems: See Below Constitutional: Reports: No Symptoms HEENT: Reports: No Symptoms Respiratory: Reports: No Symptoms Cardiovascular: Reports: No Symptoms Endocrine: Reports: No Symptoms GI/Abdominal: Reports: No Symptoms : Reports: No Symptoms Musculoskeletal: Reports: No Symptoms ED EXAM, BEHAVIORAL HEALTH - Physical Exam Exam: See Below Exam Limited By: No Limitations General Appearance: Alert, No Apparent Distress Ears: Normal External Exam Nose: Normal Inspection Head: Atraumatic, Normocephalic Neck: Normal Inspection Respiratory/Chest: No Respiratory Distress, Lungs Clear, Normal Breath Sounds Cardiovascular: Regular Rate, Rhythm, No Edema, No Murmur GI/Abdominal: Soft, Non-Tender, No Organomegaly, No Mass Extremities: Normal Inspection Neurological: Alert, No Motor/Sensory Deficits, Oriented x 3 COURSE, BEHAVIORAL HEALTH COMP - Course Vital Signs: Last Vital Signs Temp 97.8 F 07/15/20 15:00 Pulse 102 H 07/15/20 15:00 Resp 16 07/15/20 15:00 BP 143/85 H 07/15/20 15:00 Pulse Ox 97 07/15/20 15:00 Orders, Labs, Meds: Active Orders 24 hr Category Date Time Status Cardiac Monitoring [RC] . DIRECTED Care 07/15/20 15:30 Active Laboratory Tests 07/15/20 07/15/20 07/15/20 Range/Units 15:55 15:55 15:55 WBC 9.13 H (4.23-9.07) K/mm3 RBC 4.67 (4.63-6.08) M/mm3 Hgb 13.6 L (13.7-17.5) gm/dl Hct 40.2 (40.1-51.0) % MCV 86.1 (79.0-92.2) fl MCH 29.1 (25.7-32.2) pg MCHC 33.8 (32.2-35.5) g/dl RDW Std Deviation 42.5 (35.1-43.9) fL Plt Count 292 (163-337) K/mm3 MPV 9.9 (9.4-12.3) fl Neut % (Auto) 75.3 H (34.0-67.9) % Lymph % (Auto) 15.3 L (21.8-53.1) % [place] % (Auto) 7.1 (5.3-12.2) % Eos % (Auto) 1.6 (0.8-7.0) Baso % (Auto) 0.2 (0.1-1.2) % Neut # (Auto) 6.86 H (1.78-5.38) K/mm3 Lymph # (Auto) 1.40 (1.32-3.57) K/mm3 [place] # (Auto) 0.65 (0.30-0.82) K/mm3 Eos # (Auto) 0.15 (0.04-0.54) K/mm3 Baso # (Auto) 0.02 (0.01-0.08) K/mm3 Sodium 139 (136-145) mEq/L Potassium 4.2 (3.5-5.1) mEq/L Chloride 102 (98-107) mEq/L Carbon Dioxide 25 (21-32) mEq/L Anion Gap 16.2 H (5-15) BUN 12 (7-18) mg/dL Creatinine 1.3 (0.7-1.3) mg/dL Est Cr Clr Drug Dosing 84.47 mL/min Estimated GFR (MDRD) > 60 (>60) mL/min BUN/Creatinine Ratio 9.2 L (14-18) Glucose 91 (74-106) mg/dL Calcium 10.1 (8.5-10.1) mg/dL Total Bilirubin 0.2 (0.2-1.0) mg/dL AST 21 (15-37) U/L ALT 52 (16-63) U/L Alkaline Phosphatase 60 (46-116) U/L Total Protein 7.6 (6.4-8.2) g/dl Albumin 3.7 (3.4-5.0) g/dl Globulin 3.9 gm/dL Albumin/Globulin Ratio 1.0 (1-2) TSH 3rd Generation 0.960 (0.358-3.74) uIU/mL Salicylates 1.1 L (2.8-20) mg/dL Urine Opiates Screen (GYCBPS=841) Ur Buprenorphine Scrn (CUTOFF=10) Ur Oxycodone Screen (BOA5WM=372) Urine Methadone Screen (YOC7PQ=139) Ur Propoxyphene Screen (AGRSSL=587) Acetaminophen 0 L (10-30) ug/mL Ur Barbiturates Screen (VPXTTX=761) Ur Tricyclics Screen (TEOTKB=489) Ur Phencyclidine Scrn (CUTOFF=25) Ur Amphetamine Screen (VFGAHS=387) U Methamphetamines Scrn (OITEIS=942) U Benzodiazepines Scrn (MAQGBK=316) U Cocaine Metab Screen (QTSIED=385) U Marijuana (THC) Screen (CUTOFF=50) Ethyl Alcohol 0.00 (0.00) gm% SARS CoV-2 RNA Rapid GRACIELA (NEGATIVE) 07/15/20 07/15/20 Range/Units 16:00 17:04 WBC (4.23-9.07) K/mm3 RBC (4.63-6.08) M/mm3 Hgb (13.7-17.5) gm/dl Hct (40.1-51.0) % MCV (79.0-92.2) fl MCH (25.7-32.2) pg MCHC (32.2-35.5) g/dl RDW Std Deviation (35.1-43.9) fL Plt Count (163-337) K/mm3 MPV (9.4-12.3) fl Neut % (Auto) (34.0-67.9) % Lymph % (Auto) (21.8-53.1) % [place] % (Auto) (5.3-12.2) % Eos % (Auto) (0.8-7.0) Baso % (Auto) (0.1-1.2) % Neut # (Auto) (1.78-5.38) K/mm3 Lymph # (Auto) (1.32-3.57) K/mm3 [place] # (Auto) (0.30-0.82) K/mm3 Eos # (Auto) (0.04-0.54) K/mm3 Baso # (Auto) (0.01-0.08) K/mm3 Sodium (136-145) mEq/L Potassium (3.5-5.1) mEq/L Chloride (98-107) mEq/L Carbon Dioxide (21-32) mEq/L Anion Gap (5-15) BUN (7-18) mg/dL Creatinine (0.7-1.3) mg/dL Est Cr Clr Drug Dosing mL/min Estimated GFR (MDRD) (>60) mL/min BUN/Creatinine Ratio (14-18) Glucose (74-106) mg/dL Calcium (8.5-10.1) mg/dL Total Bilirubin (0.2-1.0) mg/dL AST (15-37) U/L ALT (16-63) U/L Alkaline Phosphatase (46-116) U/L Total Protein (6.4-8.2) g/dl Albumin (3.4-5.0) g/dl Globulin gm/dL Albumin/Globulin Ratio (1-2) TSH 3rd Generation (0.358-3.74) uIU/mL Salicylates (2.8-20) mg/dL Urine Opiates Screen Negative (QCLEME=546) Ur Buprenorphine Scrn Negative (CUTOFF=10) Ur Oxycodone Screen Negative (QCD0YV=670) Urine Methadone Screen Negative (TVU7FE=276) Ur Propoxyphene Screen Negative (UDHEDV=961) Acetaminophen (10-30) ug/mL Ur Barbiturates Screen Negative (RKATJI=664) Ur Tricyclics Screen Negative (MIYMPO=036) Ur Phencyclidine Scrn Negative (CUTOFF=25) Ur Amphetamine Screen Negative (TEWNDB=967) U Methamphetamines Scrn Negative (PSAOYD=462) U Benzodiazepines Scrn Negative (SKVNVS=510) U Cocaine Metab Screen Negative (UZHQZS=412) U Marijuana (THC) Screen Negative (CUTOFF=50) Ethyl Alcohol (0.00) gm% SARS CoV-2 RNA Rapid GRACIELA Negative (NEGATIVE) Medications Discontinued Medications Generic Name Dose Route Start Last Admin Trade Name Dick PRN Reason Stop Dose Admin Olanzapine 5 mg 07/15/20 16:24 07/15/20 16:35 Zyprexa PO 07/15/20 16:25 5 mg ONETIME ONE Administration Re-Assessment/Re-Exam: I have ordered labs and a UDS. His CBC and CMP look good. His TSH is normal. His salicylates and acetaminophen look good. His ETOH is 0. His UDS is negative. I called [facility] in [place] and talked with Dr Luna and he accepted the patient. He will need to go to the ER because his family will be taking him. Transportation is tuff right now. EMS cannot take him and the bread pan greaser is short staffed. I did give him a dose of zyprexa here. He said he was taken off of that because he gained about 80 pounds. Departure - Departure Time of Disposition: 18:00 Disposition: Home, Self-Care 01 Condition: Good Clinical Impression: Auditory hallucinations, Suicidal thoughts - Discharge Information Referrals: Alanna Casiano [employer]INT[employer] CIRCUIT BOARDS ROUTER [Primary Care Provider] - Forms: ED Department Discharge Additional Instructions: Go directly to [facility] they will be expecting you. Sepsis Event Note (ED) - Evaluation Sepsis Screening Result: No Definite Risk - Focused Exam Vital Signs: Vital Signs Temp Pulse Resp BP Pulse Ox 07/15/20 15:00 97.8 F 102 H 16 143/85 H 97 - My Orders Last 24 Hours: My Active Orders 07/15/20 15:30 Cardiac Monitoring [RC] . DIRECTED - Assessment/Plan Last 24 Hours: My Active Orders 07/15/20 15:30 Cardiac Monitoring [RC] . DIRECTED
[2020-07-15 16:34] LABS: ACETAMINOPHEN 0 ug/mL (10-30)
== END 2020-07-15 18:10 | disposition home or self-care (01) ==
LOC: JD.ED 14:50
DX: R44.0 Auditory hallucinations (principal); R45.851 Suicidal ideations; I10 Essential (primary) hypertension; F41.9 Anxiety disorder, unspecified; F32.9 Major depressive disorder, single episode, unspecified; E66.9 Obesity, unspecified; E03.9 Hypothyroidism, unspecified; Z20.828 Contact with and (suspected) exposure to other viral communicable diseases; Z88.0 Allergy status to penicillin; Z88.1 Allergy status to other antibiotic agents; Z79.899 Other long term (current) drug therapy; Z68.41 Body mass index [BMI] 40.0-44.9, adult
CPT/HCPCS: 36415; 80053; 80306; 80307; 84443; 85025; 99284; A9270; U0002

== ENCOUNTER 2020-09-29 04:02 | Emergency (ER) | payer MEDICARE ==
[2020-09-29 04:16] VITALS: BP 145/93; PULSE 99
--- NOTE | 2020-09-29 05:07 | EDM.PDOCBH ---
ED HPI GENERAL MEDICAL PROBLEM - General Chief Complaint: Behavioral/Psych Stated Complaint: TRYING TO GET OFF MEDS MENTAL EVALUATION Time Seen by Provider: 09/29/20 04:50 Source of Information: Reports: Patient History Limitations: Reports: No Limitations - History of Present Illness INITIAL COMMENTS - FREE TEXT/NARRATIVE: This is a 34-year-old male. He has a history of depression, schizophrenia, anxiety and suicidal thoughts. He comes this morning because he wants to get off his clonazepam. He states he used to be on 1 mg 3 times a day and they weaned him down to 0.25 mg twice a day. The reason he wants to get off the clonazepam because it makes him sleepy and tired. He also takes Effexor and Wellbutrin which have a similar problem of making you tired. We talked about other options such as Ativan or Xanax but he says they also make him tired. I spoke to him about hydroxyzine which he has never tried in the past and perhaps we can put him on the hydroxyzine as we wean him off the clonazepam. The reason he is worried about stopping the clonazepam is because he will get suicidal thoughts. He says he is got a few suicidal thoughts but no plan and he does not intend to hurt himself. He says he wants to be hospitalized to be weaned off his medications but I explained to him that option is not available just to wean him off his medications or to start new medications. Headache Pain Score (Numeric/FACES): 6 - Related Data Allergies Allergy/AdvReac Type Severity Reaction Status Date / Time cefaclor [From [facility]] Allergy Intermediate Rash Verified 09/29/20 04:16 Penicillins Allergy Intermediate Rash Verified 09/29/20 04:16 Home Meds: Home Meds Levothyroxine 150 mcg PO ACBREAKFAST 10/10/19 [History] Venlafaxine [Effexor XR] 300 mg PO DAILY 10/10/19 [History] lisinopriL [Lisinopril] 40 mg PO DAILY 10/10/19 [History] buPROPion [Wellbutrin SR] 150 mg PO DAILY 11/10/19 [History] clonazePAM [Clonazepam] 0.25 mg PO BID 11/26/19 [History] traZODone HCl [Trazodone HCl] 150 mg PO BEDTIME 12/01/19 [History] hydrOXYzine HCL [Atarax] 25 mg PO BID #60 tab 09/29/20 [Rx] Past Medical History HEENT History: Reports: Impaired Vision Other HEENT History: wears eyeglasses Cardiovascular History: Reports: Hypertension Respiratory History: Reports: None Gastrointestinal History: Reports: Gastritis Genitourinary History: Reports: None Musculoskeletal History: Reports: Fibromyalgia Neurological History: Reports: Headaches, Chronic Psychiatric History: Reports: Anxiety, Depression, Psych Hospitalization(s), Schizophrenia, Suicide Attempt Endocrine/Metabolic History: Reports: Hypothyroidism, Obesity/BMI 30+ Hematologic History: Reports: None Immunologic History: Reports: None Oncologic (Cancer) History: Reports: None Dermatologic History: Reports: Other (See Below) Other Dermatologic History: yeast infections - Infectious Disease History Infectious Disease History: Reports: None - Past Surgical History Head Surgeries/Procedures: Reports: None HEENT Surgical History: Reports: Myringotomy w Tube(s), Naso-Sinus Surgery, Tonsillectomy Other HEENT Surgeries/Procedures: sinus surgery Male Surgical History: Reports: None Social & Family History - Family History Family Medical History: No Pertinent Family History Cardiac: Reports: CAD Oncologic: Reports: Lung, Ovarian, Other (See Below) Other Oncologic Family History: tongue - Tobacco Use Tobacco Use Status *Q: Never Tobacco User Used Tobacco, but Quit: No - Caffeine Use Caffeine Use: Reports: Coffee Other Caffeine Use: aspercane thru diet soda Caffeine Use Comment: unable to obtain - Recreational Drug Use Recreational Drug Use: No - Living Situation & Occupation Living situation: Reports: , with Spouse, with Family (1 child) Occupation: Unemployed ED ROS GENERAL - Review of Systems Review Of Systems: See Below Constitutional: Denies: Fever, Chills HEENT: Reports: No Symptoms Respiratory: Denies: Shortness of Breath, Cough Cardiovascular: Reports: No Symptoms Endocrine: Reports: Fatigue GI/Abdominal: Denies: Abdominal Pain, Diarrhea, Nausea, Vomiting : Reports: No Symptoms Musculoskeletal: Reports: No Symptoms Skin: Reports: No Symptoms Neurological: Reports: Other (As per HPI) Psychiatric: Reports: Other (As per HPI) ED EXAM, BEHAVIORAL HEALTH - Physical Exam Exam: See Below Exam Limited By: No Limitations General Appearance: Alert, WD/WN, No Apparent Distress Eye Exam: Bilateral Eye: Normal Inspection Ears: Normal External Exam Throat/Mouth: Normal Voice, No Airway Compromise Head: Normocephalic Neck: Supple Respiratory/Chest: No Respiratory Distress, Lungs Clear, Normal Breath Sounds Cardiovascular: Regular Rate, Rhythm, No Murmur GI/Abdominal: Soft, Non-Tender, Other (Morbidly obese) Back Exam: Full Range of Motion Extremities: Normal Inspection, Normal Range of Motion Neurological: Alert, Normal Mood/Affect, No Motor/Sensory Deficits, Oriented x 3 Psychiatric: Alert, Oriented, Flat Affect Skin Exam: Warm, Dry COURSE, BEHAVIORAL HEALTH COMP - Course Vital Signs: Last Vital Signs Temp 96.5 F L 09/29/20 04:10 Pulse 99 09/29/20 04:10 Resp 18 09/29/20 04:10 BP 145/93 H 09/29/20 04:10 Pulse Ox 97 09/29/20 04:10 Departure - Departure Time of Disposition: 05:10 Disposition: Home, Self-Care 01 Condition: Fair Clinical Impression: Depressive disorder Medication adverse effect Qualifiers: Encounter type: initial encounter Qualified Code(s): T50.905A - Adverse effect of unspecified drugs, medicaments and biological substances, initial encounter Fatigue Qualifiers: Fatigue type: unspecified Qualified Code(s): R53.83 - Other fatigue - Discharge Information *PRESCRIPTION DRUG MONITORING PROGRAM REVIEWED*: Not Applicable *COPY OF PRESCRIPTION DRUG MONITORING REPORT IN PATIENT INGRIS: Not Applicable Prescriptions: hydrOXYzine HCL [Atarax] 25 mg PO BID #60 tab Instructions: Living With Depression Referrals: Alanna Casiano OIL DISPATCHER [Primary Care Provider] - Forms: ED Department Discharge Additional Instructions: Since we do not want you to have suicidal thoughts we cannot just stop the clonazepam abruptly. First thing you do is get the prescription filled for the hydroxyzine. Step 1. You take the hydroxyzine along with the clonazepam twice a day for 3 days. Step 2. You continue with the hydroxyzine but stop the clonazepam in the morning but continue taking it at night for 5 days. Step 3. You then continue the hydroxyzine twice a day and take the clonazepam every other day for 6 days. Step 4. You then continue the hydroxyzine twice a day and stop the clonazepam. You must follow-up with Dr. Braswell and if during this time of weaning yourself off the clonazepam if you are not feeling right then you need to see Dr. Quintana or return to the ER. Remember that abruptly stopping the clonazepam will cause side effects that we do not want. We will follow the 4 steps. And it will take approximately 2 weeks to get off the clonazepam and be on the hydroxyzine. Sepsis Event Note (ED) - Evaluation Sepsis Screening Result: No Definite Risk
== END 2020-09-29 05:22 | disposition home or self-care (01) ==
LOC: JD.ED 04:02
DX: R53.83 Other fatigue (principal); F32.9 Major depressive disorder, single episode, unspecified; T42.4X5A Adverse effect of benzodiazepines, initial encounter; F41.9 Anxiety disorder, unspecified; I10 Essential (primary) hypertension; E03.9 Hypothyroidism, unspecified; E66.9 Obesity, unspecified; Z68.41 Body mass index [BMI] 40.0-44.9, adult; Z88.1 Allergy status to other antibiotic agents; Z88.0 Allergy status to penicillin
CPT/HCPCS: 99283; 99284

== ENCOUNTER 2020-10-07 00:50 | Emergency (ER) | payer MEDICARE ==
[2020-10-07 01:04] VITALS: BP 139/81; PULSE 105
--- NOTE | 2020-10-07 01:23 | EDM.PDOCBH ---
ED HPI GENERAL MEDICAL PROBLEM - General Chief Complaint: Behavioral/Psych Stated Complaint: depression Time Seen by Provider: 10/07/20 01:00 Source of Information: Reports: Patient History Limitations: Reports: No Limitations - History of Present Illness INITIAL COMMENTS - FREE TEXT/NARRATIVE: Mr. Evans is a pleasant 34-year-old gentleman with a past medical history significant for anxiety, depression, and schizophrenia, who now presents to the ED stating that he has had worsening depression for the past several months. He has had increased sadness, increased tiredness, and a decreased desire to get out of bed. He has a history of 5 prior beside attempts, all by pill overdose, but currently denies feeling suicidal, and denies attempting to harm himself recently. The patient states that he has discussed his symptoms with his psychiatrist, and that she began modifying his medications about a month ago. He last spoke to her about 1 week ago, and he states that no changes in his medications were made at that time. Medical records indicate that the patient was seen in this ED on 09/30/2020, at which time the physician prescribed hydralazine, with the recommendation to taper off his clonazepam over 2 weeks. A specific plan was made, however, the patient tells me that he did not follow that plan, and that he has not taken any clonazepam for the past 5 to 7 days. Here in the ED, the patient is initially found to be slightly tachycardic at 105 bpm, otherwise, he is hemodynamically stable, afebrile, saturating 96% on room air. Other than his depression, the patient denies having a recent fever, chills, sore throat, ear pain, nasal or sinus congestion, cough, dyspnea, chest pain, palpitations, nausea, vomiting, constipation, diarrhea, abdominal pain, urinary symptoms, recent weight gain or weight loss, recent bloody bowel movements or black bowel movements, recent joint aches, headaches, or rashes. The patient's PCP is Alanna Casiano NP. His Psychiatrist is Dr. Indira Braswell. He has not received an influenza vaccine this season, and declined an offer to receive one here in the ED. - Related Data Allergies Allergy/AdvReac Type Severity Reaction Status Date / Time cefaclor [From [facility]] Allergy Intermediate Rash Verified 09/29/20 04:16 Penicillins Allergy Intermediate Rash Verified 09/29/20 04:16 Home Meds: Home Meds Levothyroxine 150 mcg PO ACBREAKFAST 10/10/19 [History] Venlafaxine [Effexor XR] 300 mg PO DAILY 10/10/19 [History] lisinopriL [Lisinopril] 40 mg PO DAILY 10/10/19 [History] buPROPion [Wellbutrin SR] 150 mg PO DAILY 11/10/19 [History] clonazePAM [Clonazepam] 0.25 mg PO BID 11/26/19 [History] traZODone HCl [Trazodone HCl] 150 mg PO BEDTIME 12/01/19 [History] hydrOXYzine HCL [Atarax] 25 mg PO BID #60 tab 09/29/20 [Rx] Past Medical History HEENT History: Reports: Impaired Vision (wears glasses) Cardiovascular History: Reports: Hypertension Psychiatric History: Reports: Anxiety, Depression, Psych Hospitalization(s), Schizophrenia, Suicide Attempt (x 5, by pill OD) Endocrine/Metabolic History: Reports: Hypothyroidism, Obesity/BMI 30+ - Past Surgical History HEENT Surgical History: Reports: Myringotomy w Tube(s), Naso-Sinus Surgery (x 6), Tonsillectomy Social & Family History - Family History Family Medical History: No Pertinent Family History Cardiac: Reports: CAD Oncologic: Reports: Lung, Ovarian, Other (See Below) Other Oncologic Family History: tongue - Tobacco Use Tobacco Use Status *Q: Former Tobacco User Years of Tobacco use: 13 Packs/Tins Daily: 0.5 Month/Year Tobacco Last Used: Quit 2014 Second Hand Smoke Exposure: No - Caffeine Use Caffeine Use: Reports: Coffee Other Caffeine Use: aspercane thru diet soda Caffeine Use Comment: unable to obtain - Alcohol Use Alcohol Use History: Yes Alcohol Use Frequency: Rarely - Recreational Drug Use Recreational Drug Use: Yes Drug Use in Last 12 Months: No Recreational Drug Type: Reports: Marijuana/Hashish (last smoked 2013) - Living Situation & Occupation Living situation: Reports: , with Spouse, with Family (1 child) Occupation: Unemployed ED ROS GENERAL - Review of Systems Review Of Systems: Comprehensive ROS is negative, except as noted in HPI. ED EXAM, BEHAVIORAL HEALTH - Physical Exam Exam: See Below Exam Limited By: No Limitations General Appearance: Alert, WD/WN, No Apparent Distress Eye Exam: Bilateral Eye: EOMI, Normal Inspection Ears: Normal External Exam, Hearing Grossly Normal Nose: Normal Inspection Throat/Mouth: Normal Inspection, Normal Lips, Normal Voice, No Airway Compromise Head: Atraumatic, Normocephalic Neck: Normal Inspection, Full Range of Motion Respiratory/Chest: No Respiratory Distress, Lungs Clear, Normal Breath Sounds, No Accessory Muscle Use Cardiovascular: Normal Peripheral Pulses, Regular Rate, Rhythm, No Edema, No Gallop, No JVD, No Murmur, No Rub GI/Abdominal: Normal Bowel Sounds, Soft, Non-Tender, No Organomegaly, No Distention, No Abnormal Bruit, No Mass Back Exam: Normal Inspection, Full Range of Motion, NT Extremities: Normal Inspection, Normal Range of Motion, No Pedal Edema, Normal Capillary Refill Neurological: Alert, Normal Cognition, No Motor/Sensory Deficits, Oriented x 3 Psychiatric: Normal Affect Skin Exam: Warm, Dry, Intact, Normal color, No rash COURSE, BEHAVIORAL HEALTH COMP - Course Vital Signs: Last Vital Signs Temp 36.6 C 10/07/20 01:01 Pulse 105 H 10/07/20 01:01 Resp 16 10/07/20 01:01 BP 139/81 10/07/20 01:01 Pulse Ox 96 10/07/20 01:01 Medical Clearance: 10/07/20 01:17 As above, the patient reports that he has had worsening depression and anhedonia without suicidal ideation or plan, for months, and that his Psychiatrist, Dr. Braswell, has been modifying his medications for the past month, with no changes when he spoke to her a week ago. He was hoping that I could modify one of his antidepressants, however, I explained that that is not a good idea. Any changes that I might make now would not likely result in any change in his symptoms for 2 to 3 weeks, and at the same time, he can contact Dr. Braswell tomorrow and be given much better advice than I can give. The patient agrees. I will therefore discharge him home. Departure - Departure Time of Disposition: 01:21 Disposition: Home, Self-Care 01 Condition: Good Clinical Impression: Depression - Discharge Information *PRESCRIPTION DRUG MONITORING PROGRAM REVIEWED*: Not Applicable *COPY OF PRESCRIPTION DRUG MONITORING REPORT IN PATIENT INGRIS: Not Applicable Referrals: Alanna Casiano NP [Primary Care Provider] - Indira Braswell MD [Ordering Only Provider] - Additional Instructions: You were seen in the emergency room for several months of continued depression with increased sadness, increased tiredness, and a decreased desire to get out of bed, without suicidal ideation or plan. As discussed, since your medications are already being managed by your psychiatrist, Dr. Braswell, we feel that it would be far better for her to make decisions about your medications than us. Additionally, any changes in your antidepressant medications today would not likely result in improvement in your symptoms for 2 to 3 weeks. We recommend that you contact your Psychiatrist, Dr. Indira Braswell, tomorrow, 10/08/2020, to discuss your situation. If any other problems, please do not hesitate to return to the ER. Sepsis Event Note (ED) - Evaluation Sepsis Screening Result: No Definite Risk - Focused Exam Vital Signs: Vital Signs Temp Pulse Resp BP Pulse Ox 10/07/20 01:01 36.6 C 105 H 16 139/81 96
== END 2020-10-07 01:33 | disposition home or self-care (01) ==
LOC: JD.ED 00:50
DX: F32.9 Major depressive disorder, single episode, unspecified (principal); I10 Essential (primary) hypertension; F41.9 Anxiety disorder, unspecified; E03.9 Hypothyroidism, unspecified; E66.9 Obesity, unspecified; Z88.0 Allergy status to penicillin; Z88.1 Allergy status to other antibiotic agents; Z87.891 Personal history of nicotine dependence; Z79.899 Other long term (current) drug therapy
CPT/HCPCS: 99283

== ENCOUNTER 2020-11-23 10:30 | Emergency (ER) | payer MEDICARE ==
[2020-11-23 10:52] VITALS: BP 124/89; PULSE 100
--- NOTE | 2020-11-23 11:25 | EDM.PDOCBH ---
ED HPI GENERAL MEDICAL PROBLEM - General Chief Complaint: Behavioral/Psych Stated Complaint: MENTAL EVAL Time Seen by Provider: 11/23/20 11:13 Source of Information: Reports: Patient History Limitations: Reports: Altered Mental Status - History of Present Illness INITIAL COMMENTS - FREE TEXT/NARRATIVE: 34-year-old male presents to the emergency department with complaints of hearing voices and having suicidal thoughts. Patient has a history of schizophrenia and is well-known to this emergency department. States he has not been taking his medications and the voices and the suicidal thoughts are getting worse however he does not have a plan. Patient states he has been sleeping more during the day and unable to sleep at night. He is unable to tell me specifically when he stopped taking his medications. States he was seen at [facility] by Dr. Braswell 2 weeks ago and he was not taking his medications at that time. - Related Data Allergies Allergy/AdvReac Type Severity Reaction Status Date / Time cefaclor [From Ceclor] Allergy Intermediate Rash Verified 11/23/20 10:48 Penicillins Allergy Intermediate Rash Verified 11/23/20 10:48 Home Meds: Home Meds Levothyroxine 150 mcg PO ACBREAKFAST 10/10/19 [History] Venlafaxine [Effexor XR] 300 mg PO DAILY 10/10/19 [History] lisinopriL [Lisinopril] 40 mg PO DAILY 10/10/19 [History] buPROPion [Wellbutrin SR] 150 mg PO DAILY 11/10/19 [History] clonazePAM [Clonazepam] 1 mg PO TID 11/26/19 [History] traZODone HCl [Trazodone HCl] 150 mg PO BEDTIME 12/01/19 [History] hydrOXYzine HCL [Atarax] 25 mg PO BID #60 tab 09/29/20 [Rx] ARIPiprazole [Abilify] 20 mg PO DAILY 11/23/20 [History] Past Medical History HEENT History: Reports: Impaired Vision Other HEENT History: wears eyeglasses Cardiovascular History: Reports: Hypertension Respiratory History: Reports: None Gastrointestinal History: Reports: Gastritis Genitourinary History: Reports: None Musculoskeletal History: Reports: Fibromyalgia Neurological History: Reports: Headaches, Chronic Psychiatric History: Reports: Anxiety, Depression, Psych Hospitalization(s), Schizophrenia, Suicide Attempt Endocrine/Metabolic History: Reports: Hypothyroidism, Obesity/BMI 30+ Hematologic History: Reports: None Immunologic History: Reports: None Oncologic (Cancer) History: Reports: None Dermatologic History: Reports: Other (See Below) Other Dermatologic History: yeast infections - Infectious Disease History Infectious Disease History: Reports: Chicken Pox - Past Surgical History Head Surgeries/Procedures: Reports: None HEENT Surgical History: Reports: Myringotomy w Tube(s), Naso-Sinus Surgery, Tonsillectomy Other HEENT Surgeries/Procedures: sinus surgery Male Surgical History: Reports: None Social & Family History - Family History Family Medical History: No Pertinent Family History Cardiac: Reports: CAD Oncologic: Reports: Lung, Ovarian, Other (See Below) Other Oncologic Family History: tongue - Tobacco Use Tobacco Use Status *Q: Former Tobacco User Used Tobacco, but Quit: No - Caffeine Use Caffeine Use: Reports: Coffee, Energy Drinks, Soda Other Caffeine Use: aspercane thru diet soda Caffeine Use Comment: unable to obtain - Recreational Drug Use Recreational Drug Use: No - Living Situation & Occupation Living situation: Reports: , with Spouse, with Family (1 child) Occupation: Unemployed ED ROS GENERAL - Review of Systems Review Of Systems: See Below Constitutional: Reports: Weight Gain. Denies: Fever, Chills HEENT: Reports: Glasses Respiratory: Reports: No Symptoms Cardiovascular: Reports: No Symptoms Endocrine: Reports: No Symptoms GI/Abdominal: Reports: No Symptoms : Reports: No Symptoms Musculoskeletal: Reports: No Symptoms Skin: Reports: No Symptoms Neurological: Reports: No Symptoms Psychiatric: Reports: Depression, Hallucinations (Verbal), Suicidal Ideation (No active plan) Hematologic/Lymphatic: Reports: No Symptoms Immunologic: Reports: No Symptoms ED EXAM, BEHAVIORAL HEALTH - Physical Exam Exam: See Below Exam Limited By: No Limitations General Appearance: Alert, WD/WN, No Apparent Distress, Obese Eye Exam: Bilateral Eye: PERRL Ears: Hearing Grossly Normal Throat/Mouth: Normal Inspection, Normal Voice, No Airway Compromise Head: Atraumatic, Normocephalic Neck: Normal Inspection, Supple, Non-Tender, Full Range of Motion Respiratory/Chest: No Respiratory Distress, Lungs Clear, Normal Breath Sounds, No Accessory Muscle Use, Chest Non-Tender Cardiovascular: Normal Peripheral Pulses, Regular Rate, Rhythm, No Edema, No Murmur GI/Abdominal: Normal Bowel Sounds, Soft, Non-Tender, No Distention (Male) Exam: Deferred Rectal (Males) Exam: Deferred Back Exam: Normal Inspection, Full Range of Motion Extremities: Normal Inspection, Normal Range of Motion, Non-Tender, No Pedal Edema, Normal Capillary Refill Neurological: Alert, Normal Mood/Affect, Normal Cognition, Normal Gait Psychiatric: Alert, Flat Affect, Withdrawn, Suicidal Thoughts, Auditory Hallucinations Skin Exam: Warm, Dry, Intact, Normal color, No rash #1 Interpretation EKG Date: 11/23/20 Time: 12:27 Rhythm: NSR Rate (Beats/Min): 94 [place]: Normal P-Wave: Present QRS: Normal ST-T: Normal QT: Normal EKG Interpretation Comments: Per Dr. Lema interpretation: Sinus rhythm at 94 bpm, initial poor R wave progression, diffuse early repolarization pattern, decreased voltage limb leads and precordial leads COURSE, BEHAVIORAL HEALTH COMP - Course Vital Signs: Last Vital Signs Temp 96.7 F L 11/23/20 10:35 Pulse 100 11/23/20 10:35 Resp 16 11/23/20 10:35 BP 124/89 11/23/20 10:35 Pulse Ox 94 L 11/23/20 10:35 Orders, Labs, Meds: Active Orders 24 hr Category Date Time Status EKG Documentation Completion [RC] STAT Care 11/23/20 11:24 Active Laboratory Tests 11/23/20 11/23/20 11/23/20 Range/Units 11:37 11:37 11:37 WBC 8.70 (4.23-9.07) K/mm3 RBC 4.68 (4.63-6.08) M/mm3 Hgb 13.2 L (13.7-17.5) gm/dl Hct 40.4 (40.1-51.0) % MCV 86.3 (79.0-92.2) fl MCH 28.2 (25.7-32.2) pg MCHC 32.7 (32.2-35.5) g/dl RDW Std Deviation 39.8 (35.1-43.9) fL Plt Count 275 (163-337) K/mm3 MPV 10.5 (9.4-12.3) fl Neut % (Auto) 64.5 (34.0-67.9) % Lymph % (Auto) 19.4 L (21.8-53.1) % [place] % (Auto) 10.2 (5.3-12.2) % Eos % (Auto) 5.4 (0.8-7.0) Baso % (Auto) 0.3 (0.1-1.2) % Neut # (Auto) 5.60 H (1.78-5.38) K/mm3 Lymph # (Auto) 1.69 (1.32-3.57) K/mm3 [place] # (Auto) 0.89 H (0.30-0.82) K/mm3 Eos # (Auto) 0.47 (0.04-0.54) K/mm3 Baso # (Auto) 0.03 (0.01-0.08) K/mm3 Sodium 142 (136-145) mEq/L Potassium 3.9 (3.5-5.1) mEq/L Chloride 104 (98-107) mEq/L Carbon Dioxide 28 (21-32) mEq/L Anion Gap 13.9 (5-15) BUN 13 (7-18) mg/dL Creatinine 1.1 (0.7-1.3) mg/dL Est Cr Clr Drug Dosing 99.83 mL/min Estimated GFR (MDRD) > 60 (>60) mL/min BUN/Creatinine Ratio 11.8 L (14-18) Glucose 116 H (74-106) mg/dL Calcium 8.9 (8.5-10.1) mg/dL Total Bilirubin 0.2 (0.2-1.0) mg/dL AST 19 (15-37) U/L ALT 41 (16-63) U/L Alkaline Phosphatase 72 (46-116) U/L Total Protein 7.1 (6.4-8.2) g/dl Albumin 3.5 (3.4-5.0) g/dl Globulin 3.6 gm/dL Albumin/Globulin Ratio 1.0 (1-2) TSH 3rd Generation 0.887 (0.358-3.74) uIU/mL Salicylates 0.6 L (2.8-20) mg/dL Urine Opiates Screen (RSRHFN=016) Ur Buprenorphine Scrn (CUTOFF=10) Ur Oxycodone Screen (BHV8YN=395) Urine Methadone Screen (WPA3SF=771) Ur Propoxyphene Screen (GWBZBA=386) Acetaminophen 0 L (10-30) ug/mL Ur Barbiturates Screen (SPNPCV=848) Ur Tricyclics Screen (UOBCJA=939) Ur Phencyclidine Scrn (CUTOFF=25) Ur Amphetamine Screen (TBMOQT=834) U Methamphetamines Scrn (DPKIUH=642) U Benzodiazepines Scrn (DCSCXD=693) U Cocaine Metab Screen (QOOLGN=547) U Marijuana (THC) Screen (CUTOFF=50) Ethyl Alcohol 0.00 (0.00) gm% SARS-CoV-2 RNA (GRACIELA) (NEGATIVE) 11/23/20 11/23/20 Range/Units 13:05 13:35 WBC (4.23-9.07) K/mm3 RBC (4.63-6.08) M/mm3 Hgb (13.7-17.5) gm/dl Hct (40.1-51.0) % MCV (79.0-92.2) fl MCH (25.7-32.2) pg MCHC (32.2-35.5) g/dl RDW Std Deviation (35.1-43.9) fL Plt Count (163-337) K/mm3 MPV (9.4-12.3) fl Neut % (Auto) (34.0-67.9) % Lymph % (Auto) (21.8-53.1) % [place] % (Auto) (5.3-12.2) % Eos % (Auto) (0.8-7.0) Baso % (Auto) (0.1-1.2) % Neut # (Auto) (1.78-5.38) K/mm3 Lymph # (Auto) (1.32-3.57) K/mm3 [place] # (Auto) (0.30-0.82) K/mm3 Eos # (Auto) (0.04-0.54) K/mm3 Baso # (Auto) (0.01-0.08) K/mm3 Sodium (136-145) mEq/L Potassium (3.5-5.1) mEq/L Chloride (98-107) mEq/L Carbon Dioxide (21-32) mEq/L Anion Gap (5-15) BUN (7-18) mg/dL Creatinine (0.7-1.3) mg/dL Est Cr Clr Drug Dosing mL/min Estimated GFR (MDRD) (>60) mL/min BUN/Creatinine Ratio (14-18) Glucose (74-106) mg/dL Calcium (8.5-10.1) mg/dL Total Bilirubin (0.2-1.0) mg/dL AST (15-37) U/L ALT (16-63) U/L Alkaline Phosphatase (46-116) U/L Total Protein (6.4-8.2) g/dl Albumin (3.4-5.0) g/dl Globulin gm/dL Albumin/Globulin Ratio (1-2) TSH 3rd Generation (0.358-3.74) uIU/mL Salicylates (2.8-20) mg/dL Urine Opiates Screen Negative (JTFWNH=033) Ur Buprenorphine Scrn Negative (CUTOFF=10) Ur Oxycodone Screen Negative (UZI3KZ=689) Urine Methadone Screen Negative (TRL6NZ=310) Ur Propoxyphene Screen Negative (SEFFEV=683) Acetaminophen (10-30) ug/mL Ur Barbiturates Screen Negative (KADWTN=952) Ur Tricyclics Screen Negative (RPTIWS=020) Ur Phencyclidine Scrn Negative (CUTOFF=25) Ur Amphetamine Screen Negative (AKMJOH=176) U Methamphetamines Scrn Negative (VLKEXW=261) U Benzodiazepines Scrn Negative (AWPEGR=343) U Cocaine Metab Screen Negative (VLENJO=653) U Marijuana (THC) Screen Negative (CUTOFF=50) Ethyl Alcohol (0.00) gm% SARS-CoV-2 RNA (GRACIELA) Positive H (NEGATIVE) Medications Discontinued Medications Generic Name Dose Route Start Last Admin Trade Name Freq PRN Reason Stop Dose Admin Aripiprazole 20 mg 11/23/20 11:40 11/23/20 12:22 Abilify PO 11/23/20 11:41 20 mg ONETIME ONE Administration Lorazepam 1 mg 11/23/20 11:40 11/23/20 12:22 Ativan PO 11/23/20 11:41 1 mg ONETIME ONE Administration Re-Assessment/Re-Exam: Patient is hearing voices and he is suicidal, however he does not have a definitive plan. He is requesting to be transferred to [facility]. I have ordered a CBC, CMP, TSH, urine drug screen, alcohol level, salicylate level and acetaminophen level. I will also give him a dose of Abilify and Ativan. 1334 Labs reveal a WBC 8.70 hemoglobin 13.2, hematocrit 40.4, sodium 142, potassium 3.9, anion gap 13.9, BUN 13 creatinine 1.1, glucose 116, TSH 0.887, Salicylates 0.6, urine drug screen is negative, acetaminophen level is 0, ethyl alcohol is 0. 1450 Covid test comes back positive. I phoned [facility] in [place] to arrange for transfer to however they do not take Covid patients. I phoned [facility] in [place] and Dr. Wellington has accepted care of this patient. They require that he be transported by ambulance or Pathology Laboratory Director's department. We are arranging this transfer. [facility] is declining transport of this patient as they state he is voluntary and it will be covered by their insurance. [facility] has agreed to transport this patient to a [facility] in [place]. Their crew is out and will be back in 30 min, then they will be en route to transfer. Departure - Departure Time of Disposition: 16:08 Disposition: DC/Tfer to Acute Hospital 02 Condition: Good Clinical Impression: Suicidal ideations - Discharge Information Referrals: Alanna Casiano OPTICAL DESIGNER [Primary Care Provider] - Forms: ED Department Discharge Sepsis Event Note (ED) - Evaluation Sepsis Screening Result: No Definite Risk - Focused Exam Vital Signs: Vital Signs Temp Pulse Resp BP Pulse Ox 11/23/20 10:35 96.7 F L 100 16 124/89 94 L - My Orders Last 24 Hours: My Active Orders 11/23/20 11:24 EKG Documentation Completion [RC] STAT - Assessment/Plan Last 24 Hours: My Active Orders 11/23/20 11:24 EKG Documentation Completion [RC] STAT
[2020-11-23] MEDS ORDERED: LORazepam 1 MG Tab PO ONE (11:40)
[2020-11-23] MEDS ORDERED: ARIPiprazole 5 MG Tab PO ONE (11:40)
[2020-11-23 12:18] LABS: ACETAMINOPHEN 0 ug/mL (10-30)
== END 2020-11-23 17:01 ==
LOC: JD.ED 10:30
DX: R45.851 Suicidal ideations (principal); U07.1 COVID-19; R44.0 Auditory hallucinations; I10 Essential (primary) hypertension; E03.9 Hypothyroidism, unspecified; E66.9 Obesity, unspecified; Z68.42 Body mass index [BMI] 45.0-49.9, adult; Z88.0 Allergy status to penicillin; Z88.1 Allergy status to other antibiotic agents; Z79.899 Other long term (current) drug therapy; Z87.891 Personal history of nicotine dependence
CPT/HCPCS: 36415; 80053; 80143; 80179; 80306; 80307; 84443; 85025; 93005; 99285; A9270; U0002; 93010

== ENCOUNTER 2021-06-18 17:59 | Emergency (ER) | payer MEDICARE ==
--- NOTE | 2021-06-18 19:44 | CR ---
Chest: Frontal view of the chest was obtained. Comparison: Prior chest x-ray of 06/14/20. Heart size and mediastinum are normal. Lungs are clear with no acute parenchymal change. No acute osseous abnormality is appreciated. Two linear densities are seen overlying the left heart presumably within the superficial soft tissues of the chest. Impression: 1. Two metallic densities as noted above. 2. Nothing acute is otherwise seen on frontal chest x-ray. Diagnostic code #3
--- NOTE | 2021-06-18 20:01 | EDM.PDOC ---
ED HPI GENERAL MEDICAL PROBLEM - General Chief Complaint: Cardiovascular Problem Stated Complaint: CHEST THROB AND SIDE PAIN Time Seen by Provider: 06/18/21 18:26 Source of Information: Reports: Patient History Limitations: Reports: No Limitations - History of Present Illness INITIAL COMMENTS - FREE TEXT/NARRATIVE: The patient presents with right sided chest and flank discomfort and he was diaphoretic earlier today. He has no fever, chills, cough, shortness of breath, abdominal pain, nausea or vomiting. He was [facility] from the [facility]. He has no history of heart disease. Onset: Gradual Duration: Hour(s): Location: Reports: Chest Quality: Reports: Other (discomfort) Severity: Moderate Improves with: Reports: None Worsens with: Reports: None Associated Symptoms: Reports: Chest Pain. Denies: Cough, Fever/Chills, Headaches, Nausea/Vomiting, Shortness of Breath Right Flank Pain Score (Numeric/FACES): 6 Chest Pain Score (Numeric/FACES): 1 Abdomen Pain Score (Numeric/FACES): 4 - Related Data Allergies Allergy/AdvReac Type Severity Reaction Status Date / Time cefaclor [From Ceclor] Allergy Intermediate Rash Verified 06/18/21 18:25 Penicillins Allergy Intermediate Rash Verified 06/18/21 18:25 Home Meds: Home Meds Levothyroxine 150 mcg PO ACBREAKFAST 10/10/19 [History] clonazePAM [Clonazepam] 1 mg PO TID 11/26/19 [History] ARIPiprazole [Abilify] 5 mg PO DAILY 11/23/20 [History] metFORMIN [Glucophage XR] 500 mg PO BIDMEALS 06/18/21 [History] Past Medical History HEENT History: Reports: Impaired Vision Other HEENT History: wears eyeglasses Cardiovascular History: Reports: Hypertension Respiratory History: Reports: None Gastrointestinal History: Reports: Gastritis Genitourinary History: Reports: None Musculoskeletal History: Reports: Fibromyalgia Neurological History: Reports: Headaches, Chronic Psychiatric History: Reports: Anxiety, Depression, Psych Hospitalization(s), Schizophrenia, Suicide Attempt Endocrine/Metabolic History: Reports: Hypothyroidism, Obesity/BMI 30+ Hematologic History: Reports: None Immunologic History: Reports: None Oncologic (Cancer) History: Reports: None Dermatologic History: Reports: Other (See Below) Other Dermatologic History: yeast infections - Infectious Disease History Infectious Disease History: Reports: Chicken Pox, Novel Coronavirus - Past Surgical History Head Surgeries/Procedures: Reports: None HEENT Surgical History: Reports: Myringotomy w Tube(s), Naso-Sinus Surgery, Tonsillectomy Other HEENT Surgeries/Procedures: sinus surgery Male Surgical History: Reports: None Social & Family History - Family History Family Medical History: No Pertinent Family History Cardiac: Reports: CAD Oncologic: Reports: Lung, Ovarian, Other (See Below) Other Oncologic Family History: tongue - Caffeine Use Caffeine Use: Reports: Coffee, Energy Drinks, Soda Other Caffeine Use: aspercane thru diet soda Caffeine Use Comment: unable to obtain - Recreational Drug Use Recreational Drug Use: Yes Drug Use in Last 12 Months: No Recreational Drug Type: Reports: Marijuana/Hashish Recreational Drug Use Frequency: Not Used In Over 1 Year - Living Situation & Occupation Living situation: Reports: , with Spouse, with Family (1 child) Occupation: Unemployed ED ROS GENERAL - Review of Systems Review Of Systems: See Below Constitutional: Reports: No Symptoms HEENT: Reports: No Symptoms Respiratory: Reports: No Symptoms Cardiovascular: Reports: Chest Pain Endocrine: Reports: No Symptoms GI/Abdominal: Reports: No Symptoms : Reports: No Symptoms Musculoskeletal: Reports: No Symptoms ED EXAM, GENERAL - Physical Exam Exam: See Below Exam Limited By: No Limitations General Appearance: Alert, No Apparent Distress Ears: Normal External Exam Nose: Normal Inspection Head: Atraumatic, Normocephalic Neck: Normal Inspection Respiratory/Chest: No Respiratory Distress, Lungs Clear, Normal Breath Sounds Cardiovascular: Regular Rate, Rhythm, No Edema, No Murmur GI/Abdominal: Soft, Non-Tender, No Organomegaly, No Mass Back Exam: Normal Inspection Extremities: Normal Inspection Neurological: Alert, Oriented #1 Interpretation EKG Date: 06/18/21 Time: 19:24 Rhythm: NSR Rate (Beats/Min): 89 [place]: Normal P-Wave: Present QRS: Normal ST-T: Normal QT: Normal Course - Vital Signs Last Recorded V/S: Last Vital Signs Temp 97.3 F 06/18/21 18:29 Pulse 89 06/18/21 18:29 Resp 20 06/18/21 18:29 BP 147/102 H 06/18/21 18:29 Pulse Ox 98 06/18/21 18:29 - Orders/Labs/Meds Orders: Active Orders 24 hr Category Date Time Status Cardiac Monitoring [RC] . DIRECTED Care 06/18/21 18:49 Active EKG Documentation Completion [RC] STAT Care 06/18/21 18:49 Active Labs: Laboratory Tests 06/18/21 06/18/21 Range/Units 19:07 19:07 WBC 11.87 H (4.23-9.07) K/mm3 RBC 5.02 (4.63-6.08) M/mm3 Hgb 14.9 D (13.7-17.5) gm/dl Hct 43.9 (40.1-51.0) % MCV 87.5 (79.0-92.2) fl MCH 29.7 (25.7-32.2) pg MCHC 33.9 (32.2-35.5) g/dl RDW Std Deviation 41.6 (35.1-43.9) fL Plt Count 319 (163-337) K/mm3 MPV 10.2 (9.4-12.3) fl Neut % (Auto) 66.2 (34.0-67.9) % Lymph % (Auto) 21.9 (21.8-53.1) % [place] % (Auto) 7.3 (5.3-12.2) % Eos % (Auto) 3.9 (0.8-7.0) Baso % (Auto) 0.3 (0.1-1.2) % Neut # (Auto) 7.86 H (1.78-5.38) K/mm3 Lymph # (Auto) 2.60 (1.32-3.57) K/mm3 [place] # (Auto) 0.87 H (0.30-0.82) K/mm3 Eos # (Auto) 0.46 (0.04-0.54) K/mm3 Baso # (Auto) 0.03 (0.01-0.08) K/mm3 Sodium 139 (136-145) mEq/L Potassium 4.1 (3.5-5.1) mEq/L Chloride 103 (98-107) mEq/L Carbon Dioxide 26 (21-32) mEq/L Anion Gap 14.1 (5-15) BUN 21 H (7-18) mg/dL Creatinine 1.3 (0.7-1.3) mg/dL Est Cr Clr Drug Dosing 83.67 mL/min Estimated GFR (MDRD) > 60 (>60) mL/min BUN/Creatinine Ratio 16.2 (14-18) Glucose 99 (70-99) mg/dL Calcium 9.4 (8.5-10.1) mg/dL Total Bilirubin 0.3 (0.2-1.0) mg/dL AST 48 H (15-37) U/L ALT 72 H (16-63) U/L Alkaline Phosphatase 67 (46-116) U/L Troponin I < 0.017 (0.00-0.056) ng/mL Total Protein 7.8 (6.4-8.2) g/dl Albumin 3.8 (3.4-5.0) g/dl Globulin 4.0 gm/dL Albumin/Globulin Ratio 1.0 (1-2) - Re-Assessments/Exams Free Text/Narrative Re-Assessment/Exam: 06/18/21 19:58 I ordered an EKG, CXR and labs. His EKG shows a NSR with no acute changes. His WBC was a little elevated at 11.87. His CBC looks good. His AST is elevated at 48. His ALT is elevated at 72. His troponin is negative. 06/18/21 19:59 Departure - Departure Time of Disposition: 20:00 Disposition: Home, Self-Care 01 Condition: Good Clinical Impression: Atypical chest pain Referrals: Alanna Casiano TEACHING ARTIST [Primary Care Provider] - 1 Week Additional Instructions: Take your medications as prescribed. Take tylenol or motrin as needed for pain. Follow up with your doctor within a week. Please return if you are worse. Sepsis Event Note (ED) - Focused Exam Vital Signs: Vital Signs Temp Pulse Resp BP Pulse Ox 06/18/21 18:29 97.3 F 89 20 147/102 H 98 - My Orders Last 24 Hours: My Active Orders 06/18/21 18:49 Cardiac Monitoring [RC] . DIRECTED EKG Documentation Completion [RC] STAT - Assessment/Plan Last 24 Hours: My Active Orders 06/18/21 18:49 Cardiac Monitoring [RC] . DIRECTED EKG Documentation Completion [RC] STAT
[2021-06-18 20:05] VITALS: BP 139/103; PULSE 91
== END 2021-06-18 20:19 | disposition home or self-care (01) ==
LOC: JD.ED 17:59
DX: R07.89 Other chest pain (principal); E03.9 Hypothyroidism, unspecified; E66.9 Obesity, unspecified; I10 Essential (primary) hypertension; Z68.43 Body mass index [BMI] 50.0-59.9, adult; Z88.0 Allergy status to penicillin; Z88.8 Allergy status to other drugs, medicaments and biological substances; Z79.84 Long term (current) use of oral hypoglycemic drugs; Z79.899 Other long term (current) drug therapy
CPT/HCPCS: 36415; 71045; 71045-26; 80053; 84484; 85025; 93005; 93010; 99283; 99285-25

== ENCOUNTER 2021-08-03 16:03 | Emergency (ER) | payer MEDICARE ==
--- NOTE | 2021-08-03 16:49 | EDM.PDOCBH ---
ED HPI GENERAL MEDICAL PROBLEM - General Chief Complaint: Behavioral/Psych Stated Complaint: SELF HARM Time Seen by Provider: 08/03/21 16:45 Source of Information: Reports: Patient, Family History Limitations: Reports: Uncooperative, Other (behavioral health) - History of Present Illness INITIAL COMMENTS - FREE TEXT/NARRATIVE: Patient 35-year-old male with a past medical history of schizophrenia depression and suicidality presenting with a chief complaint of suicidal behavior. Patient is present with and son. Patient not providing history. Patient only states "I do not feel well". states that over the past week he has had significant reduction in sleep. During this period of time is also not taking any of his medications. She notes that at home he has been having auditory hallucinations and is threatened to kill himself with a knife and by running into traffic. Patient has past history of suicide attempts. Patient not responding to any of these comments but . No medical complaints at this time. - Related Data Allergies Allergy/AdvReac Type Severity Reaction Status Date / Time cefaclor [facility] Allergy Intermediate Rash Verified 06/18/21 18:25 Penicillins Allergy Intermediate Rash Verified 06/18/21 18:25 Home Meds: Home Meds Levothyroxine 150 mcg PO ACBREAKFAST 10/10/19 [History] clonazePAM [Clonazepam] 1 mg PO TID 11/26/19 [History] ARIPiprazole [Abilify] 5 mg PO DAILY 11/23/20 [History] metFORMIN [Glucophage XR] 500 mg PO BIDMEALS 06/18/21 [History] Past Medical History HEENT History: Reports: Impaired Vision Other HEENT History: wears eyeglasses Cardiovascular History: Reports: Hypertension Respiratory History: Reports: None Gastrointestinal History: Reports: Gastritis Genitourinary History: Reports: None Musculoskeletal History: Reports: Fibromyalgia Neurological History: Reports: Headaches, Chronic Psychiatric History: Reports: Anxiety, Depression, Psych Hospitalization(s), Schizophrenia, Suicide Attempt Endocrine/Metabolic History: Reports: Hypothyroidism, Obesity/BMI 30+ Hematologic History: Reports: None Immunologic History: Reports: None Oncologic (Cancer) History: Reports: None Dermatologic History: Reports: Other (See Below) Other Dermatologic History: yeast infections - Infectious Disease History Infectious Disease History: Reports: Chicken Pox, Novel Coronavirus - Past Surgical History Head Surgeries/Procedures: Reports: None HEENT Surgical History: Reports: Myringotomy w Tube(s), Naso-Sinus Surgery, Tonsillectomy Other HEENT Surgeries/Procedures: sinus surgery Male Surgical History: Reports: None Social & Family History - Family History Family Medical History: No Pertinent Family History Cardiac: Reports: CAD Oncologic: Reports: Lung, Ovarian, Other (See Below) Other Oncologic Family History: tongue - Tobacco Use Tobacco Use Status *Q: Current Every Day Tobacco User Years of Tobacco use: 20 Packs/Tins Daily: 1 - Caffeine Use Caffeine Use: Reports: None Other Caffeine Use: aspercane thru diet soda Caffeine Use Comment: unable to obtain - Recreational Drug Use Recreational Drug Use: No - Living Situation & Occupation Living situation: Reports: , with Spouse, with Family (1 child) Occupation: Unemployed ED ROS GENERAL - Review of Systems Review Of Systems: Unable To Obtain Reason Not Obtained: Not answering questions ED EXAM, BEHAVIORAL HEALTH - Physical Exam Exam: See Below Text/Narrative:: I have reviewed the triage vital signs Const: Patient staring straight ahead. He will occasionally closes eyes very tight. However, he is not moving or interacting. Well nourished, well developed, appears stated age Eyes: Pupils Equal and reactive to light bilaterally, no conjunctival injection HENT: No signs of trauma or swelling, Neck supple without meningismus CV: Mildly tachycardic, Warm, well-perfused extremities RESP: Unlabored respiratory effort GI: soft, non-tender, non-distended, no masses MSK: No gross deformities appreciated Skin: Warm, dry. No rashes Neuro: Awake walking with steady gait. Psych: Extremely guarded may be preoccupied. COURSE, BEHAVIORAL HEALTH COMP - Course Vital Signs: Last Vital Signs Temp 35.7 C L 08/03/21 16:24 Pulse 98 08/03/21 19:45 Resp 20 08/03/21 19:45 BP 171/101 H 08/03/21 19:45 Pulse Ox 96 08/03/21 19:45 Orders, Labs, Meds: Laboratory Tests 08/03/21 08/03/21 08/03/21 Range/Units 16:50 17:03 17:03 WBC 12.53 H (4.23-9.07) K/mm3 RBC 5.72 (4.63-6.08) M/mm3 Hgb 16.5 D (13.7-17.5) gm/dl Hct 48.9 (40.1-51.0) % MCV 85.5 (79.0-92.2) fl MCH 28.8 (25.7-32.2) pg MCHC 33.7 (32.2-35.5) g/dl RDW Std Deviation 40.1 (35.1-43.9) fL Plt Count 358 H (163-337) K/mm3 MPV 10.7 (9.4-12.3) fl Neut % (Auto) 81.0 H (34.0-67.9) % Lymph % (Auto) 10.4 L (21.8-53.1) % Williams % (Auto) 7.8 (5.3-12.2) % Eos % (Auto) 0.3 L (0.8-7.0) Baso % (Auto) 0.3 (0.1-1.2) % Neut # (Auto) 10.14 H (1.78-5.38) K/mm3 Lymph # (Auto) 1.30 L (1.32-3.57) K/mm3 Williams # (Auto) 0.98 H (0.30-0.82) K/mm3 Eos # (Auto) 0.04 (0.04-0.54) K/mm3 Baso # (Auto) 0.04 (0.01-0.08) K/mm3 Sodium 138 (136-145) mEq/L Potassium 3.9 (3.5-5.1) mEq/L Chloride 103 (98-107) mEq/L Carbon Dioxide 21 (21-32) mEq/L Anion Gap 17.9 H (5-15) BUN 14 (7-18) mg/dL Creatinine 1.2 (0.7-1.3) mg/dL Est Cr Clr Drug Dosing 87.87 mL/min Estimated GFR (MDRD) > 60 (>60) mL/min BUN/Creatinine Ratio 11.7 L (14-18) Glucose 117 H (70-99) mg/dL Calcium 9.2 (8.5-10.1) mg/dL Total Bilirubin 0.5 (0.2-1.0) mg/dL AST 30 (15-37) U/L ALT 73 H (16-63) U/L Alkaline Phosphatase 55 (46-116) U/L Total Protein 8.5 H (6.4-8.2) g/dl Albumin 4.3 (3.4-5.0) g/dl Globulin 4.2 gm/dL Albumin/Globulin Ratio 1.0 (1-2) Salicylates (2.8-20) mg/dL Urine Opiates Screen (SGEECQ=751) Ur Buprenorphine Scrn (CUTOFF=10) Ur Oxycodone Screen (YAU1XX=563) Urine Methadone Screen (PLI3TX=323) Ur Propoxyphene Screen (IRXIXQ=871) Acetaminophen 0 L (10-30) ug/mL Ur Barbiturates Screen (HEUMXQ=578) Ur Tricyclics Screen (BMRAMV=246) Ur Phencyclidine Scrn (CUTOFF=25) Ur Amphetamine Screen (SWTACY=556) U Methamphetamines Scrn (VGBPSS=207) U Benzodiazepines Scrn (QLYTJO=691) U Cocaine Metab Screen (UOAJTX=699) U Marijuana (THC) Screen (CUTOFF=50) Ethyl Alcohol 0.00 (0.00) gm% SARS-CoV-2 RNA (GRACIELA) Negative (NEGATIVE) 08/03/21 08/03/21 Range/Units 17:03 18:15 WBC (4.23-9.07) K/mm3 RBC (4.63-6.08) M/mm3 Hgb (13.7-17.5) gm/dl Hct (40.1-51.0) % MCV (79.0-92.2) fl MCH (25.7-32.2) pg MCHC (32.2-35.5) g/dl RDW Std Deviation (35.1-43.9) fL Plt Count (163-337) K/mm3 MPV (9.4-12.3) fl Neut % (Auto) (34.0-67.9) % Lymph % (Auto) (21.8-53.1) % Williams % (Auto) (5.3-12.2) % Eos % (Auto) (0.8-7.0) Baso % (Auto) (0.1-1.2) % Neut # (Auto) (1.78-5.38) K/mm3 Lymph # (Auto) (1.32-3.57) K/mm3 Williams # (Auto) (0.30-0.82) K/mm3 Eos # (Auto) (0.04-0.54) K/mm3 Baso # (Auto) (0.01-0.08) K/mm3 Sodium (136-145) mEq/L Potassium (3.5-5.1) mEq/L Chloride (98-107) mEq/L Carbon Dioxide (21-32) mEq/L Anion Gap (5-15) BUN (7-18) mg/dL Creatinine (0.7-1.3) mg/dL Est Cr Clr Drug Dosing mL/min Estimated GFR (MDRD) (>60) mL/min BUN/Creatinine Ratio (14-18) Glucose (70-99) mg/dL Calcium (8.5-10.1) mg/dL Total Bilirubin (0.2-1.0) mg/dL AST (15-37) U/L ALT (16-63) U/L Alkaline Phosphatase (46-116) U/L Total Protein (6.4-8.2) g/dl Albumin (3.4-5.0) g/dl Globulin gm/dL Albumin/Globulin Ratio (1-2) Salicylates 2.6 L (2.8-20) mg/dL Urine Opiates Screen Negative (ZSORFM=652) Ur Buprenorphine Scrn Negative (CUTOFF=10) Ur Oxycodone Screen Negative (FJE7WT=451) Urine Methadone Screen Negative (HTK1TB=403) Ur Propoxyphene Screen Negative (XORNNY=264) Acetaminophen (10-30) ug/mL Ur Barbiturates Screen Negative (TLVGFA=031) Ur Tricyclics Screen Negative (QFRYYO=824) Ur Phencyclidine Scrn Negative (CUTOFF=25) Ur Amphetamine Screen Negative (PIQPMF=271) U Methamphetamines Scrn Negative (BETJNL=023) U Benzodiazepines Scrn Negative (XLVRPM=044) U Cocaine Metab Screen Negative (OWGCSD=875) U Marijuana (THC) Screen Negative (CUTOFF=50) Ethyl Alcohol (0.00) gm% SARS-CoV-2 RNA (GRACIELA) (NEGATIVE) Departure - Departure Time of Disposition: 19:11 Disposition: DC/Tfer to Psych Hosp/Unit [facility] Clinical Impression: Self-harm, Suicidal thoughts, Auditory hallucinations - Discharge Information Referrals: Indira Braswell MD [Primary Care Provider] - Forms: ED Department Discharge - Assessment/Plan Assessment:: Patient 35-year-old male presenting with suicidal ideations and auditory hallucinations. Based on medical evaluation, patient is medically clear for psychiatric treatment. On my evaluation, patient not safe for discharge home. Patient has longstanding history and active hallucinations/suicidal ideations. Patient was ultimately accepted by Marisa Abdi at [facility]. Patient be transported via law enforcement.
[2021-08-03 17:56] LABS: ACETAMINOPHEN 0 ug/mL (10-30)
[2021-08-03 20:27] VITALS: BP 171/101; PULSE 98
== END 2021-08-03 20:05 ==
LOC: JD.ED 16:03 → SUPCPDRO 16:03 → JD.ED 20:05
DX: R45.851 Suicidal ideations (principal); R44.0 Auditory hallucinations; I10 Essential (primary) hypertension; E03.9 Hypothyroidism, unspecified; R00.0 Tachycardia, unspecified; E66.9 Obesity, unspecified; Z68.38 Body mass index [BMI] 38.0-38.9, adult; Z91.51 Personal history of suicidal behavior; Z72.0 Tobacco use; Z88.1 Allergy status to other antibiotic agents; Z88.0 Allergy status to penicillin; Z79.899 Other long term (current) drug therapy; Z20.822 Contact with and (suspected) exposure to COVID-19
CPT/HCPCS: 36415; 80053; 80143; 80179; 80306; 80307; 85025; 99285; U0002

== ENCOUNTER 2021-10-14 16:12 | Emergency (ER) | payer OTHER, MEDICARE ==
[2021-10-14] MEDS ORDERED: Sodium Chloride 0.9% 10 ML Syringe FLUSH PRN (16:13)
[2021-10-14 16:35] VITALS: BP 169/102; PULSE 111
[2021-10-14 16:51] LABS: ACETAMINOPHEN 0 ug/mL (10-30)
[2021-10-14] MEDS ORDERED: Iopamidol 612 MG/ML 100 ML Bottle IVPUSH ONE (17:01)
[2021-10-14] MEDS ORDERED: Sodium Chloride 0.9% 10 ML Syringe FLUSH ONE (17:01)
[2021-10-14] MEDS ORDERED: Iopamidol 612 MG/ML 50 ML SDV IVPUSH ONE (17:01)
--- NOTE | 2021-10-14 17:08 | CT ---
CT cervical spine Technique: Multiple axial sections were obtained from above the C1 inferiorly to the top of T2. Reconstructed coronal and sagittal images were obtained. Findings: Mild disc space narrowing is seen at C5-6 with anterior osteophytes. Other disc spaces and vertebral body heights are maintained. No bony central canal stenosis or neural foraminal stenosis is seen. No fracture is identified. No abnormal subluxation is seen. Slight mucosal thickening is seen within the right maxillary sinus which is most likely incidental. Moderate mucosal thickening is partially seen within the right side of the sphenoid sinus. This is also likely chronic. Impression: 1. Mild degenerative change. Sinus findings most likely chronic. 2. Nothing acute is seen on CT study of the cervical spine. Diagnostic code #2
--- NOTE | 2021-10-14 17:30 | CT ---
Head CT Technique: Multiple axial sections through the brain were obtained. Intravenous contrast was not utilized. Comparison: Prior head CT study of 03/08/19. Findings: Ventricles along with basal cisterns and sulci over the convexities are within normal limits for the patient's age. No abnormal parenchymal densities are seen. No evidence of intracranial hemorrhage is seen. No midline shift or mass-effect is seen. Mucosal thickening is seen within both maxillary sinuses and sphenoid sinuses as well as ethmoid and frontal sinuses. Findings are fairly similar to previous head CT study. No acute calvarial abnormality is seen. Minimal mucosal thickening is noted within the right mastoid sinus. Previous surgery is noted within the anterior frontal sinus with plate and screws in place. Impression: 1. Chronic appearing sinus findings with previous surgery. 2. No acute intracranial abnormality is appreciated. Diagnostic code #2
--- NOTE | 2021-10-14 17:30 | CT ---
CT chest Technique: Multiple axial sections through the chest were obtained. Intravenous contrast was utilized. Reconstructed coronal and sagittal images were obtained. Findings: No prior chest CT is available, prior chest x-ray of 06/18/21. Findings: Thoracic aorta shows no aneurysm. Mediastinum shows no hematoma or adenopathy. No pericardial fluid is seen. No axillary adenopathy is seen. Lung window settings were reviewed. No acute parenchymal abnormality is seen. No pleural effusions or pneumothorax are seen. Bone window settings were reviewed. Slight degenerative change is seen within the mid and lower thoracic spine. No acute osseous abnormality is appreciated. Very slight increased density is seen within the subcutaneous fat to the right of midline within the chest most likely representing minimal subcutaneous contusion. Impression: 1. Slight degenerative change within the mid and lower thoracic spine. 2. Possible minimal subcutaneous contusion within the fat of the chest to the right of midline. 3. Nothing acute is seen on CT study of the chest. Diagnostic code #2 CT abdomen and pelvis Technique: Multiple axial sections were obtained from above the dome of the diaphragm inferiorly through the pubic symphysis. Intravenous contrast was utilized. No oral contrast has been given. Comparison: No prior CT abdomen or pelvis study is available. Findings: Slight diminished density within the liver located next to the interhemispheric fissure is noted which is likely incidental. Liver otherwise shows diffuse fatty infiltration. Spleen appears within normal limits. Adrenal glands show no nodule. Pancreas shows no discrete abnormality. Kidneys show symmetric contrast enhancement with no hydronephrosis or mass. Gallbladder contains no calcified gallstones. Abdominal aorta shows no aneurysm. No retroperitoneal adenopathy or mesenteric abnormalities are seen. No pelvic mass or adenopathy is seen. No free fluid or inflammatory change is seen. Appendix is seen which is normal in size. Bone window settings were reviewed. Small compression deformity is seen within the superior L1 vertebral body. Uncertain if this is old or acute. Spondylolytic defects are seen at L5-S1 which are likely old. Vacuum disc phenomena are seen within the T7-8 through T10-11 disc. No other acute abnormality is appreciated. Impression: 1. Anterior wedge deformity within the superior L1 vertebral body. Uncertain if this is old or acute. MRI would be needed to further evaluate for age if clinically needed. 2. Degenerative change within the lower thoracic spine with vacuum disc phenomena as noted above. Spondylolytic defects are seen which appear old. 3. Other portions of the CT study of the abdomen and pelvis appear within normal limits with nothing acute otherwise being seen. Diagnostic code #3
[2021-10-14] MEDS ORDERED: Acetaminophen 325 MG Tab PO ONE (17:38)
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
== END 2021-10-14 20:30 ==
LOC: JD.ED 16:12
DX: S32.019A Unspecified fracture of first lumbar vertebra, initial encounter for closed fracture (principal); T14.91XA Suicide attempt, initial encounter; S20.219A Contusion of unspecified front wall of thorax, initial encounter; R44.0 Auditory hallucinations; I10 Essential (primary) hypertension; E03.9 Hypothyroidism, unspecified; R00.0 Tachycardia, unspecified; E66.9 Obesity, unspecified; Z68.41 Body mass index [BMI] 40.0-44.9, adult; Z88.1 Allergy status to other antibiotic agents; Z88.0 Allergy status to penicillin; Z79.899 Other long term (current) drug therapy; Z20.822 Contact with and (suspected) exposure to COVID-19; V49.9XXA Car occupant (driver) (passenger) injured in unspecified traffic accident, initial encounter
CPT/HCPCS: 36415; 70450; 71260; 72125; 74177; 80053; 80143; 80179; 80307; 83690; 85025; 85610; 85730; 93005; 99285; A9270; Q9967; U0002; 93010

== ENCOUNTER 2021-10-15 14:40 | Emergency (ER) | payer MEDICARE ==
[2021-10-15 14:52] VITALS: BP 157/107; PULSE 116
[2021-10-15] MEDS ORDERED: Acetaminophen 325 MG Tab PO ONE (15:27)
--- NOTE | 2021-10-15 15:34 | CR ---
Chest: Portable view of the chest was obtained. Comparison: Prior chest x-ray of 06/18/[address] of 10/14/21. Heart size and mediastinum are normal. Very small density is seen within the right upper lung which is not seen on prior studies and could represent a small area of atelectasis and most likely is incidental. Lungs otherwise are clear. Bony structures show nothing acute. Impression: 1. Small finding as described above. 2. Nothing acute is seen on portable chest x-ray. Diagnostic code #2
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
[2021-10-15 15:56] LABS: ACETAMINOPHEN 0 ug/mL (10-30)
== END 2021-10-15 16:20 ==
LOC: JD.ED 14:40
DX: R07.2 Precordial pain (principal); I10 Essential (primary) hypertension; E03.9 Hypothyroidism, unspecified; E66.9 Obesity, unspecified; Z68.43 Body mass index [BMI] 50.0-59.9, adult; Z87.891 Personal history of nicotine dependence; Z88.1 Allergy status to other antibiotic agents; Z88.0 Allergy status to penicillin; Z79.84 Long term (current) use of oral hypoglycemic drugs; Z79.899 Other long term (current) drug therapy
CPT/HCPCS: 36415; 71045; 80053; 80143; 80179; 84484; 85025; 93005; 99285; A9270; 93010

== ENCOUNTER 2022-03-09 01:34 | Emergency (ER) | payer MEDICARE ==
[2022-03-09 02:01] VITALS: BP 137/85; PULSE 83
[2022-03-09 03:13] LABS: ACETAMINOPHEN 0 ug/mL (10-30)
== END 2022-03-09 07:17 ==
LOC: JD.ED 01:34
DX: R45.851 Suicidal ideations (principal); R44.0 Auditory hallucinations; I10 Essential (primary) hypertension; E03.9 Hypothyroidism, unspecified; E66.9 Obesity, unspecified; Z68.42 Body mass index [BMI] 45.0-49.9, adult; F17.210 Nicotine dependence, cigarettes, uncomplicated; Z79.899 Other long term (current) drug therapy; Z86.16 Personal history of COVID-19; Z88.0 Allergy status to penicillin; Z88.1 Allergy status to other antibiotic agents; Z20.822 Contact with and (suspected) exposure to COVID-19
CPT/HCPCS: 36415; 80053; 80143; 80179; 80306; 80307; 84443; 85025; 93005; 99285; U0002

== ENCOUNTER 2022-08-16 09:34 | Emergency (ER) | payer MEDICARE ==
[2022-08-16] MEDS ORDERED: Lidocaine 1% 20 ML MDV INJECT ONE (11:06)
[2022-08-16] MEDS ORDERED: Lidocaine 1% 30 ML SDV ONE (11:11)
[2022-08-16] MEDS ORDERED: Lidocaine 1% 5 ML VIAL INJECT ONE (12:12)
[2022-08-16] MEDS ORDERED: Lidocaine 1% 30 ML SDV INJECT ONE (12:15)
[2022-08-16] MEDS ORDERED: LORazepam 1 MG Tab PO ONE (16:44)
[2022-08-16 17:15] VITALS: BP 120/79; PULSE 85
== END 2022-08-16 17:45 | disposition home or self-care (01) ==
LOC: JD.ED 09:34
DX: S41.112A Laceration without foreign body of left upper arm, initial encounter (principal); R45.851 Suicidal ideations; I10 Essential (primary) hypertension; F17.210 Nicotine dependence, cigarettes, uncomplicated; E66.9 Obesity, unspecified; Z68.42 Body mass index [BMI] 45.0-49.9, adult; Z88.1 Allergy status to other antibiotic agents; Z88.0 Allergy status to penicillin; Z79.899 Other long term (current) drug therapy; Z86.16 Personal history of COVID-19; Z20.822 Contact with and (suspected) exposure to COVID-19; W26.8XXA Contact with other sharp object(s), not elsewhere classified, initial encounter
CPT/HCPCS: 12004; 36415; 80053; 80143; 80179; 80306; 80307; 85025; 93005; 99285; A9270; U0002

== ENCOUNTER 2022-08-25 12:03 | Emergency (ER) | payer MEDICARE ==
[2022-08-25 12:10] VITALS: BP 122/78; PULSE 86
[2022-08-25 13:15] LABS: ESTIMATED GFR 89 mL/min (>60)
[2022-08-25] MEDS ORDERED: ClonazePAM 0.5 MG Tab PO ONE (13:19)
[2022-08-25 13:25] LABS: ACETAMINOPHEN 0 ug/mL (10-30)
== END 2022-08-25 13:32 ==
LOC: JD.ED 12:03
DX: Z02.89 Encounter for other administrative examinations (principal); I10 Essential (primary) hypertension; E03.9 Hypothyroidism, unspecified; E66.9 Obesity, unspecified; Z88.1 Allergy status to other antibiotic agents; Z88.0 Allergy status to penicillin; Z79.899 Other long term (current) drug therapy; Z20.822 Contact with and (suspected) exposure to COVID-19
CPT/HCPCS: 36415; 80053; 80143; 80179; 80307; 84443; 85025; 93005; 99283; A9270; U0002

== ENCOUNTER 2023-02-24 02:13 | Emergency (ER) | payer MEDICARE ==
[2023-02-24 02:26] VITALS: BP 175/117; PULSE 100
[2023-02-24] MEDS ORDERED: LORazepam 2 MG/ML SDV IM ONE (05:21)
[2023-02-24] MEDS ORDERED: Haloperidol Lactate 5 MG/ML SDV IM ONE (11:10)
== END 2023-02-24 11:26 | disposition home or self-care (01) ==
LOC: JD.ED 02:13
DX: R45.851 Suicidal ideations (principal); I10 Essential (primary) hypertension; E03.9 Hypothyroidism, unspecified; E66.9 Obesity, unspecified; Z68.43 Body mass index [BMI] 50.0-59.9, adult; Z88.1 Allergy status to other antibiotic agents; Z88.0 Allergy status to penicillin; Z79.899 Other long term (current) drug therapy; Z86.16 Personal history of COVID-19; Z20.822 Contact with and (suspected) exposure to COVID-19
CPT/HCPCS: 36415; 80053; 80143; 80179; 80306; 80307; 81001; 84443; 85025; 87086; 96372; 99284; J1630; J2060; U0002

== ENCOUNTER 2023-05-08 16:54 | Emergency (ER) | payer MEDICARE, OTHER ==
[2023-05-08 17:20] LABS: BASOPHILS ABSOLUTE AUTO 0.03 K/mm3 (0.01-0.08); BASOPHILS PERCENT AUTO 0.2 % (0.1-1.2); EOSINOPHILS ABSOLUTE AUTO 0.39 K/mm3 (0.04-0.54); EOSINOPHILS PERCENT AUTO 2.9 (0.8-7.0); HEMATOCRIT 48.6 % (40.1-51.0); HEMOGLOBIN 16.3 gm/dl (13.7-17.5); IMMATURE GRAN ABSOLUTE AUTO 0.03 K/mm3 (0.00-0.10); IMMATURE GRAN PERCENT AUTO 0.2 % (<=1.0); LYMPHOCYTES ABSOLUTE AUTO 3.31 K/mm3 (1.32-3.57); MEAN CORPUSCULAR HEMOGLOBIN 27.9 pg (25.7-32.2); MEAN CORPUSCULAR HGB CONC 33.5 g/dl (32.2-35.5); MEAN CORPUSCULAR VOLUME 83.2 fl (79.0-92.2); MEAN PLATELET VOLUME 10.1 fl (9.4-12.3); MONOCYTES ABSOLUTE AUTO 1.54 K/mm3 (0.30-0.82); MONOCYTES PERCENT AUTO 11.6 % (5.3-12.2); NEUTROPHILS ABSOLUTE AUTO 7.94 K/mm3 (1.78-5.38); NEUTROPHILS PERCENT AUTO 60.1 % (34.0-67.9); PLATELET COUNT,PLT 311 K/mm3 (163-337); RED BLOOD CELL COUNT 5.84 M/mm3 (4.63-6.08); WHITE BLOOD CELL COUNT,WBC 13.24 K/mm3 (4.23-9.07)
[2023-05-08 17:40] LABS: BARBITURATE SCREEN,URINE NEGATIVE (CUTOFF=200); BENZODIAZEPINES SCREEN,URINE NEGATIVE (CUTOFF=150); BUPRENORPHINE SCREEN,URINE NEGATIVE (CUTOFF=10); METHADONE SCREEN, URINE NEGATIVE (CUT0FF=200); METHAMPHETAMINES SCREEN, URINE NEGATIVE (CUTOFF=500); OXYCODONE SCREEN,URINE NEGATIVE (CUT0FF=100); PROPOXYPHENE SCREEN,URINE NEGATIVE (CUTOFF=300); THC SCREEN,URINE 20 NG/ML NEGATIVE (CUTOFF=50)
[2023-05-08 17:50] LABS: ALBUMIN 3.9 g/dl (3.4-5.0); ANION GAP 14.5 (5-15); BILIRUBIN TOTAL 0.5 mg/dL (0.2-1.0); BUN/CREATININE RATIO 10.8 (14-18); CALCIUM 9.3 mg/dL (8.5-10.1); CREATININE 1.2 mg/dL (0.7-1.3); EST CRCL DRUG DOSING (CG) 88.9 mL/min; POTASSIUM,K 3.5 mEq/L (3.5-5.1); TSH 8.129 uIU/mL (0.358-3.74)
[2023-05-08 17:52] LABS: AMPHETAMINES SCREEN, URINE NEGATIVE (CUTOFF=500)
[2023-05-08] MEDS ORDERED: Levothyroxine 25 MCG Tab PO ONE (19:06)
[2023-05-08 21:37] VITALS: BP 130/77; PULSE 92
== END 2023-05-08 19:25 ==
LOC: JD.ED 16:54
DX: F25.9 Schizoaffective disorder, unspecified (principal); F11.10 Opioid abuse, uncomplicated; E03.9 Hypothyroidism, unspecified; I10 Essential (primary) hypertension; E11.9 Type 2 diabetes mellitus without complications; E66.9 Obesity, unspecified; F17.210 Nicotine dependence, cigarettes, uncomplicated; Z68.42 Body mass index [BMI] 45.0-49.9, adult; Z86.16 Personal history of COVID-19; Z88.1 Allergy status to other antibiotic agents; Z88.0 Allergy status to penicillin; Z79.899 Other long term (current) drug therapy
CPT/HCPCS: 36415; 80053; 80306; 80307; 84443; 85025; 99283; A9270

== ENCOUNTER 2023-07-25 08:53 | Emergency (ER) | payer MEDICARE ==
[2023-07-25 08:58] VITALS: BP 134/91; PULSE 100
== END 2023-07-25 09:46 | disposition home or self-care (01) ==
LOC: JD.ED 08:53
DX: S51.812A Laceration without foreign body of left forearm, initial encounter (principal); I10 Essential (primary) hypertension; E11.9 Type 2 diabetes mellitus without complications; E66.9 Obesity, unspecified; F17.210 Nicotine dependence, cigarettes, uncomplicated; Z79.899 Other long term (current) drug therapy; Z88.0 Allergy status to penicillin; Z88.1 Allergy status to other antibiotic agents; Y28.8XXA Contact with other sharp object, undetermined intent, initial encounter; Y92.149 Unspecified place in prison as the place of occurrence of the external cause
CPT/HCPCS: 12004; 99282; 99283

== ENCOUNTER 2023-12-03 08:45 | Emergency (ER) | payer MEDICARE ==
[2023-12-03 08:55] VITALS: BP 141/93; PULSE 81
[2023-12-03 09:25] LABS: BASOPHILS ABSOLUTE AUTO 0.1 K/mm3 (0.0-0.2); BASOPHILS PERCENT AUTO 0.5 % (0.0-1.0); EOSINOPHILS ABSOLUTE AUTO 0.3 K/mm3 (0.0-0.4); EOSINOPHILS PERCENT AUTO 3.6 % (0.0-6.0); HEMATOCRIT 46.7 % (42.0-52.0); HEMOGLOBIN 15.9 gm/dl (14.0-18.0); IMMATURE GRAN ABSOLUTE AUTO 0.02 K/mm3 (0.00-0.05); IMMATURE GRAN PERCENT AUTO 0.2 % (0.0-0.4); LYMPHOCYTES ABSOLUTE AUTO 2.5 K/mm3 (1.0-4.8); LYMPHOCYTES PERCENT AUTO 26.5 % (24.0-44.0); MEAN CORPUSCULAR HEMOGLOBIN 27.7 pg (28.0-32.0); MEAN CORPUSCULAR VOLUME 81.2 fl (83.0-99.0); MEAN PLATELET VOLUME 10.3 fl (9.4-12.4); MONOCYTES ABSOLUTE AUTO 0.8 K/mm3 (0.0-0.8); MONOCYTES PERCENT AUTO 8.7 % (0.0-8.0); NEUTROPHILS ABSOLUTE AUTO 5.6 K/mm3 (1.8-7.7); NEUTROPHILS PERCENT AUTO 60.5 % (41.0-71.0); PLATELET COUNT,PLT 289 K/mm3 (150-400); RED BLOOD CELL COUNT 5.75 M/mm3 (4.52-5.90); WHITE BLOOD CELL COUNT,WBC 9.33 K/mm3 (3.9-11.3)
[2023-12-03 09:58] LABS: ALBUMIN 3.7 g/dl (3.4-5.0); ANION GAP 13.6 (5-15); BILIRUBIN TOTAL 0.6 mg/dL (0.2-1.0); EST CRCL DRUG DOSING (CG) 106.68 mL/min; POTASSIUM,K 3.6 mEq/L (3.5-5.1); PROTEIN TOTAL,TP 7.3 g/dl (6.4-8.2)
== END 2023-12-03 10:34 ==
LOC: JD.ED 08:45
DX: F32.1 Major depressive disorder, single episode, moderate (principal); I10 Essential (primary) hypertension; E66.9 Obesity, unspecified; E11.9 Type 2 diabetes mellitus without complications; E03.9 Hypothyroidism, unspecified; Z68.41 Body mass index [BMI] 40.0-44.9, adult; Z88.0 Allergy status to penicillin; Z88.8 Allergy status to other drugs, medicaments and biological substances; Z86.16 Personal history of COVID-19
CPT/HCPCS: 36415; 80053; 85025; 99285

== ENCOUNTER 2025-07-18 13:17 | Emergency (ER) | payer MEDICARE, OTHER ==
[2025-07-18 14:22] LABS: BASOPHILS ABSOLUTE AUTO 0.1 K/mm3 (0.0-0.2); BASOPHILS PERCENT AUTO 0.6 % (0.0-1.0); EOSINOPHILS ABSOLUTE AUTO 0.3 K/mm3 (0.0-0.4); EOSINOPHILS PERCENT AUTO 2.8 % (0.0-6.0); IMMATURE GRAN ABSOLUTE AUTO 0.07 K/mm3 (0.00-0.05); IMMATURE GRAN PERCENT AUTO 0.7 % (0.0-0.4); LYMPHOCYTES ABSOLUTE AUTO 1.6 K/mm3 (1.0-4.8); LYMPHOCYTES PERCENT AUTO 15.0 % (24.0-44.0); MEAN PLATELET VOLUME 9.6 fl (9.4-12.4); MONOCYTES ABSOLUTE AUTO 0.8 K/mm3 (0.0-0.8); MONOCYTES PERCENT AUTO 7.5 % (0.0-8.0); NEUTROPHILS ABSOLUTE AUTO 7.8 K/mm3 (1.8-7.7); NEUTROPHILS PERCENT AUTO 73.4 % (41.0-71.0); NRBC ABSOLUTE 0.00 (0.00-0.02); NRBC PERCENT 0.0 % (0.0-0.2); PLATELET COUNT,PLT 268 K/mm3 (150-400); RED BLOOD CELL COUNT 5.41 M/mm3 (4.52-5.90); WHITE BLOOD CELL COUNT,WBC 10.59 K/mm3 (3.9-11.3)
[2025-07-18 15:00] LABS: A/G RATIO 0.9 (1-2); ALANINE AMINOTRANSFERASE,ALT 31.0 U/L (16-63); ASPARTATE AMNIOTRANSFERASE,AST 15.0 U/L (15-37); BILIRUBIN TOTAL 0.3 mg/dL (0.2-1.0); BLOOD UREA NITROGEN,BUN 16.0 mg/dL (7-18); CARBON DIOXIDE,CO2 26.0 mEq/L (21-32); CHLORIDE,CL 104.0 mEq/L (98-107); CREATININE 1.0 mg/dL (0.7-1.3); EST CRCL DRUG DOSING (CG) 104.58 mL/min; ESTIMATED GFR 98.0 mL/min (>60); GLUCOSE RANDOM 125.0 mg/dL (70-99); POTASSIUM,K 3.8 mEq/L (3.5-5.1); PROTEIN TOTAL,TP 7.6 g/dl (6.4-8.2); SODIUM,NA 139.0 mEq/L (136-145); TSH 14.985 uIU/mL (0.358-3.74)
[2025-07-18 15:01] LABS: ETHANOL BLOOD MEDICAL 0.0 gm% (0.00)
[2025-07-18 16:20] LABS: BUPRENORPHINE SCREEN,URINE NEGATIVE (CUTOFF=10); METHADONE SCREEN, URINE NEGATIVE (CUT0FF=200); METHAMPHETAMINES SCREEN, URINE NEGATIVE (CUTOFF=500); OXYCODONE SCREEN,URINE NEGATIVE (CUT0FF=100); THC SCREEN,URINE 20 NG/ML NEGATIVE (CUTOFF=50)
[2025-07-18 16:22] LABS: AMPHETAMINES SCREEN, URINE NEGATIVE (CUTOFF=500)
[2025-07-18 16:46] VITALS: BP 137/82; PULSE 76
== END 2025-07-18 16:47 | disposition home or self-care (01) ==
LOC: JD.ED 13:17
DX: F22 Delusional disorders (principal); I10 Essential (primary) hypertension; E66.9 Obesity, unspecified; E11.9 Type 2 diabetes mellitus without complications; E03.9 Hypothyroidism, unspecified; Z88.0 Allergy status to penicillin; Z88.8 Allergy status to other drugs, medicaments and biological substances; Z79.890 Hormone replacement therapy; Z79.899 Other long term (current) drug therapy; Z86.16 Personal history of COVID-19; Z68.42 Body mass index [BMI] 45.0-49.9, adult
CPT/HCPCS: 36415; 80053; 80143; 80179; 80306; 80307; 84443; 85025; 99284; A9270